=== PATIENT | male | born 1975 | race African-American/Black ===

== ENCOUNTER 2016-07-27 13:52 | Emergency (ER) | payer BC, OTHER ==
--- NOTE | 2016-07-27 15:33 | ED ---
General Adult HPI - General Chief complaint: Abdominal Pain Stated complaint: back pain Time Seen by Provider: 07/27/16 15:07 Source: patient, RN notes reviewed Mode of arrival: ambulatory Limitations: no limitations - History of Present Illness Initial comments: Patient 41-year-old male who presents emergency room today with a chief complaint of back pain with symptoms of nausea. He does admit that symptoms started yesterday in his back radiating around to the front of the epigastric area. States he felt somewhat nauseated and queasy today. Patient denies any vomiting. Patient denies any other sick contacts. He does admit that his back pain is worse with movements. Admits to a physical job is unsure if this is related. Patient states she did not take anything for these symptoms. He states he did miss work earlier today because he was not feeling well. Patient denies any recent fever, chills, shortness of breath, chest pain, abdominal pain , vomiting, numbness or tingling, dysuria or hematuria, constipation or diarrhea , headaches or visual changes, or any other complaints. - Related Data Home Medications Medication Instructions Recorded Confirmed Insulin Glargine [Lantus] 30 unit SQ QAM 05/22/16 05/26/16 Insulin Aspart [NovoLOG] See Protocol SQ AC-TID PRN 05/26/16 05/26/16 Previous Rx's Medication Instructions Recorded Cyclobenzaprine [Flexeril] 10 mg PO TID #20 tab 07/27/16 Ibuprofen [Motrin] 600 mg PO Q6HR PRN #40 day 07/27/16 Ondansetron Odt [Zofran ODT] 4 mg PO Q8HR PRN #20 tab 07/27/16 Allergies Allergy/AdvReac Type Severity Reaction Status Date / Time No Known Allergies Allergy Verified 05/26/16 15:25 Review of Systems ROS Statement: Those systems with pertinent positive or pertinent negative responses have been documented in the HPI. ROS Other: All systems not noted in ROS Statement are negative. Past Medical History Past Medical History: Diabetes Mellitus, Hypertension History of Any Multi-Drug Resistant Organisms: None Reported Past Surgical History: No Surgical Hx Reported Additional Past Surgical History / Comment(s): nephrotic syndrome repair as a child Past Psychological History: No Psychological Hx Reported Smoking Status: Current some day smoker Past Alcohol Use History: None Reported Past Drug Use History: Marijuana General Exam - General Exam Comments Initial Comments: General: The patient is awake and alert, in no distress, and does not appear acutely ill. Eye: Pupils are equal, round and reactive to light, extra-ocular movements are intact. No nystagmus. There is normal conjunctiva bilaterally. No signs of icterus. Ears, nose, mouth and throat: There are moist mucous membranes and no oral lesions. Neck: The neck is supple, there is no tenderness or JVD. Cardiovascular: There is a regular rate and rhythm. No murmur, rub or gallop is appreciated. Respiratory: Lungs are clear to auscultation, respirations are non-labored, breath sounds are equal. No wheezes, stridor, rales, or rhonchi. Gastrointestinal: Soft, non-distended, non-tender abdomen without masses or organomegaly noted. There is no rebound or guarding present. No CVA tenderness. Bowel sounds are unremarkable. Musculoskeletal: Normal appearance of the thoracic, lumbar spine. No step-offs form is appreciated. Patient does have paravertebral tenderness both on the right and left side of the upper lumbar. Pain reproduced with turning twisting and bending. Strength 5/5. Sensation intact. Pulses equal bilaterally 2+. Neurological: A&O x 3. CN II-XII intact, There are no obvious motor or sensory deficits. Coordination appears grossly intact. Speech is normal. Skin: Skin is warm and dry and no rashes or lesions are noted. Psychiatric: Cooperative, appropriate mood & affect, normal judgment. Limitations: no limitations Course Vital Signs 07/27/16 14:06 Temperature 98.6 F Pulse Rate 74 Respiratory 17 Rate Blood Pressure 134/75 O2 Sat by Pulse 99 Oximetry Medical Decision Making - Medical Decision Making It was discussed with patient about IV labs along with medications here in the emergency room. He has declined states he feels comfortable being discharged home with pain medicine, muscle relaxant, and nausea medication. Patient states he does need a work note for today. Patient has been advised to return to emergency room if any symptoms increase or worsen or for any other concerns. Patient states understanding and is in agreement. Disposition Clinical Impression: Back pain, Nausea Disposition: HOME SELF-CARE Condition: Good Instructions: Low Back Strain (ED) Additional Instructions: Please use medication as discussed. Beware that muscle relaxant may make you drowsy. Please follow-up with family doctor in the next 2 days of symptoms have not improved. Please return to emergency room if the symptoms increase or worsen or for any other concerns. Prescriptions: Cyclobenzaprine [Flexeril] 10 mg PO TID #20 tab Ibuprofen [Motrin] 600 mg PO Q6HR PRN #40 day PRN Reason: Pain Ondansetron Odt [Zofran ODT] 4 mg PO Q8HR PRN #20 tab PRN Reason: Nausea Time of Disposition: 15:32
[2016-07-27 15:43] VITALS: BP 141/86; PULSE 71; RESP 18; TEMP 98.3
== END 2016-07-27 15:43 | disposition home or self-care (01) ==
LOC: EC 13:52
DX: M54.9 Dorsalgia, unspecified (principal); R11.0 Nausea; E11.9 Type 2 diabetes mellitus without complications; F17.200 Nicotine dependence, unspecified, uncomplicated; Z79.4 Long term (current) use of insulin
CPT/HCPCS: 99283

== ENCOUNTER → 2016-08-01 | Outpatient (CLI) | payer BC, OTHER ==
--- NOTE | 2016-08-01 08:32 | US ---
EXAMINATION TYPE: US kidneys/renal and bladder DATE OF EXAM: 08/01/2016 8:23 AM COMPARISON: No previous CLINICAL HISTORY: Abd Pain r10.84 Low back pain m54.5. Abdomen and back pain x 3 days EXAM MEASUREMENTS: Right Kidney: 12.2 x 5.0 x 5.1 cm Left Kidney: 11.3 x 6.2 x 5.2 cm TECHNOLOGIST IMPRESSION: Right Kidney: wnl Left Kidney: wnl Bladder: wnl Bilateral Jets seen: yes There is no evidence for hydronephrosis at this point in time. No nephrolithiasis is seen. No krystle s are identified. The urinary bladder is anechoic. Bilateral ureteral jets are seen. IMPRESSION: Unremarkable study.
== END | disposition home or self-care (01) ==
LOC: RADUSWWP 08:02
PROVIDERS: ATTEND Family Medicine
DX: R10.84 Generalized abdominal pain (principal); M54.5 Low back pain
CPT/HCPCS: 76770

== ENCOUNTER → 2016-08-13 | Outpatient (CLI) | payer BC, OTHER ==
--- NOTE | 2016-08-13 08:34 | US ---
EXAMINATION TYPE: US gallbladder DATE OF EXAM: 08/13/2016 8:10 AM COMPARISON: NONE CLINICAL HISTORY: R10.84 ABD PAIN. Patient stated had epigastric pain 2 weeks prior, but no more symp toms are present; diabetic. Patient is scheduled for Upper GI today. EXAM MEASUREMENTS: Liver Length: 12.4cm Gallbladder Wall: 0.2 cm CBD: 0.3 cm Right Kidney: 11.4 x 5.9 x 4.3 cm Findings: Pancreas: wnl Liver: wnl Gallbladder: wnl; appears partially contracted due to thicker wall appearance (patient stated only h ad piece of hard candy this AM as is diabetic). Evidence for sonographic Lee's sign: No CBD: wnl Right Kidney: wnl IMPRESSION: 1. The gallbladder appears contracted. No obvious cholelithiasis.
--- NOTE | 2016-08-13 09:09 | FL ---
EXAMINATION TYPE: FL UGI air wo esophagus wo KUB DATE OF EXAM: 08/13/2016 9:01 AM COMPARISON: NONE HISTORY: R10.84 ABD.PAIN TECHNIQUE: A double contrast UGI study is performed. FINDINGS: Atmospheric Sciences Professor image of the abdomen shows no gross abnormality. The esophagus shows normal motility and emptying into the stomach. No evidence of hiatal hernia or s tricture noted. The stomach shows normal distensibility, peristalsis, and mucosal folds. No evidence of any mass or ulcer disease. No significant gastroesophageal reflux was seen during real time performance of this study. There are increased folds are noted to involve the duodenal bulb and sweep which may reflect duodenit is. No evidence for ulceration. IMPRESSION: Correlate for duodenitis.
== END | disposition home or self-care (01) ==
LOC: RADUSWWP 07:48
PROVIDERS: ATTEND Family Medicine
DX: K82.0 Obstruction of gallbladder (principal); R10.84 Generalized abdominal pain
CPT/HCPCS: 74246; 76705

== ENCOUNTER 2016-08-23 19:30 | Emergency (ER) | payer BC, OTHER ==
[2016-08-23 19:53] VITALS: BP 137/68; PULSE 89; RESP 16; TEMP 97.6
[2016-08-23 20:00] LABS: Glucose,Whole Blood 569 mg/dL (75-99)
[2016-08-23] MEDS ORDERED: SODIUM CHLORIDE 0.9% 2,000 ML IV ONE (20:03)
[2016-08-23] MEDS ORDERED: INSULIN LISPRO (humaLOG) 300 UNIT/3 ML VIAL SQ ONE (20:04)
[2016-08-23] MEDS ORDERED: INSULIN DETEMIR 100 UNIT/ML 10 ML VIAL SQ STA (20:04)
[2016-08-23 21:05] LABS: Glucose,Whole Blood 587 mg/dL (75-99)
--- NOTE | 2016-08-23 21:05 | ED ---
Recheck HPI - General Chief Complaint: Recheck/Abnormal Lab/Rx Stated Complaint: high sugar Time Seen by Provider: 08/23/16 19:48 Source: patient, RN notes reviewed Mode of arrival: ambulatory Limitations: no limitations - History of Present Illness Initial Comments: 41-year-old male present emergency Department chief complaint of medication refill. Patient is out of his insulin and which she takes NovoLog and Lantus. Patient states he has a prescription that he can fill morning. Patient states he ran out today. Patient denies any nausea, vomiting, diarrhea constipation. Patient denies fever, chills. Patient states that he is a known diabetic since age 17. Patient denies chest pain, headache, dizziness and cold like symptoms no signs of infection. - Related Data Home Medications Medication Instructions Recorded Confirmed Insulin Glargine [Lantus] 30 unit SQ QAM 05/22/16 08/23/16 Insulin Aspart [NovoLOG] See Protocol SQ AC-TID 05/26/16 08/23/16 Allergies Allergy/AdvReac Type Severity Reaction Status Date / Time No Known Allergies Allergy Verified 08/23/16 20:16 Review of Systems ROS Statement: Those systems with pertinent positive or pertinent negative responses have been documented in the HPI. ROS Other: All systems not noted in ROS Statement are negative. Past Medical History Past Medical History: Diabetes Mellitus, Hypertension History of Any Multi-Drug Resistant Organisms: None Reported Past Surgical History: No Surgical Hx Reported Additional Past Surgical History / Comment(s): nephrotic syndrome repair as a child Past Psychological History: No Psychological Hx Reported Smoking Status: Current every day smoker Past Alcohol Use History: None Reported Past Drug Use History: Marijuana General Exam Limitations: no limitations General appearance: alert, in no apparent distress Head exam: Present: atraumatic, normocephalic, normal inspection Eye exam: Present: normal appearance, PERRL, EOMI. Absent: scleral icterus, conjunctival injection, periorbital swelling ENT exam: Present: normal exam, normal oropharynx, mucous membranes moist, TM's normal bilaterally, normal external ear exam Neck exam: Present: normal inspection, full ROM. Absent: tenderness, meningismus, lymphadenopathy Respiratory exam: Present: normal lung sounds bilaterally. Absent: respiratory distress, wheezes, rales, rhonchi, stridor Cardiovascular Exam: Present: regular rate, normal rhythm, normal heart sounds. Absent: systolic murmur, diastolic murmur, rubs, gallop, clicks GI/Abdominal exam: Present: soft, normal bowel sounds. Absent: distended, tenderness, guarding, rebound, rigid Neurological exam: Present: alert, oriented X3, CN II-XII intact Course Vital Signs 08/23/16 19:48 Temperature 97.6 F Pulse Rate 89 Respiratory 16 Rate Blood Pressure 137/68 O2 Sat by Pulse 98 Oximetry Medical Decision Making - Medical Decision Making 41-year-old male presented for medication refill, hyperglycemia. Patient's blood sugars over 500. Patient is refusing IV, labs, IV fluids. Patient was given subcu insulin in which his sugar has now changed. Actually went up. Patient was refusing to stay for any further treatment stating that will go down. Patient will be signed out AGAINST MEDICAL ADVICE at this time. I did want a patient's that this can be life-threatening and he may develop DKA. - Lab Data Lab Results 08/23/16 08/23/16 Range/Units 19:56 21:02 POC Glucose (mg/dL) 569 H 587 H (75-99) mg/dL POC Glu Able Bodied Seaman ID Melissa Jade A Beers, Erika, A Disposition Clinical Impression: Hyperglycemia Disposition: Left Against Medical Advice Condition: Fair Referrals: Rubén Puente MD [Primary Care Provider] - 1-2 days Time of Disposition: 21:05
== END 2016-08-23 21:13 | disposition left against medical advice (07) ==
LOC: EC 19:30
DX: E11.65 Type 2 diabetes mellitus with hyperglycemia (principal); F17.200 Nicotine dependence, unspecified, uncomplicated; Z79.4 Long term (current) use of insulin
CPT/HCPCS: 36415; 99283

== ENCOUNTER 2016-10-08 18:41 | Emergency (ER) | payer BC, OTHER ==
[~2016-10-08 18:41] MED LIST: INSULIN LISPRO (humaLOG) 300 UNIT/3 ML VIAL SQ ONE
[2016-10-08 19:09] LABS: Glucose,Whole Blood 508 mg/dL (75-99)
[2016-10-08] MEDS ORDERED: INSULIN LISPRO (humaLOG) 300 UNIT/3 ML VIAL SQ ONE (19:10)
--- NOTE | 2016-10-08 19:15 | ED ---
General Adult HPI - General Chief complaint: Recheck/Abnormal Lab/Rx Stated complaint: diabetes high Time Seen by Provider: 10/08/16 19:02 Source: patient, RN notes reviewed Mode of arrival: ambulatory Limitations: no limitations - History of Present Illness Initial comments: Patient's 41-year-old male who presents emergency room today with a chief complaint of needing insulin. Patient does admit that he missed his appointment with his family doctor and ran out of his insulin. He does admit that he can feel that his insulins been running high for the last 2 days. He states that he has been experiencing less often. He states he has been thirsty drinking lots of fluids. He denies any other complaints associated symptoms. Patient denies any recent fever, chills, shortness of breath, chest pain, back pain, abdominal pain, nausea or vomiting, numbness or tingling, dysuria or hematuria, constipation or diarrhea, headaches or visual changes, or any other complaints. - Related Data Home Medications Medication Instructions Recorded Confirmed Insulin Glargine [Lantus] 30 unit SQ QAM 05/22/16 08/23/16 Insulin Aspart [NovoLOG] See Protocol SQ AC-TID 05/26/16 08/23/16 Allergies Allergy/AdvReac Type Severity Reaction Status Date / Time No Known Allergies Allergy Verified 10/08/16 19:06 Review of Systems ROS Statement: Those systems with pertinent positive or pertinent negative responses have been documented in the HPI. ROS Other: All systems not noted in ROS Statement are negative. Past Medical History Past Medical History: Diabetes Mellitus, Hypertension History of Any Multi-Drug Resistant Organisms: None Reported Past Surgical History: No Surgical Hx Reported Additional Past Surgical History / Comment(s): nephrotic syndrome repair as a child Past Psychological History: No Psychological Hx Reported Smoking Status: Current every day smoker Past Alcohol Use History: None Reported Past Drug Use History: Marijuana General Exam - General Exam Comments Initial Comments: General: The patient is awake and alert, in no distress, and does not appear acutely ill. Eye: Pupils are equal, round and reactive to light, extra-ocular movements are intact. No nystagmus. There is normal conjunctiva bilaterally. No signs of icterus. Ears, nose, mouth and throat: There are moist mucous membranes and no oral lesions. Neck: The neck is supple, there is no tenderness or JVD. Cardiovascular: There is a regular rate and rhythm. No murmur, rub or gallop is appreciated. Respiratory: Lungs are clear to auscultation, respirations are non-labored, breath sounds are equal. No wheezes, stridor, rales, or rhonchi. Gastrointestinal: Soft, non-distended, non-tender abdomen without masses or organomegaly noted. There is no rebound or guarding present. No CVA tenderness. Musculoskeletal: Normal ROM, no tenderness. Strength 5/5. Sensation intact. Pulses equal bilaterally 2+. Neurological: A&O x 3. CN II-XII intact, There are no obvious motor or sensory deficits. Coordination appears grossly intact. Speech is normal. Skin: Skin is warm and dry and no rashes or lesions are noted. Psychiatric: Cooperative, appropriate mood & affect, normal judgment. Limitations: no limitations Course Vital Signs 10/08/16 18:59 Temperature 99.2 F Pulse Rate 75 Respiratory 18 Rate Blood Pressure 157/72 O2 Sat by Pulse 96 Oximetry Medical Decision Making - Medical Decision Making Options were discussed with patient about lab work and IV here in the emergency room. He has declined this. States she just wants a shot of his insulin. Patient denies any nausea, vomiting. He denies any abdominal pain. Patient states he will see his family doctor tomorrow for his prescriptions in the morning. Patient states is not 1 any other interventions done. Patient will be discharged after some cutaneous insulin here in emergency room. - Lab Data Lab Results 10/08/16 Range/Units 19:04 POC Glucose (mg/dL) 508 H (75-99) mg/dL POC Glu Hr Specialist Shavonne Velasquze Disposition Clinical Impression: Hyperglycemia Disposition: HOME SELF-CARE Condition: Good Instructions: Diabetic Hyperglycemia (ED) Additional Instructions: Please follow-up with your family doctor tomorrow for your prescriptions as discussed. Please return to emergency room if any symptoms increase worsen or for any other concerns. Time of Disposition: 19:14
[2016-10-08 19:19] VITALS: BP 157/72; PULSE 75; RESP 18; TEMP 99.2
[2016-10-08] MEDS ORDERED: INSULIN GLARGINE 100 UNIT/ML 10 ML VIAL SQ STA (19:31)
== END 2016-10-08 19:38 | disposition home or self-care (01) ==
LOC: EC 18:41
DX: E11.65 Type 2 diabetes mellitus with hyperglycemia (principal); I10 Essential (primary) hypertension; F17.200 Nicotine dependence, unspecified, uncomplicated; Z79.4 Long term (current) use of insulin
CPT/HCPCS: 36415; 99284

== ENCOUNTER 2016-12-22 04:11 | Emergency (ER) | payer OTHER ==
[2016-12-22 04:54] VITALS: TEMP 97.8
[2016-12-22] MEDS ORDERED: ASPIRIN 81 MG CHEW PO STA (05:04)
[2016-12-22] MEDS ORDERED: MORPHINE SULFATE 4 MG/ML SYRINGE IV STA (05:04)
[2016-12-22] MEDS ORDERED: KETOROLAC 30 MG/ML 1 ML VIAL IVP STA (05:04)
--- NOTE | 2016-12-22 05:08 | ED ---
Chest Pain HPI - General Chief Complaint: Chest Pain Stated Complaint: chest pain-muscular Time Seen by Provider: 12/22/16 04:58 Source: patient Mode of arrival: ambulatory - History of Present Illness Initial Comments: This 41-year-old white male presents with a complaint of some chest pain. He states that it is in the midsternal region. It started 3 days ago after he was helping to lift a fridge. He states that it is a very sharp pain and is worse with any movement or deep inspiration. He states that it is severely painful if he sneezes. He has some slight shortness of breath with deep inspiration. He was having some right shoulder pain issues over the past year with movement of his shoulder but this seems to have improved recently. He denies any previous similar incidents. He tried Motrin with limited relief. No other complaints or modifying factors. There is no leg pain or swelling or history of DVT or PE. - Related Data Home Medications Medication Instructions Recorded Confirmed Insulin Glargine [Lantus] 30 unit SQ QAM 05/22/16 10/08/16 Insulin Aspart [NovoLOG] See Protocol SQ AC-TID 05/26/16 10/08/16 Allergies Allergy/AdvReac Type Severity Reaction Status Date / Time No Known Allergies Allergy Verified 10/08/16 19:22 Review of Systems ROS Statement: Those systems with pertinent positive or pertinent negative responses have been documented in the HPI. ROS Other: All systems not noted in ROS Statement are negative. Past Medical History Past Medical History: Diabetes Mellitus, Hypertension History of Any Multi-Drug Resistant Organisms: None Reported Past Surgical History: No Surgical Hx Reported Additional Past Surgical History / Comment(s): nephrotic syndrome repair as a child Past Psychological History: No Psychological Hx Reported Smoking Status: Current every day smoker Past Alcohol Use History: None Reported Past Drug Use History: Marijuana General Exam - General Exam Comments Initial Comments: GENERAL: The patient is well nourished and well hydrated. VITAL SIGNS: Heart rate, blood pressure, respiratory rate reviewed as recorded in nurse's notes. EYES: Pupils are round and reactive. Extraocular movements are intact. No conjunctival / lid redness or swelling. ENT: No external evidence of injury, swelling, or ecchymosis. Airway is patent. Throat is clear. NECK: Nontender. No swelling or evidence of injury. No subcutaneous emphysema. Trachea is midline. No thyroid mass. HEART: Regular rate and rhythm. Good peripheral pulses. LUNGS/CHEST: Breath sounds clear and equal bilaterally. No rales, rhonchi, or wheezes. There is exquisite point tenderness over the costochondral junction of the anterior chest bilaterally. ABDOMEN: Abdomen soft without tenderness. No palpable masses or organomegaly. No peritoneal signs. No abdominal wall swelling or ecchymosis. EXTREMITIES: No extremity tenderness. Normal muscle tone and function. No thoracolumbar tenderness. NEUROLOGIC: Sensation is grossly intact. Cranial nerve exam reveals face is symmetrical, tongue is midline, speech is clear. SKIN: No abrasions or ecchymosis is noted. No induration or masses noted. PSYCHIATRIC: Alert and oriented. Appropriate behavior and judgment. Course Vital Signs 12/22/16 12/22/16 04:51 06:47 Temperature 97.8 F Pulse Rate 69 72 Respiratory 18 20 Rate Blood Pressure 132/76 169/110 O2 Sat by Pulse 100 99 Oximetry Chest [facility] The patient was seen and examined. All diagnostics were reviewed. An EKG was done which shows a normal sinus rhythm at a rate of 68. There does appear to be some ST elevation primarily in the anterolateral leads. This was compared to previous EKG and it does show similar type of appearance likely related to early repolarization. The [place] interval is 134, the QRS duration is 100, and the QTc interval is 404. He does receive an aspirin as well as some Toradol and 4 of morphine. The laboratory does show evidence of hypoglycemia. He is given some juice and food in the ER. He is asymptomatic from this. Remainder of the labs are all within normal limits. The chest x-ray does not show any acute process. He does receive some morphine and has some moderate relief. It is felt as though his chest pain is very musculoskeletal in nature. He is point tender directly over the costochondral region bilaterally. His pain is very sharp and it is easily reproducible. It is felt as though he is stable for discharge. He refuses any home pain medications but states that he will take some Motrin. He leaves in no identifiable distress. He is counseled regarding hypoglycemia as well. He hadn't ate since approximate 7:00 the past evening which is approximately 12 hours. He is counseled regarding diet therapy and diabetes. Disposition Clinical Impression: Chest wall pain, Costochondritis, Hypoglycemia Disposition: HOME SELF-CARE Condition: Good Instructions: Chest Pain (ED), Costochondritis (ED), Hypoglycemia in a Person with Diabetes (ED) Additional Instructions: Please use Tylenol and/or Motrin as needed for any additional pain. Referrals: Rubén Puente MD [Primary Care Provider] - 1-2 days Time of Disposition: 06:59
[2016-12-22 05:46] LABS: Basophils % (A) 0 %; CH 33.6; CHCM 35.4; Eosinophils # (A) 0.1 k/uL (0-0.7); Eosinophils % (A) 2 %; HCT 39.3 % (39.0-53.0); HDW 2.74; Luc # (Auto) 0.11; Luc % (Auto) 1; Lymphocytes # (A) 1.6 k/uL (1.0-4.8); Lymphocytes % (A) 17 %; MCHC 35.6 g/dL (31.0-37.0); MCV 95.3 fL (80.0-100.0); Mean Platelet Volume 7.9; Monocytes # (A) 0.5 k/uL (0-1.0); Monocytes % (A) 6 %; Neutrophils # (A) 6.6 k/uL (1.3-7.7); Neutrophils % (A) 74 %; RBC 4.12 m/uL (4.30-5.90); RDW 12.3 % (11.5-15.5); WBC (Perox) 8.85
[2016-12-22 06:02] LABS: INR 1.2 (<1.2); Partial Thromboplastin Time 23.3 sec (22.0-30.0); Prothrombin Time 11.7 sec (9.0-12.0)
[2016-12-22 06:13] LABS: ALT 25 U/L (21-72); AST 25 U/L (17-59); Alkaline Phosphatase 64 U/L (38-126); Anion Gap 4 mmol/L; Blood Urea Nitrogen 10 mg/dL (9-20); Calcium 8.9 mg/dL (8.4-10.2); Carbon Dioxide 31 mmol/L (22-30); Chloride 107 mmol/L (98-107); Magnesium 1.7 mg/dL (1.6-2.3); Non-African American GFR(MDRD) >60 (>60 ml/min/1.73 sqM); Potassium 3.9 mmol/L (3.5-5.1); Sodium 142 mmol/L (137-145); Total Bilirubin 0.8 mg/dL (0.2-1.3); Total Protein 5.9 g/dL (6.3-8.2)
[2016-12-22 06:20] LABS: Creatine Kinase 344 U/L (55-170)
[2016-12-22 06:33] LABS: Creatine Kinase MB 1.6 ng/mL (0.0-2.4); Troponin I <0.012 ng/mL (0.000-0.034)
--- NOTE | 2016-12-22 06:33 | XR ---
EXAM: XR Chest, 2 Views CLINICAL HISTORY: Reason: Chest Pain TECHNIQUE: Frontal and lateral views of the chest. COMPARISON: No relevant prior studies available. FINDINGS: Lungs: Unremarkable. No consolidation. Pleural space: Unremarkable. No pneumothorax. Heart: Unremarkable. No cardiomegaly. Mediastinum: Unremarkable. Bones/joints: Unremarkable. IMPRESSION: Normal chest x-rays.
[2016-12-22 06:48] VITALS: PULSE 72; RESP 20
[2016-12-22 07:06] LABS: Glucose 47 mg/dL (74-99)
[2016-12-22 07:22] LABS: Glucose,Whole Blood 140 mg/dL (75-99)
[2016-12-22 07:27] VITALS: BP 172/102
== END 2016-12-22 07:23 | disposition home or self-care (01) ==
LOC: EC 04:11
DX: M94.0 Chondrocostal junction syndrome [Tietze] (principal); E11.649 Type 2 diabetes mellitus with hypoglycemia without coma; M25.511 Pain in right shoulder; I10 Essential (primary) hypertension; F17.200 Nicotine dependence, unspecified, uncomplicated; Z79.4 Long term (current) use of insulin
CPT/HCPCS: 36415; 93005; 80053; 82550; 82553; 83735; 84484; 85025; 85610; 85730; 71020; 99285; 96374; 96375; J2270; J1885

== ENCOUNTER 2016-12-23 05:53 | Emergency (ER) | payer OTHER ==
[2016-12-23] MEDS ORDERED: KETOROLAC 30 MG/ML 1 ML VIAL IVP STA (06:10)
[2016-12-23 06:43] LABS: Basophils % (A) 0 %; CH 33.5; CHCM 34.9; Eosinophils # (A) 0.3 k/uL (0-0.7); Eosinophils % (A) 5 %; HCT 40.1 % (39.0-53.0); HDW 2.75; HGB 14.1 gm/dL (13.0-17.5); Luc # (Auto) 0.07; Luc % (Auto) 1; Lymphocytes # (A) 1.3 k/uL (1.0-4.8); Lymphocytes % (A) 19 %; MCH 33.9 pg (25.0-35.0); MCHC 35.2 g/dL (31.0-37.0); MCV 96.3 fL (80.0-100.0); Mean Platelet Volume 7.5; Monocytes # (A) 0.3 k/uL (0-1.0); Monocytes % (A) 5 %; Neutrophils # (A) 4.5 k/uL (1.3-7.7); Neutrophils % (A) 69 %; RBC 4.16 m/uL (4.30-5.90); RDW 11.8 % (11.5-15.5); WBC 6.5 k/uL (3.8-10.6); WBC (Perox) 7.03
--- NOTE | 2016-12-23 06:49 | ED ---
Chest Pain HPI - General Source: patient Mode of arrival: ambulatory Limitations: no limitations - History of Present Illness MD Complaint: chest pain Onset/Timin -: days(s) Onset: during rest Pain Location: left chest, right chest Pain Radiation: none Severity: severe Quality: sharp Consistency: constant Improves With: remaining still Worsens With: palpation, movement, other (Coughing) Context: recent illness Other Symptoms: cough Treatments Prior to Arrival: none <Jonathon Aj - Last Filed: 12/23/16 06:52> <Trevor Oshea - Last Filed: 12/23/16 09:12> - General Chief Complaint: Chest Pain Stated Complaint: Chest Pain Time Seen by Provider: 12/23/16 06:02 - History of Present Illness Initial Comments: This patient is a 41-year-old man who states that he is not going on for days of having bilateral chest pain along the sternal border. Patient states that it is worse anytime he changes position, touches his chest, or coughs. He has been having frequent cough for the past 3-4 days as well. The patient was seen here and evaluated yesterday for the same. The patient denies having anginal type symptoms, including no dyspnea, diaphoresis, nausea or vomiting, palpitations, lightheadedness or syncope. (Jonathon Aj) - Related Data Home Medications Medication Instructions Recorded Confirmed Insulin Glargine [Lantus] 30 unit SQ QAM 05/22/16 12/23/16 Insulin Aspart [NovoLOG] See Protocol SQ AC-TID 05/26/16 12/23/16 Allergies Allergy/AdvReac Type Severity Reaction Status Date / Time No Known Allergies Allergy Verified 12/23/16 08:14 Review of Systems ROS Other: All systems not noted in ROS Statement are negative. Constitutional: Denies: fever, chills, weakness Respiratory: Reports: as per HPI, cough. Denies: dyspnea, wheezes, hemoptysis Cardiovascular: Reports: as per HPI, chest pain. Denies: palpitations, orthopnea, edema, syncope Gastrointestinal: Denies: abdominal pain, nausea, vomiting Genitourinary: Denies: dysuria Musculoskeletal: Denies: back pain Skin: Denies: rash Neurological: Denies: headache, weakness, numbness <Jonathon Aj - Last Filed: 12/23/16 06:52> ROS Other: All systems not noted in ROS Statement are negative. <Trevor Oshea - Last Filed: 12/23/16 09:12> ROS Statement: Those systems with pertinent positive or pertinent negative responses have been documented in the HPI. EKG Findings - EKG Comments: EKG Findings:: Patient has sinus rhythm with a rate of [address] elevation consistent with early repolarization. - EKG Results: EKG: interpreted by ERMD, normal axis, normal QRS, no acute changes EKG shows: bradycardia <Jonathon Aj - Last Filed: 12/23/16 06:52> Past Medical History Past Medical History: Diabetes Mellitus, Hypertension History of Any Multi-Drug Resistant Organisms: None Reported Past Surgical History: No Surgical Hx Reported Additional Past Surgical History / Comment(s): nephrotic syndrome repair as a child Past Psychological History: No Psychological Hx Reported Smoking Status: Current every day smoker Past Alcohol Use History: None Reported Past Drug Use History: Marijuana <Jean MarieJonathon - Last Filed: 12/23/16 06:52> General Exam Limitations: no limitations General appearance: alert, in no apparent distress Head exam: Present: atraumatic, normocephalic Eye exam: Present: normal appearance. Absent: scleral icterus, conjunctival injection Neck exam: Present: full ROM Respiratory exam: Present: normal lung sounds bilaterally, chest wall tenderness. Absent: respiratory distress, wheezes, rales, rhonchi, stridor Cardiovascular Exam: Present: regular rate, normal rhythm, normal heart sounds. Absent: systolic murmur, diastolic murmur, rubs, gallop GI/Abdominal exam: Present: soft. Absent: tenderness, guarding, rebound, mass Extremities exam: Present: normal inspection, normal capillary refill. Absent: pedal edema, calf tenderness Back exam: Present: normal inspection. Absent: CVA tenderness (R), CVA tenderness (L) Neurological exam: Present: alert Skin exam: Present: warm, dry, intact, normal color. Absent: rash <Jean MarieJonathon - Last Filed: 12/23/16 06:52> Chest Pain MDM <Jean MarieJonathon - Last Filed: 12/23/16 06:52> <Trevor Oshea - Last Filed: 12/23/16 09:12> - MDM 41 male to the ER for evaluation of chest pain history of diabetes, patient has negative enzymes 2 ER visits, patient was given pain control follow-up in the office with Dr. Givens (Trevor Oshea) Disposition <Jonathon Aj - Last Filed: 12/23/16 06:52> <Trevor Oshea - Last Filed: 12/23/16 09:12> Clinical Impression: Chest wall pain, Costochondritis, Chest pain Disposition: ADMITTED IP TO THIS HOSP Condition: Fair Instructions: Chest Pain (ED), Costochondritis (ED) Referrals: Rubén Puente MD [Primary Care Provider] - 1-2 days
[2016-12-23 06:53] LABS: ALT 33 U/L (21-72); AST 22 U/L (17-59); Alkaline Phosphatase 82 U/L (38-126); Amylase 45 U/L (30-110); Anion Gap 4 mmol/L; Blood Urea Nitrogen 15 mg/dL (9-20); Calcium 8.8 mg/dL (8.4-10.2); Carbon Dioxide 31 mmol/L (22-30); Chloride 102 mmol/L (98-107); Glucose 205 mg/dL (74-99); Magnesium 1.7 mg/dL (1.6-2.3); Non-African American GFR(MDRD) >60 (>60 ml/min/1.73 sqM); Potassium 4.4 mmol/L (3.5-5.1); Sodium 137 mmol/L (137-145); Total Bilirubin 0.6 mg/dL (0.2-1.3); Total Protein 5.8 g/dL (6.3-8.2)
--- NOTE | 2016-12-23 06:58 | XR ---
EXAM: XR Chest, 1 View CLINICAL HISTORY: Reason: chest pain TECHNIQUE: Frontal view of the chest. COMPARISON: Radiographs of the chest performed earlier the same day. FINDINGS: Lungs: Unremarkable. No consolidation. Pleural space: Unremarkable. No pneumothorax. Heart: Unremarkable. No cardiomegaly. Mediastinum: Unremarkable. Bones/joints: Unremarkable. IMPRESSION: Normal chest x-ray.
[2016-12-23 07:11] LABS: INR 1.1 (<1.2); Prothrombin Time 11.1 sec (9.0-12.0)
[2016-12-23] MEDS ORDERED: MORPHINE SULFATE 4 MG/ML SYRINGE IV PRN (09:05)
[2016-12-23] MEDS ORDERED: ASPIRIN 81 MG CHEW PO STA (09:05)
[2016-12-23] MEDS ORDERED: NITROGLYCERIN SL TABS 0.4 MG TAB SUBLINGUAL PRN (09:05)
[2016-12-23] MEDS ORDERED: SODIUM CHLORIDE 0.9% 1,000 ML IV SCH (09:15)
[2016-12-23 09:21] VITALS: BP 148/89; PULSE 70; RESP 18; TEMP 97.7
[2016-12-24] MEDS ORDERED: ASPIRIN 325 MG TAB PO SCH (09:00)
== END 2016-12-23 09:30 | disposition other institution (70) ==
LOC: EC 05:53
DX: M94.0 Chondrocostal junction syndrome [Tietze] (principal); R00.1 Bradycardia, unspecified; E11.9 Type 2 diabetes mellitus without complications; F17.200 Nicotine dependence, unspecified, uncomplicated; Z79.4 Long term (current) use of insulin
CPT/HCPCS: 99285; 96374; 36415; 93005; 85379; 80053; 82150; 83690; 83735; 84484; 85025; 85610; 85730; 87040; 71010; J1885

== ENCOUNTER 2017-05-30 22:14 | Emergency (ER) | payer OTHER ==
[2017-05-30 22:18] VITALS: BP 164/88; PULSE 82; RESP 18; TEMP 97.3
[2017-05-30 22:28] LABS: Glucose,Whole Blood 525 mg/dL (75-99)
[2017-05-30] MEDS ORDERED: SODIUM CHLORIDE 0.9% 1,000 ML IV STA ×2 (22:41)
[2017-05-30] MEDS ORDERED: INSULIN REGULAR 100 UNIT/ML VIAL IV ONE (22:42)
--- NOTE | 2017-05-30 23:00 | ED ---
General Adult HPI - General Chief complaint: Recheck/Abnormal Lab/Rx Stated complaint: Sugar level High Time Seen by Provider: 05/30/17 22:27 Source: patient, RN notes reviewed, old records reviewed Mode of arrival: ambulatory Limitations: no limitations - History of Present Illness Initial comments: 41-year-old male presents for his Mg today chief complaint of high blood sugars. He reportedly was 600 when he was at work. He did have insulin at 3: 00 today. No recent and some was given. He reports he does not feel like he is in DKA at this time, denies any abdominal pain, diarrhea or vomiting. - Related Data Home Medications Medication Instructions Recorded Confirmed Insulin Glargine [Lantus] 30 unit SQ DAILY 05/22/16 05/30/17 Insulin Aspart [NovoLOG] See Protocol SQ AC-TID 05/26/16 05/30/17 Allergies Allergy/AdvReac Type Severity Reaction Status Date / Time No Known Allergies Allergy Verified 05/30/17 22:23 Review of Systems ROS Statement: Those systems with pertinent positive or pertinent negative responses have been documented in the HPI. ROS Other: All systems not noted in ROS Statement are negative. Past Medical History Past Medical History: Diabetes Mellitus, Hypertension History of Any Multi-Drug Resistant Organisms: None Reported Past Surgical History: No Surgical Hx Reported Additional Past Surgical History / Comment(s): nephrotic syndrome repair as a child Past Psychological History: No Psychological Hx Reported Smoking Status: Current every day smoker Past Alcohol Use History: None Reported Past Drug Use History: Marijuana General Exam - General Exam Comments Initial Comments: Well appearing 41 year old male, no distress Limitations: no limitations General appearance: alert, in no apparent distress Head exam: Present: atraumatic, normocephalic, normal inspection Eye exam: Present: normal appearance, PERRL, EOMI. Absent: scleral icterus, conjunctival injection, periorbital swelling ENT exam: Present: normal exam, mucous membranes moist Neck exam: Present: normal inspection. Absent: tenderness, meningismus, lymphadenopathy Respiratory exam: Present: normal lung sounds bilaterally. Absent: respiratory distress, wheezes, rales, rhonchi, stridor Cardiovascular Exam: Present: regular rate, normal rhythm, normal heart sounds. Absent: systolic murmur, diastolic murmur, rubs, gallop, clicks GI/Abdominal exam: Present: soft, normal bowel sounds. Absent: distended, tenderness, guarding, rebound, rigid Back exam: Present: normal inspection Neurological exam: Present: alert, oriented X3, CN II-XII intact Psychiatric exam: Present: normal affect, normal mood Course Vital Signs 05/30/17 05/31/17 22:16 00:25 Temperature 97.3 F L Pulse Rate 82 Respiratory 18 18 Rate Blood Pressure 164/88 O2 Sat by Pulse 100 Oximetry Medical Decision Making - Medical Decision Making Patient is a 41 year old male with insulin depenedent diabetes, presents today for elevated blood sugar. Patient took it at work and it was over 600. Patient did not take insulin recently. Discussed checking lab work to determine if patient is in DKA. Patient refused IV. Discussed that he thinks he is not in DKA due to no vomiting or symptoms of DKA. Discussed that if he refuses IV, will dose insulin and monitor blood sugar. Patient BG was brought down to an acceptable rnge and patient request discharge. Return parameters discussd. - Lab Data Lab Results 05/30/17 05/30/17 05/30/17 Range/Units 22:25 23:15 23:47 POC Glucose (mg/dL) 525 H 491 H 336 H (75-99) mg/dL POC Glu Spray Painter Jo Ann Lozoya Emily Kajawa, Emily 05/31/17 Range/Units 00:14 POC Glucose (mg/dL) 184 H (75-99) mg/dL POC Glu Spray Painter ID Jo Ann Marcus Disposition Clinical Impression: Hyperglycemia Disposition: HOME SELF-CARE Condition: Good Instructions: Insulin Scale A ([facility]), Diabetic Hyperglycemia (ED) Additional Instructions: Follow up with her primary care provider. He is to use insulin sliding scale as you're supposed to. Return to emergency department if any alarming signs or symptoms occur. Referrals: Rubén Puente MD [Primary Care Provider] - 1-2 days Time of Disposition: 00:18
[2017-05-30 23:17] LABS: Glucose,Whole Blood 491 mg/dL (75-99)
[2017-05-30 23:48] LABS: Glucose,Whole Blood 336 mg/dL (75-99)
[2017-05-31 00:16] LABS: Glucose,Whole Blood 184 mg/dL (75-99)
== END 2017-05-31 00:25 | disposition home or self-care (01) ==
LOC: EC 22:14
DX: E11.65 Type 2 diabetes mellitus with hyperglycemia (principal); F17.200 Nicotine dependence, unspecified, uncomplicated; Z79.4 Long term (current) use of insulin; Z53.20 Procedure and treatment not carried out because of patient's decision for unspecified reasons
CPT/HCPCS: 36415; 99284

== ENCOUNTER 2017-06-20 12:39 | Emergency (ER) | payer OTHER ==
[2017-06-20] MEDS ORDERED: SODIUM CHLORIDE 0.9% 1,000 ML IV STA (13:46)
--- NOTE | 2017-06-20 14:15 | ED ---
Nausea/Vomiting/Diarrhea HPI - General Chief complaint: Nausea/Vomiting/Diarrhea Stated complaint: Flu symptoms Time Seen by Provider: 06/20/17 13:46 Source: patient, RN notes reviewed Mode of arrival: ambulatory Limitations: no limitations - History of Present Illness Initial comments: This a 41-year-old male presents emergency Department chief complaint of diarrhea. Patient states that diarrhea for 2 days. Sutures eats he has occasional loose watery. He states she's had multiple people at work with similar symptoms. He denies any vomiting slight nausea. Patient states that is also but ran out of his Lantus and NovoLog. He states his blood sugars have been slightly variable. Patient denies any chest pain, shortness breath, fever , chills, headache or dizziness. Patient states he does feel that he may be dehydrated. - Related Data Previous Rx's Medication Instructions Recorded Insulin Aspart [NovoLOG] See Protocol SQ AC-TID #1 vial 06/20/17 Insulin Glargine [Lantus] 30 unit SQ DAILY #1 vial 06/20/17 Allergies Allergy/AdvReac Type Severity Reaction Status Date / Time No Known Allergies Allergy Verified 06/20/17 14:06 Review of Systems ROS Statement: Those systems with pertinent positive or pertinent negative responses have been documented in the HPI. ROS Other: All systems not noted in ROS Statement are negative. Past Medical History Past Medical History: Diabetes Mellitus, Hypertension History of Any Multi-Drug Resistant Organisms: None Reported Past Surgical History: No Surgical Hx Reported Additional Past Surgical History / Comment(s): nephrotic syndrome repair as a child Past Psychological History: No Psychological Hx Reported Smoking Status: Current every day smoker Past Alcohol Use History: Occasional Past Drug Use History: Marijuana General Exam Limitations: no limitations General appearance: alert, in no apparent distress Head exam: Present: atraumatic, normocephalic, normal inspection Eye exam: Present: normal appearance, PERRL, EOMI. Absent: scleral icterus, conjunctival injection, periorbital swelling ENT exam: Present: normal exam, normal oropharynx, mucous membranes moist Neck exam: Present: normal inspection, full ROM. Absent: tenderness, meningismus, lymphadenopathy Respiratory exam: Present: normal lung sounds bilaterally. Absent: respiratory distress, wheezes, rales, rhonchi, stridor Cardiovascular Exam: Present: regular rate, normal rhythm, normal heart sounds. Absent: systolic murmur, diastolic murmur, rubs, gallop, clicks GI/Abdominal exam: Present: soft, normal bowel sounds. Absent: distended, tenderness, guarding, rebound, rigid Back exam: Absent: CVA tenderness (R), CVA tenderness (L) Neurological exam: Present: alert, oriented X3, CN II-XII intact Skin exam: Present: warm, dry, intact, normal color. Absent: rash Course Vital Signs 06/20/17 06/20/17 13:33 15:26 Temperature 97 F L Pulse Rate 74 64 Respiratory 18 19 Rate Blood Pressure 133/82 138/78 O2 Sat by Pulse 97 99 Oximetry Medical Decision Making - Medical Decision Making 41-year-old male present emergency department for diarrhea. Patient attempted for 2 days has had multiple contacts with some her symptoms. This is most with a viral diarrhea. Patient had elevated blood sugar was given 2 L of fluid, insulin. Blood sugar has responded well. Patient states he feels enough for discharge at this time he'll be given prescription for his insulin advised follow-up for recheck. - Lab Data Result diagrams: 06/20/17 13:59 06/20/17 13:59 Lab Results 06/20/17 06/20/17 06/20/17 Range/Units 13:59 13:59 13:59 WBC 5.9 (3.8-10.6) k/uL RBC 4.58 (4.30-5.90) m/uL Hgb 14.4 (13.0-17.5) gm/dL Hct 44.1 (39.0-53.0) % MCV 96.2 (80.0-100.0) fL MCH 31.5 (25.0-35.0) pg MCHC 32.7 (31.0-37.0) g/dL RDW 12.9 (11.5-15.5) % Plt Count 238 (150-450) k/uL Neutrophils % 70 % Lymphocytes % 22 % Monocytes % 4 % Eosinophils % 3 % Basophils % 0 % Neutrophils # 4.1 (1.3-7.7) k/uL Lymphocytes # 1.3 (1.0-4.8) k/uL Monocytes # 0.3 (0-1.0) k/uL Eosinophils # 0.2 (0-0.7) k/uL Basophils # 0.0 (0-0.2) k/uL Sodium 130 L (137-145) mmol/L Potassium 5.0 (3.5-5.1) mmol/L Chloride 95 L (98-107) mmol/L Carbon Dioxide 26 (22-30) mmol/L Anion Gap 9 mmol/L BUN 20 (9-20) mg/dL Creatinine 1.02 (0.66-1.25) mg/dL Est GFR (MDRD) Af Amer >60 (>60 ml/min/1.73 sqM) Est GFR (MDRD) Non-Af >60 (>60 ml/min/1.73 sqM) Glucose 678 H* (74-99) mg/dL POC Glucose (mg/dL) (75-99) mg/dL POC Glu Transformation Consultant ID Calcium 9.4 (8.4-10.2) mg/dL Total Bilirubin 0.6 (0.2-1.3) mg/dL AST 25 (17-59) U/L ALT 44 (21-72) U/L Alkaline Phosphatase 144 H (38-126) U/L Total Protein 6.0 L (6.3-8.2) g/dL Albumin 3.6 (3.5-5.0) g/dL Amylase 51 (30-110) U/L Lipase 54 (23-300) U/L Urine Color Urine Appearance (Clear) Urine pH (5.0-8.0) Ur Specific [place] (1.001-1.035) Urine Protein (Negative) Urine Glucose (UA) (Negative) Urine Ketones (Negative) Urine Blood (Negative) Urine Nitrite (Negative) Urine Bilirubin (Negative) Urine Urobilinogen (<2.0) mg/dL Ur Leukocyte Esterase (Negative) Acetone, Qual Negative (Negative) 06/20/17 06/20/17 06/20/17 Range/Units 14:15 14:27 15:02 WBC (3.8-10.6) k/uL RBC (4.30-5.90) m/uL Hgb (13.0-17.5) gm/dL Hct (39.0-53.0) % MCV (80.0-100.0) fL MCH (25.0-35.0) pg MCHC (31.0-37.0) g/dL RDW (11.5-15.5) % Plt Count (150-450) k/uL Neutrophils % % Lymphocytes % % Monocytes % % Eosinophils % % Basophils % % Neutrophils # (1.3-7.7) k/uL Lymphocytes # (1.0-4.8) k/uL Monocytes # (0-1.0) k/uL Eosinophils # (0-0.7) k/uL Basophils # (0-0.2) k/uL Sodium (137-145) mmol/L Potassium (3.5-5.1) mmol/L Chloride (98-107) mmol/L Carbon Dioxide (22-30) mmol/L Anion Gap mmol/L BUN (9-20) mg/dL Creatinine (0.66-1.25) mg/dL Est GFR (MDRD) Af Amer (>60 ml/min/1.73 sqM) Est GFR (MDRD) Non-Af (>60 ml/min/1.73 sqM) Glucose (74-99) mg/dL POC Glucose (mg/dL) >600 H 418 H (75-99) mg/dL POC Glu Transformation Consultant Erika Carpenter Joanna Calcium (8.4-10.2) mg/dL Total Bilirubin (0.2-1.3) mg/dL AST (17-59) U/L ALT (21-72) U/L Alkaline Phosphatase (38-126) U/L Total Protein (6.3-8.2) g/dL Albumin (3.5-5.0) g/dL Amylase (30-110) U/L Lipase (23-300) U/L Urine Color Colorless Urine Appearance Clear (Clear) Urine pH 6.0 (5.0-8.0) Ur Specific [place] 1.023 (1.001-1.035) Urine Protein Negative (Negative) Urine Glucose (UA) 4+ H (Negative) Urine Ketones Negative (Negative) Urine Blood Negative (Negative) Urine Nitrite Negative (Negative) Urine Bilirubin Negative (Negative) Urine Urobilinogen <2.0 (<2.0) mg/dL Ur Leukocyte Esterase Negative (Negative) Acetone, Qual (Negative) 06/20/17 Range/Units 16:22 WBC (3.8-10.6) k/uL RBC (4.30-5.90) m/uL Hgb (13.0-17.5) gm/dL Hct (39.0-53.0) % MCV (80.0-100.0) fL MCH (25.0-35.0) pg MCHC (31.0-37.0) g/dL RDW (11.5-15.5) % Plt Count (150-450) k/uL Neutrophils % % Lymphocytes % % Monocytes % % Eosinophils % % Basophils % % Neutrophils # (1.3-7.7) k/uL Lymphocytes # (1.0-4.8) k/uL Monocytes # (0-1.0) k/uL Eosinophils # (0-0.7) k/uL Basophils # (0-0.2) k/uL Sodium (137-145) mmol/L Potassium (3.5-5.1) mmol/L Chloride (98-107) mmol/L Carbon Dioxide (22-30) mmol/L Anion Gap mmol/L BUN (9-20) mg/dL Creatinine (0.66-1.25) mg/dL Est GFR (MDRD) Af Amer (>60 ml/min/1.73 sqM) Est GFR (MDRD) Non-Af (>60 ml/min/1.73 sqM) Glucose (74-99) mg/dL POC Glucose (mg/dL) 261 H (75-99) mg/dL POC Glu Transformation Consultant ID Erika Morrell Calcium (8.4-10.2) mg/dL Total Bilirubin (0.2-1.3) mg/dL AST (17-59) U/L ALT (21-72) U/L Alkaline Phosphatase (38-126) U/L Total Protein (6.3-8.2) g/dL Albumin (3.5-5.0) g/dL Amylase (30-110) U/L Lipase (23-300) U/L Urine Color Urine Appearance (Clear) Urine pH (5.0-8.0) Ur Specific [place] (1.001-1.035) Urine Protein (Negative) Urine Glucose (UA) (Negative) Urine Ketones (Negative) Urine Blood (Negative) Urine Nitrite (Negative) Urine Bilirubin (Negative) Urine Urobilinogen (<2.0) mg/dL Ur Leukocyte Esterase (Negative) Acetone, Qual (Negative) Disposition Clinical Impression: Diarrhea, Hyperglycemia Disposition: HOME SELF-CARE Condition: Stable Instructions: Acute Diarrhea (ED) Additional Instructions: Please return to the Emergency Department if symptoms worsen or any other concerns. Prescriptions: Insulin Aspart [NovoLOG] See Protocol SQ AC-TID #1 vial Insulin Glargine [Lantus] 30 unit SQ DAILY #1 vial Referrals: Rubén Puente MD [Primary Care Provider] - 1-2 days Time of Disposition: 16:26
[2017-06-20 14:16] LABS: Basophils % (A) 0 %; Eosinophils # (A) 0.2 k/uL (0-0.7); Eosinophils % (A) 3 %; HCT 44.1 % (39.0-53.0); HGB 14.4 gm/dL (13.0-17.5); Lymphocytes # (A) 1.3 k/uL (1.0-4.8); Lymphocytes % (A) 22 %; MCH 31.5 pg (25.0-35.0); MCHC 32.7 g/dL (31.0-37.0); MCV 96.2 fL (80.0-100.0); Mean Platelet Volume 8.1; Monocytes # (A) 0.3 k/uL (0-1.0); Monocytes % (A) 4 %; Neutrophils # (A) 4.1 k/uL (1.3-7.7); Neutrophils % (A) 70 %; Platelet Count 238 k/uL (150-450); RBC 4.58 m/uL (4.30-5.90); RDW 12.9 % (11.5-15.5); WBC 5.9 k/uL (3.8-10.6)
[2017-06-20 14:17] LABS: Glucose,Whole Blood >600 mg/dL (75-99)
[2017-06-20] MEDS ORDERED: SODIUM CHLORIDE 0.9% 1,000 ML IV ONE ×2 (14:18→15:10)
[2017-06-20] MEDS ORDERED: INSULIN REGULAR 100 UNIT/ML VIAL IV ONE (14:18)
[2017-06-20 14:31] LABS: ALT 44 U/L (21-72); AST 25 U/L (17-59); Albumin 3.6 g/dL (3.5-5.0); Alkaline Phosphatase 144 U/L (38-126); Amylase 51 U/L (30-110); Anion Gap 9 mmol/L; Blood Urea Nitrogen 20 mg/dL (9-20); Calcium 9.4 mg/dL (8.4-10.2); Carbon Dioxide 26 mmol/L (22-30); Chloride 95 mmol/L (98-107); Lipase 54 U/L (23-300); Sodium 130 mmol/L (137-145); Total Bilirubin 0.6 mg/dL (0.2-1.3)
[2017-06-20 14:40] LABS: Appearance,Urine Clear (Clear); Bilirubin,Urine Negative (Negative); Blood,Urine Negative (Negative); Color,Urine Colorless; Glucose,Urine (UA) 4+ (Negative); Ketones,Urine Negative (Negative); Leukocyte Esterase,Urine Negative (Negative); Nitrite,Urine Negative (Negative); Protein,Urine Negative (Negative); Specific Gravity,Urine 1.023 (1.001-1.035); Urobilinogen,Urine <2.0 mg/dL (<2.0)
[2017-06-20] MEDS ORDERED: SULFAMETHOX-TMP 800-160MG 1 EACH TAB PO STA (14:44)
[2017-06-20 14:49] LABS: Glucose 678 mg/dL (74-99)
[2017-06-20 15:04] LABS: Glucose,Whole Blood 418 mg/dL (75-99)
[2017-06-20] MEDS ORDERED: INSULIN ASPART 100 UNIT/ML 1 ML 10 ML VIAL SQ ONE ×2 (15:10→15:35)
[2017-06-20 15:29] VITALS: RESP 19
[2017-06-20 16:25] LABS: Glucose,Whole Blood 261 mg/dL (75-99)
[2017-06-20 16:28] VITALS: BP 137/88; PULSE 66; TEMP 98
== END 2017-06-20 16:40 | disposition home or self-care (01) ==
LOC: EC 12:39
DX: R19.7 Diarrhea, unspecified (principal); E11.65 Type 2 diabetes mellitus with hyperglycemia; F17.200 Nicotine dependence, unspecified, uncomplicated
CPT/HCPCS: 36415; 80053; 81003; 82009; 82150; 83690; 85025; 96360; 96361; 99284

== ENCOUNTER 2018-03-11 07:15 | Emergency (ER) | payer OTHER ==
[2018-03-11 07:29] VITALS: TEMP 98.3
--- NOTE | 2018-03-11 07:50 | ED ---
Extremity Problem HPI - General Chief complaint: Extremity Problem,Nontraumatic Stated complaint: Male Time Seen by Provider: 03/11/18 07:33 Source: patient, RN notes reviewed, old records reviewed Mode of arrival: ambulatory Limitations: no limitations - History of Present Illness Initial comments: 42-year-old male presents with chief complaint of 2 days of lower extremity swelling. Patient reports that today after working penile swelling. Patient reports that he's had no dysuria or hematuria. He states he's had no trauma to the area. He recently was discharged from residential one week ago. Patient has had recent intercourse with his girlfriend. He states that he does not any abnormal penile discharge as well. He states that he has had no fevers or chills. Denies any chest pain or shortness of breath. He is a diabetic. - Related Data Home Medications Medication Instructions Recorded Confirmed Insulin Aspart [NovoLOG] See Protocol SQ AC-TID 03/11/18 03/11/18 Insulin Glargine [Lantus] 30 unit SQ HS@1800 03/11/18 03/11/18 Previous Rx's Medication Instructions Recorded Sulfamethox-Tmp 800-160Mg [Bactrim 1 tab PO Q12HR #10 tab 03/11/18 DS 800-160 mg] Allergies Allergy/AdvReac Type Severity Reaction Status Date / Time No Known Allergies Allergy Verified 03/11/18 07:58 Review of Systems ROS Statement: Those systems with pertinent positive or pertinent negative responses have been documented in the HPI. ROS Other: All systems not noted in ROS Statement are negative. Past Medical History Past Medical History: Diabetes Mellitus, Hypertension History of Any Multi-Drug Resistant Organisms: None Reported Past Surgical History: No Surgical Hx Reported Additional Past Surgical History / Comment(s): nephrotic syndrome repair as a child Past Psychological History: No Psychological Hx Reported Smoking Status: Former smoker Past Alcohol Use History: None Reported Past Drug Use History: None Reported General Exam - General Exam Comments Initial Comments: 42-year-old male. Alert and oriented. No significant distress. Limitations: no limitations General appearance: alert, in no apparent distress Head exam: Present: atraumatic, normocephalic, normal inspection Eye exam: Present: normal appearance, PERRL, EOMI. Absent: scleral icterus, conjunctival injection, periorbital swelling ENT exam: Present: normal exam, mucous membranes moist Neck exam: Present: normal inspection. Absent: tenderness, meningismus, lymphadenopathy Respiratory exam: Present: normal lung sounds bilaterally. Absent: respiratory distress, wheezes, rales, rhonchi, stridor Cardiovascular Exam: Present: regular rate, normal rhythm, normal heart sounds. Absent: systolic murmur, diastolic murmur, rubs, gallop, clicks exam: Present: other (Penile swelling.). Absent: normal inspection, testicular tenderness, urethral discharge, scrotal swelling, vertical testicular lie, circumcision Extremities exam: Present: normal inspection, full ROM, normal capillary refill , other (Evidence of 1+ pedal edema bilaterally.). Absent: tenderness, pedal edema, joint swelling, calf tenderness Back exam: Present: normal inspection Neurological exam: Present: alert, oriented X3, CN II-XII intact Psychiatric exam: Present: normal affect, normal mood Skin exam: Present: warm, dry, intact, normal color. Absent: rash Course Vital Signs 03/11/18 07:24 Temperature 98.3 F Pulse Rate 83 Respiratory 18 Rate Blood Pressure 168/81 O2 Sat by Pulse 99 Oximetry Medical Decision Making - Medical Decision Making Patient is a 42-year-old male presents emergency Department with bilateral edema lower extremities as well as penile edema. He recently was discharged from residential. He states that he has been having intercourse with his girlfriend. Urinalysis today does show some signs of infection with white blood cells and red blood cells. He does have significant penile edema. No evidence of return. No scrotal tenderness or swelling. No evidence of penile discharge. At this time urinalysis does show 4+ protein. I did discuss the possibility of nephrotic syndrome with the Patient. We did check his kidney function and that was within normal limits. Blood sugar is well-controlled at 144. Patient at this time will be treated with Rocephin and azithromycin emergency apartment. We'll discharge the Patient with outpatient prescription for Cipro to cover for other etiology for urine. Urine culture and Chlamydia and gonorrhea testing are pending. I discussed that he needs to have a low sodium diet and have close follow-up with his primary care physician within the week. Patient agrees to treatment plan will comply. Return parameters were discussed. - Lab Data Result diagrams: 03/11/18 07:50 03/11/18 07:50 Lab Results 1003/11/18 03/11/18 Range/Units 07:50 07:50 07:50 WBC 6.5 (3.8-10.6) k/uL RBC 3.84 L (4.30-5.90) m/uL Hgb 12.3 L (13.0-17.5) gm/dL Hct 35.9 L (39.0-53.0) % MCV 93.5 (80.0-100.0) fL MCH 32.1 (25.0-35.0) pg MCHC 34.3 (31.0-37.0) g/dL RDW 12.0 (11.5-15.5) % Plt Count 233 (150-450) k/uL Neutrophils % 77 % Lymphocytes % 16 % Monocytes % 5 % Eosinophils % 2 % Basophils % 0 % Neutrophils # 5.0 (1.3-7.7) k/uL Lymphocytes # 1.0 (1.0-4.8) k/uL Monocytes # 0.3 (0-1.0) k/uL Eosinophils # 0.1 (0-0.7) k/uL Basophils # 0.0 (0-0.2) k/uL Sodium 140 (137-145) mmol/L Potassium 4.1 (3.5-5.1) mmol/L Chloride 108 H (98-107) mmol/L Carbon Dioxide 28 (22-30) mmol/L Anion Gap 4 mmol/L BUN 16 (9-20) mg/dL Creatinine 0.86 (0.66-1.25) mg/dL Est GFR (CKD-EPI)AfAm >90 (>60 ml/min/1.73 sqM) Est GFR (CKD-EPI)NonAf >90 (>60 ml/min/1.73 sqM) Glucose 144 H (74-99) mg/dL Calcium 8.4 (8.4-10.2) mg/dL Urine Color Yellow Urine Appearance Clear (Clear) Urine pH 6.5 (5.0-8.0) Ur Specific [place] 1.028 (1.001-1.035) Urine Protein 4+ H (Negative) Urine Glucose (UA) 1+ H (Negative) Urine Ketones Negative (Negative) Urine Blood Moderate H (Negative) Urine Nitrite Negative (Negative) Urine Bilirubin Negative (Negative) Urine Urobilinogen <2.0 (<2.0) mg/dL Ur Leukocyte Esterase Small H (Negative) Urine RBC 6 H (0-5) /hpf Urine WBC 30 H (0-5) /hpf Ur Squamous Epith Cells 1 (0-4) /hpf Hyaline Casts 4 H (0-2) /lpf Urine Mucus Few H (None) /hpf Disposition Clinical Impression: Proteinuria, Urinary tract infection in male Disposition: HOME SELF-CARE Condition: Good Instructions: Urinary Tract Infection in Men (ED), Chronic Kidney Disease Diet (DC) Additional Instructions: Patient has follow up with primary care physician. Follow-up with the next 1- 2 days. Take antibiotic as prescribed. Rest, and elevate her legs. Patient should avoid salt in your diet. Return to the emergency department if any alarming signs or symptoms occur. Prescriptions: Sulfamethox-Tmp 800-160Mg [Bactrim DS 800-160 mg] 1 tab PO Q12HR #10 tab Is patient prescribed a controlled substance at d/c from ED?: No Referrals: Rubén Puente MD [Primary Care Provider] - 1-2 days Time of Disposition: 08:32
[2018-03-11 08:12] LABS: Basophils % (A) 0 %; Eosinophils # (A) 0.1 k/uL (0-0.7); Eosinophils % (A) 2 %; HCT 35.9 % (39.0-53.0); HGB 12.3 gm/dL (13.0-17.5); Lymphocytes % (A) 16 %; MCH 32.1 pg (25.0-35.0); MCHC 34.3 g/dL (31.0-37.0); MCV 93.5 fL (80.0-100.0); Mean Platelet Volume 7.2; Monocytes # (A) 0.3 k/uL (0-1.0); Monocytes % (A) 5 %; Neutrophils % (A) 77 %; Platelet Count 233 k/uL (150-450); RBC 3.84 m/uL (4.30-5.90); WBC 6.5 k/uL (3.8-10.6)
[2018-03-11 08:20] LABS: Anion Gap 4 mmol/L; Appearance,Urine Clear (Clear); Bilirubin,Urine Negative (Negative); Blood Urea Nitrogen 16 mg/dL (9-20); Blood,Urine Moderate (Negative); Calcium 8.4 mg/dL (8.4-10.2); Carbon Dioxide 28 mmol/L (22-30); Chloride 108 mmol/L (98-107); Color,Urine Yellow; Glucose 144 mg/dL (74-99); Glucose,Urine (UA) 1+ (Negative); Hyaline Casts,Urine 4 /lpf (0-2); Ketones,Urine Negative (Negative); Leukocyte Esterase,Urine Small (Negative); Mucus,Urine Few /hpf; Nitrite,Urine Negative (Negative); PH, Urine 6.5 (5.0-8.0); Potassium 4.1 mmol/L (3.5-5.1); Protein,Urine 4+ (Negative); RBC,Urine 6 /hpf (0-5); Sodium 140 mmol/L (137-145); Specific Gravity,Urine 1.028 (1.001-1.035); Squamous Epithelial Cell,Urine 1 /hpf (0-4); Urobilinogen,Urine <2.0 mg/dL (<2.0); WBC,Urine 30 /hpf (0-5)
[2018-03-11] MEDS ORDERED: AZITHROMYCIN 500 MG TAB PO STA (08:30)
[2018-03-11] MEDS ORDERED: cefTRIAXone 250 MG VIAL IM STA (08:30)
[2018-03-11] MEDS ORDERED: LIDOCAINE 1% INJ 10MG/ML (20 ML MDV) SQ ONE (09:03)
[2018-03-11 09:26] VITALS: BP 161/93; PULSE 77; RESP 16
[2018-03-12 15:06] LABS: C. trachomatis,PCR Negative (Neg,Equiv); Chlamydia trachomatis Source Urine
[2018-03-12 15:08] LABS: N. gonorrhoeae,PCR Negative (Neg,Equiv); Neisseria Source Urine
== END 2018-03-11 09:24 | disposition home or self-care (01) ==
LOC: EC 07:15
DX: N39.0 Urinary tract infection, site not specified (principal); R80.9 Proteinuria, unspecified; M79.89 Other specified soft tissue disorders; N48.89 Other specified disorders of penis; E11.9 Type 2 diabetes mellitus without complications; Z87.891 Personal history of nicotine dependence; Z79.4 Long term (current) use of insulin
CPT/HCPCS: 36415; 83880; 80048; 85025; 81001; 87491; 87591; 87086; 99284; 96372; J2001; J0696

== ENCOUNTER → 2018-04-07 | Outpatient (CLI) | payer OTHER ==
[2018-04-07 12:59] LABS: Basophils % (A) 0 %; Eosinophils % (A) 1 %; HCT 39.7 % (39.0-53.0); HGB 13.4 gm/dL (13.0-17.5); Lymphocytes # (A) 1.4 k/uL (1.0-4.8); Lymphocytes % (A) 27 %; MCH 31.7 pg (25.0-35.0); MCHC 33.9 g/dL (31.0-37.0); MCV 93.6 fL (80.0-100.0); Monocytes # (A) 0.2 k/uL (0-1.0); Monocytes % (A) 4 %; Neutrophils # (A) 3.4 k/uL (1.3-7.7); Neutrophils % (A) 66 %; Platelet Count 238 k/uL (150-450); RBC 4.24 m/uL (4.30-5.90); RDW 12.1 % (11.5-15.5); Reticulocyte % 2.2 % (0.5-2.0); WBC 5.1 k/uL (3.8-10.6)
== END ==
LOC: LABWHC1 12:20
PROVIDERS: ATTEND Family Medicine
DX: M25.50 Pain in unspecified joint (principal)
CPT/HCPCS: 36415; 83540; 83550; 85025; 85045; 85660

== ENCOUNTER 2018-07-27 22:45 | Emergency (ER) | payer OTHER ==
[2018-07-27 22:51] VITALS: TEMP 97.9
[2018-07-27] MEDS ORDERED: CYCLOBENZAPRINE 10 MG TAB PO STA (23:24)
[2018-07-27] MEDS ORDERED: KETOROLAC 30 MG/ML 1 ML VIAL IM STA (23:24)
[2018-07-27] MEDS: HYDROcodone/APAP 5-325MG 1 EACH TAB PO STA ×2 (23:33→23:34)
--- NOTE | 2018-07-28 00:05 | XR ---
History: ITS.REASON XR Reason: Pain Exam: XR L SPINE 5 images Comparison: 05/08/2015 FINDINGS: No evidence of acute fracture or malalignment. The disc spaces appear within limits. Straightening again noted may represent positioning or spasm. IMPRESSION: No evidence of acute fracture or malalignment. Straightening again noted may represent positioning or spasm.
[2018-07-28 00:31] LABS: Appearance,Urine Clear (Clear); Bilirubin,Urine Negative (Negative); Blood,Urine Trace (Negative); Color,Urine Light Yellow; Glucose,Urine (UA) 4+ (Negative); Granular Casts,Urine 11 /lpf (0); Hyaline Casts,Urine 1 /lpf (0-2); Ketones,Urine Negative (Negative); Leukocyte Esterase,Urine Negative (Negative); Nitrite,Urine Negative (Negative); Protein,Urine 2+ (Negative); RBC,Urine 3 /hpf (0-5); Specific Gravity,Urine 1.028 (1.001-1.035); Urobilinogen,Urine <2.0 mg/dL (<2.0); WBC,Urine 1 /hpf (0-5)
--- NOTE | 2018-07-28 00:33 | ED ---
Back Pain HPI - General Source: patient Limitations: no limitations <Alva Bettencourt - Last Filed: 07/28/18 01:36> <Julieth Pina - Last Filed: 07/28/18 02:44> - General Chief Complaint: Back Pain/Injury Stated Complaint: FALL,BACK PAIN Time Seen by Provider: 07/27/18 22:57 - History of Present Illness Initial Comments: 43-year-old male patient presents to the emergency department today for evaluation of right low back pain after a slip and fall accident yesterday. Patient states he is walking and slipped on ice and fell landing on the right low back. Patient states his been having significant pain to the area since. Denies any radiation of the pain down his legs. Denies any loss of bowel or bladder control. Denies any saddle anesthesia. Denies any numbness or tingling to the lower extremities. Denies any history of low back pain. Patient states he is unable to go to work tonight due to the pain. States he did take Advil Profen earlier in the day but it didn't seem to help. He denies hitting his head or losing consciousness during the fall. Denies any other injuries. Patient denies any headache, neck pain, chest pain, shortness of breath, dizziness, weakness, abdominal pain, nausea, vomiting, or difficulties with bowel movements or urination. (Alva Bettencourt) - Related Data Home Medications Medication Instructions Recorded Confirmed INSULIN ASPART (NovoLOG) [NovoLOG] See Protocol SQ AC-TID 03/11/18 07/27/18 Insulin Glargine [Lantus] 30 unit SQ HS@1800 03/11/18 07/27/18 Previous Rx's Medication Instructions Recorded Cyclobenzaprine [Flexeril] 10 mg PO TID #15 tab 07/28/18 Ibuprofen [Motrin] 600 mg PO Q8HR PRN #30 tab 07/28/18 Allergies Allergy/AdvReac Type Severity Reaction Status Date / Time No Known Allergies Allergy Verified 07/27/18 22:58 Review of Systems ROS Other: All systems not noted in ROS Statement are negative. <Alva Bettencourt - Last Filed: 07/28/18 01:36> ROS Other: All systems not noted in ROS Statement are negative. <Julieth Pina - Last Filed: 07/28/18 02:44> ROS Statement: Those systems with pertinent positive or pertinent negative responses have been documented in the HPI. Past Medical History Past Medical History: Diabetes Mellitus, Hypertension History of Any Multi-Drug Resistant Organisms: None Reported Past Surgical History: No Surgical Hx Reported Additional Past Surgical History / Comment(s): nephrotic syndrome repair as a child Past Psychological History: No Psychological Hx Reported Smoking Status: Current every day smoker Past Alcohol Use History: None Reported Past Drug Use History: None Reported <Alva Bettencourt M - Last Filed: 07/28/18 01:36> General Exam Limitations: no limitations General appearance: alert, in no apparent distress, other (Physical well- developed, well-nourished adult male patient in no acute distress. Vital signs upon presentation are temperature 97.9F, pulse 74, respirations 18, blood pressure 159/97, pulse ox 99% on room air.) Eye exam: Present: normal appearance, PERRL, EOMI. Absent: scleral icterus, conjunctival injection, periorbital swelling ENT exam: Present: normal exam, normal oropharynx, mucous membranes moist Respiratory exam: Present: normal lung sounds bilaterally. Absent: respiratory distress, wheezes, rales, rhonchi, stridor Cardiovascular Exam: Present: regular rate, normal rhythm, normal heart sounds. Absent: systolic murmur, diastolic murmur, rubs, gallop, clicks GI/Abdominal exam: Present: soft, normal bowel sounds. Absent: distended, tenderness, guarding, rebound, rigid Extremities exam: Present: normal inspection, full ROM, normal capillary refill , other (Skin to the lower extremities is normal for ethnicity, warm, dry. Cap refills less than 3 seconds. Pedal pulses 2+ and equal bilaterally.). Absent: tenderness, pedal edema, joint swelling, calf tenderness Back exam: Present: normal inspection, tenderness (Right low back tenderness). Absent: vertebral tenderness Neurological exam: Present: alert, oriented X3, CN II-XII intact, other ( Strength in lower extremities is 5/5.) Psychiatric exam: Present: normal affect, normal mood Skin exam: Present: warm, dry, intact, normal color. Absent: rash <Alva Bettencourt M - Last Filed: 07/28/18 01:36> Vital Signs 07/27/18 07/28/18 22:48 01:24 Temperature 97.9 F Pulse Rate 74 68 Respiratory 18 16 Rate Blood Pressure 159/97 142/92 O2 Sat by Pulse 99 100 Oximetry Medical Decision Making - Radiology Data Radiology results: report reviewed, image reviewed <Alva Bettencourt - Last Filed: 07/28/18 01:36> <Julieth Pina - Last Filed: 07/28/18 02:44> - Medical Decision Making 43-year-old male patient presented to the emergency department today for evaluation of acute right lower back pain after experiencing a slip and fall accident last evening. Physical examination did reveal some right lower back tenderness. Urinalysis showed no evidence for blood. Patient is neurologically intact with no focal deficits. No concerning symptoms for cauda equina. We will treat for contusion and muscle spasm. He is instructed to follow-up with his primary care physician for recheck in 1-2 days. Return parameters discussed in detail. He verbalizes understanding and agrees with this plan. (Alva Bettencourt) I was available for consultation in the emergency department. The history and physical exam were done by the midlevel provider. I was consulted for this patient's care. I reviewed the case with the midlevel provider and based on their presentation of the patient, I agree with the assessment, medical decision making and plan of care as documented. (Julieth Pina) - Lab Data Lab Results 07/28/18 Range/Units 00:22 Urine Color Light Yellow Urine Appearance Clear (Clear) Urine pH 6.0 (5.0-8.0) Ur Specific [place] 1.028 (1.001-1.035) Urine Protein 2+ H (Negative) Urine Glucose (UA) 4+ H (Negative) Urine Ketones Negative (Negative) Urine Blood Trace H (Negative) Urine Nitrite Negative (Negative) Urine Bilirubin Negative (Negative) Urine Urobilinogen <2.0 (<2.0) mg/dL Ur Leukocyte Esterase Negative (Negative) Urine RBC 3 (0-5) /hpf Urine WBC 1 (0-5) /hpf Hyaline Casts 1 (0-2) /lpf Granular Casts 11 (0) /lpf - Radiology Data 5 views of the lumbosacral spine were obtained. Report was reviewed in its entirety. Impression by Dr. Colon shows no evidence of acute fracture or malalignment. Shaking again noted may represent positioning or spasm. (Alva Bettencourt) Disposition Is patient prescribed a controlled substance at d/c from ED?: No Time of Disposition: 00:48 <Alva Bettencourt - Last Filed: 07/28/18 01:36> <Julieth Pina - Last Filed: 07/28/18 02:44> Clinical Impression: Acute low back pain Disposition: HOME SELF-CARE Condition: Good Instructions (If sedation given, give patient instructions): Acute Low Back Pain (ED) Additional Instructions: Take medications as directed. Apply ice to the low back for the first 24 hours and alternate with heat. Perform gentle range of motion exercises. Follow-up with the primary care physician for recheck in 1-2 days. Return to the emergency department immediately for any new, worsening, or concerning symptoms. Prescriptions: Cyclobenzaprine [Flexeril] 10 mg PO TID #15 tab Ibuprofen [Motrin] 600 mg PO Q8HR PRN #30 tab PRN Reason: Pain Referrals: Rubén Puente MD [Primary Care Provider] - 1-2 days
[2018-07-28] MEDS ORDERED: ACET/COD 300 MG/30 MG STARTER PACK 6 TAB BTL PO STA (00:48)
[2018-07-28 01:25] VITALS: BP 142/92; PULSE 68; RESP 16
== END 2018-07-28 01:24 | disposition home or self-care (01) ==
LOC: EC 22:45
DX: M54.5 Low back pain (principal); E11.9 Type 2 diabetes mellitus without complications; F17.200 Nicotine dependence, unspecified, uncomplicated; Z79.4 Long term (current) use of insulin; Z53.20 Procedure and treatment not carried out because of patient's decision for unspecified reasons; W00.0XXA Fall on same level due to ice and snow, initial encounter; Y93.01 Activity, walking, marching and hiking; Y92.89 Other specified places as the place of occurrence of the external cause
CPT/HCPCS: 81001; 72110; 99283; 96372; J1885

== ENCOUNTER 2018-08-12 22:46 | Emergency (ER) | payer OTHER ==
[2018-08-12 22:51] VITALS: BP 135/78; PULSE 64; RESP 17; TEMP 97.7
[2018-08-12] MEDS: LIDOCAINE 1% INJ 10MG/ML (20 ML MDV) SQ ONE ×2 (23:03→23:12)
[2018-08-12] MEDS ORDERED: SULFAMETH-TMP DS STARTER PACK 2 TAB BTL PO STA (23:25)
[2018-08-12] MEDS ORDERED: CEPHALEXIN 500MG STARTER PACK 4 CAP BTL PO STA (23:25)
--- NOTE | 2018-08-12 23:27 | ED ---
General Adult HPI - General Chief complaint: Skin/Abscess/Foreign Body Stated complaint: Rt leg poss abscess Time Seen by Provider: 08/12/18 22:52 Source: patient, RN notes reviewed Mode of arrival: ambulatory Limitations: no limitations - History of Present Illness Initial comments: 43-year-old male presents to the emergency department for a chief of abscess on the right leg. Patient noticed this earlier today. He denies fevers or chills. He states it is very tender to touch. He states he was on his way to work and he did not think he could work with how tender was. Patient has not had similar symptoms in the past. Patient has no other complaints at this time including shortness of breath, chest pain, abdominal pain, nausea or vomiting, headache, or visual changes. - Related Data Home Medications Medication Instructions Recorded Confirmed INSULIN ASPART (NovoLOG) [NovoLOG] See Protocol SQ AC-TID 03/11/18 08/12/18 Insulin Glargine,Hum.rec.anlog 30 unit SQ DAILY 08/12/18 08/12/18 [Basaglar Kwikpen U-100] Previous Rx's Medication Instructions Recorded Cephalexin [Keflex] 500 mg PO Q12HR #20 cap 08/12/18 Sulfamethox-Tmp 800-160Mg [Bactrim 1 tab PO Q12HR #20 tab 08/12/18 DS 800-160 mg] Allergies Allergy/AdvReac Type Severity Reaction Status Date / Time No Known Allergies Allergy Verified 08/12/18 23:01 Review of Systems ROS Statement: Those systems with pertinent positive or pertinent negative responses have been documented in the HPI. ROS Other: All systems not noted in ROS Statement are negative. Past Medical History Past Medical History: Diabetes Mellitus, Hypertension History of Any Multi-Drug Resistant Organisms: None Reported Past Surgical History: No Surgical Hx Reported Additional Past Surgical History / Comment(s): nephrotic syndrome repair as a child, Past Psychological History: No Psychological Hx Reported Smoking Status: Current every day smoker Past Alcohol Use History: None Reported Past Drug Use History: None Reported General Exam Limitations: no limitations General appearance: alert, in no apparent distress Head exam: Present: atraumatic, normocephalic, normal inspection Eye exam: Present: normal appearance, PERRL, EOMI. Absent: scleral icterus, conjunctival injection, periorbital swelling ENT exam: Present: normal exam, mucous membranes moist Neck exam: Present: normal inspection, full ROM. Absent: tenderness, meningismus, lymphadenopathy Respiratory exam: Present: normal lung sounds bilaterally. Absent: respiratory distress, wheezes, rales, rhonchi, stridor Cardiovascular Exam: Present: regular rate, normal rhythm, normal heart sounds. Absent: systolic murmur, diastolic murmur, rubs, gallop, clicks Extremities exam: Present: other (Patient has a 1 cm x 1 cm erythematous abscess noted to the right groin area. This is tender to palpation. Induration present, no fluctuance. ) Neurological exam: Present: alert, oriented X3, CN II-XII intact Psychiatric exam: Present: normal affect, normal mood Course Vital Signs 08/12/18 22:48 Temperature 97.7 F Pulse Rate 64 Respiratory 17 Rate Blood Pressure 135/78 O2 Sat by Pulse 99 Oximetry Medical Decision Making - Medical Decision Making 43-year-old male presents to the emergency determine for chief complaint of abscess in the right groin area. This is been present for one day. Abscess is about 1 cm x 1 cm and indurated in nature. I did put the ultrasound on and do not see significant purulent material at this time. However he did recommend that we try to incise and drain this. Patient adamantly refuses stating "you are not cutting it open." He does agree to return if things worsen but would like to try outpatient antibiotics first. Patient will be given Bactrim and Keflex. She will follow up with primary care in 1-2 days or return here if he has any worsening symptoms. He will watch for the area and knows to return for incision and drainage if this is not getting better. Disposition Clinical Impression: Abscess Disposition: HOME SELF-CARE Condition: Good Instructions (If sedation given, give patient instructions): Abscess (ED) Additional Instructions: Please take antibiotic as directed. Apply warm compresses for 20 minutes every few hours. Follow-up with primary care in 1-2 days. Return here if abscess is worsening. Prescriptions: Cephalexin [Keflex] 500 mg PO Q12HR #20 cap Sulfamethox-Tmp 800-160Mg [Bactrim DS 800-160 mg] 1 tab PO Q12HR #20 tab Is patient prescribed a controlled substance at d/c from ED?: No Referrals: Rubén Puente MD [Primary Care Provider] - 1-2 days Time of Disposition: 23:26
== END 2018-08-12 23:39 | disposition home or self-care (01) ==
LOC: EC 22:46
DX: L02.214 Cutaneous abscess of groin (principal); E11.9 Type 2 diabetes mellitus without complications; F17.200 Nicotine dependence, unspecified, uncomplicated; Z53.29 Procedure and treatment not carried out because of patient's decision for other reasons; Z79.4 Long term (current) use of insulin
CPT/HCPCS: 99283

== ENCOUNTER 2018-09-16 11:27 | Emergency (ER) | payer OTHER ==
[2018-09-16 11:30] VITALS: RESP 18; TEMP 97.7
[2018-09-16] MEDS ORDERED: SODIUM CHLORIDE 0.9% 1,000 ML IV STA (11:59)
[2018-09-16 12:30] LABS: Basophils % (A) 0 %; Eosinophils # (A) 0.2 k/uL (0-0.7); Eosinophils % (A) 3 %; HCT 43.2 % (39.0-53.0); HGB 14.9 gm/dL (13.0-17.5); Lymphocytes # (A) 1.5 k/uL (1.0-4.8); Lymphocytes % (A) 22 %; MCH 31.3 pg (25.0-35.0); MCHC 34.6 g/dL (31.0-37.0); MCV 90.6 fL (80.0-100.0); Mean Platelet Volume 7.4; Monocytes # (A) 0.3 k/uL (0-1.0); Monocytes % (A) 5 %; Neutrophils # (A) 4.9 k/uL (1.3-7.7); Neutrophils % (A) 69 %; Platelet Count 290 k/uL (150-450); RBC 4.77 m/uL (4.30-5.90); RDW 11.8 % (11.5-15.5)
[2018-09-16 12:36] LABS: ALT 34 U/L (21-72); AST 20 U/L (17-59); Albumin 3.7 g/dL (3.5-5.0); Alkaline Phosphatase 103 U/L (38-126); Anion Gap 5 mmol/L; Blood Urea Nitrogen 14 mg/dL (9-20); Calcium 9.4 mg/dL (8.4-10.2); Carbon Dioxide 29 mmol/L (22-30); Chloride 103 mmol/L (98-107); Glucose 226 mg/dL (74-99); Lipase 24 U/L (23-300); Magnesium 1.7 mg/dL (1.6-2.3); Potassium 4.3 mmol/L (3.5-5.1); Sodium 137 mmol/L (137-145); Total Bilirubin 0.4 mg/dL (0.2-1.3); Total Protein 6.5 g/dL (6.3-8.2)
[2018-09-16 12:47] LABS: INR 0.9 (<1.2); Partial Thromboplastin Time 22.5 sec (22.0-30.0); Prothrombin Time 10.1 sec (9.0-12.0)
--- NOTE | 2018-09-16 13:41 | ED ---
GI Bleed HPI - General Chief complaint: GI Bleed Stated complaint: blood in stool/nosebleed Time Seen by Provider: 09/16/18 11:44 Source: patient, RN notes reviewed, old records reviewed Mode of arrival: ambulatory Limitations: no limitations - History of Present Illness Initial comments: This is a 43-year-old male the ER for evaluation presented for evaluation weakness dehydration admits to some blood in his stool. No nausea vomiting no fevers no abdominal pain. He states he occasionally does have right-sided abdominal pain. Patient is recent travel history no known sick contacts. does have diabetes, blood sugars and maintain and control here. No drugs or alcohol abuse. Does not feel lightheaded dizzy weak does not feel using pass o ut. No prior history of GI bleed, no prior history of colonoscopy MD complaint: blood streaked stool -: days(s) Radiation: none Quality: painless Consistency: intermittent, now resolved Improves with: none Worsens with: bowel movement Associated Symptoms: denies other symptoms - Related Data Home Medications Medication Instructions Recorded Confirmed Insulin Glargine,Hum.rec.anlog 30 unit SQ DAILY 08/12/18 09/16/18 [Basaglar Kwikpen U-100] Furosemide [Lasix] 40 mg PO DAILY 09/16/18 09/16/18 Insulin Lispro [Admelog] 10 unit SQ TID 09/16/18 09/16/18 Lisinopril [Prinivil] 10 mg PO DAILY 09/16/18 09/16/18 Allergies Allergy/AdvReac Type Severity Reaction Status Date / Time No Known Allergies Allergy Verified 09/16/18 11:40 Review of Systems ROS Statement: Those systems with pertinent positive or pertinent negative responses have been documented in the HPI. ROS Other: All systems not noted in ROS Statement are negative. Past Medical History Past Medical History: Diabetes Mellitus, Hypertension History of Any Multi-Drug Resistant Organisms: None Reported Past Surgical History: No Surgical Hx Reported Additional Past Surgical History / Comment(s): nephrotic syndrome repair as a child, Past Psychological History: No Psychological Hx Reported Smoking Status: Current every day smoker Past Alcohol Use History: None Reported Past Drug Use History: None Reported General Exam Limitations: no limitations General appearance: alert, in no apparent distress Head exam: Present: atraumatic, normocephalic, normal inspection Eye exam: Present: normal appearance, PERRL, EOMI. Absent: scleral icterus, conjunctival injection, periorbital swelling ENT exam: Present: normal exam, mucous membranes moist Neck exam: Present: normal inspection. Absent: tenderness, meningismus, lymphadenopathy Respiratory exam: Present: normal lung sounds bilaterally. Absent: respiratory distress, wheezes, rales, rhonchi, stridor Cardiovascular Exam: Present: regular rate, normal rhythm, normal heart sounds. Absent: systolic murmur, diastolic murmur, rubs, gallop, clicks GI/Abdominal exam: Present: soft, normal bowel sounds. Absent: distended, tenderness, guarding, rebound, rigid Extremities exam: Present: normal inspection, full ROM, normal capillary refill. Absent: tenderness, pedal edema, joint swelling, calf tenderness Back exam: Present: normal inspection Neurological exam: Present: alert, oriented X3, CN II-XII intact Psychiatric exam: Present: normal affect, normal mood Skin exam: Present: warm, dry, intact, normal color. Absent: rash Course Vital Signs 09/16/18 11:28 Temperature 97.7 F Pulse Rate 78 Respiratory 18 Rate Blood Pressure 144/87 O2 Sat by Pulse 100 Oximetry - Reevaluation(s) Reevaluation #1: 09/16/18 13:57 Medical record reviewed Reevaluation #2: 09/16/18 13:57 Patient's vital signs and maintained stable, no blood in stool here in the ER Medical Decision Making - Medical Decision Making 43 male the ER for evaluation of GI bleed weakness dehydration, patient hydrated feeling better, reassured regarding GI bleed and can be discharged home - Lab Data Result diagrams: 09/16/18 12:00 09/16/18 12:00 Lab Results 09/16/18 09/16/18 09/16/18 Range/Units 12:00 12:00 12:00 WBC 7.0 (3.8-10.6) k/uL RBC 4.77 (4.30-5.90) m/uL Hgb 14.9 (13.0-17.5) gm/dL Hct 43.2 (39.0-53.0) % MCV 90.6 (80.0-100.0) fL MCH 31.3 (25.0-35.0) pg MCHC 34.6 (31.0-37.0) g/dL RDW 11.8 (11.5-15.5) % Plt Count 290 (150-450) k/uL Neutrophils % 69 % Lymphocytes % 22 % Monocytes % 5 % Eosinophils % 3 % Basophils % 0 % Neutrophils # 4.9 (1.3-7.7) k/uL Lymphocytes # 1.5 (1.0-4.8) k/uL Monocytes # 0.3 (0-1.0) k/uL Eosinophils # 0.2 (0-0.7) k/uL Basophils # 0.0 (0-0.2) k/uL PT 10.1 (9.0-12.0) sec INR 0.9 (<1.2) APTT 22.5 (22.0-30.0) sec Sodium 137 (137-145) mmol/L Potassium 4.3 (3.5-5.1) mmol/L Chloride 103 (98-107) mmol/L Carbon Dioxide 29 (22-30) mmol/L Anion Gap 5 mmol/L BUN 14 (9-20) mg/dL Creatinine 0.86 (0.66-1.25) mg/dL Est GFR (CKD-EPI)AfAm >90 (>60 ml/min/1.73 sqM) Est GFR (CKD-EPI)NonAf >90 (>60 ml/min/1.73 sqM) Glucose 226 H (74-99) mg/dL Calcium 9.4 (8.4-10.2) mg/dL Magnesium 1.7 (1.6-2.3) mg/dL Total Bilirubin 0.4 (0.2-1.3) mg/dL AST 20 (17-59) U/L ALT 34 (21-72) U/L Alkaline Phosphatase 103 (38-126) U/L Troponin I (0.000-0.034) ng/mL Total Protein 6.5 (6.3-8.2) g/dL Albumin 3.7 (3.5-5.0) g/dL Lipase 24 (23-300) U/L Blood Type Blood Type Confirm Blood Type Recheck Antibody Screen Spec Expiration Date 09/16/18 09/16/18 09/16/18 Range/Units 12:00 12:01 13:00 WBC (3.8-10.6) k/uL RBC (4.30-5.90) m/uL Hgb (13.0-17.5) gm/dL Hct (39.0-53.0) % MCV (80.0-100.0) fL MCH (25.0-35.0) pg MCHC (31.0-37.0) g/dL RDW (11.5-15.5) % Plt Count (150-450) k/uL Neutrophils % % Lymphocytes % % Monocytes % % Eosinophils % % Basophils % % Neutrophils # (1.3-7.7) k/uL Lymphocytes # (1.0-4.8) k/uL Monocytes # (0-1.0) k/uL Eosinophils # (0-0.7) k/uL Basophils # (0-0.2) k/uL PT (9.0-12.0) sec INR (<1.2) APTT (22.0-30.0) sec Sodium (137-145) mmol/L Potassium (3.5-5.1) mmol/L Chloride (98-107) mmol/L Carbon Dioxide (22-30) mmol/L Anion Gap mmol/L BUN (9-20) mg/dL Creatinine (0.66-1.25) mg/dL Est GFR (CKD-EPI)AfAm (>60 ml/min/1.73 sqM) Est GFR (CKD-EPI)NonAf (>60 ml/min/1.73 sqM) Glucose (74-99) mg/dL Calcium (8.4-10.2) mg/dL Magnesium (1.6-2.3) mg/dL Total Bilirubin (0.2-1.3) mg/dL AST (17-59) U/L ALT (21-72) U/L Alkaline Phosphatase (38-126) U/L Troponin I <0.012 (0.000-0.034) ng/mL Total Protein (6.3-8.2) g/dL Albumin (3.5-5.0) g/dL Lipase (23-300) U/L Blood Type B Positive Blood Type Confirm B Positive Blood Type Recheck CABO Indicated Antibody Screen NEGATIVE Spec Expiration Date 09/19/2018 - 2300 Disposition Clinical Impression: Gastrointestinal hemorrhage, Dehydration Disposition: HOME SELF-CARE Condition: Good Instructions (If sedation given, give patient instructions): Gastrointestinal Bleeding (ED) Is patient prescribed a controlled substance at d/c from ED?: No Referrals: Rubén Puente MD [Primary Care Provider] - 1-2 days
[2018-09-16 15:12] VITALS: BP 143/95; PULSE 75
== END 2018-09-16 15:10 | disposition home or self-care (01) ==
LOC: EC 11:27
DX: E86.0 Dehydration (principal); K92.1 Melena; R53.1 Weakness; R10.9 Unspecified abdominal pain; E11.9 Type 2 diabetes mellitus without complications; I10 Essential (primary) hypertension; F17.200 Nicotine dependence, unspecified, uncomplicated; Z79.4 Long term (current) use of insulin; Z79.899 Other long term (current) drug therapy
CPT/HCPCS: 36415; 80053; 83690; 83735; 84484; 85025; 85610; 85730; 86850; 86900; 86901; 96360; 99285

== ENCOUNTER 2018-10-03 23:56 | Emergency (ER) | payer OTHER ==
[2018-10-04] MEDS ORDERED: hydrALAZINE HCL 20 MG/ML 1 ML VIAL IVP STA (01:02)
[2018-10-04] MEDS ORDERED: SODIUM CHLORIDE 0.9% 1,000 ML IV ONE (01:02)
--- NOTE | 2018-10-04 01:03 | ED ---
Headache HPI - General Chief Complaint: Recheck/Abnormal Lab/Rx Stated Complaint: Hypertension Time Seen by Provider: 10/04/18 00:23 Mode of arrival: ambulatory Limitations: no limitations - History of Present Illness Initial Comments: 43-year-old male with past HISTORY of hypertension and type 1 diabetes presents today for chief complaint of elevated blood pressure. Patient states that he is stressed out at his long-term house, he states he just wants to go home. He states he has been experiencing a dull aching headache for the past few days. Patient states that her headache is migratory denies any sudden onset. Patient denies this being the worse headache of his life. He states he feels this is attributed to stress and thought his blood pressure may be elevated since he has been off his medication for the past month. This prompted patient to presents emergency department for evaluation. Patient has a dizziness, diplopia, visual changes or loss he denies any numbness tingling or loss sensation or muscle weakness of the upper or lower extremities. Patient denies any changes of the facial expressions he denies any chest pain shortness of breath dyspnea on ex ertion or lower extremity swelling. He denies any changes in urination. Patient states he feels fine he would just like a prescription for his blood pressure. Patient states he has been taking his insulin, however is out of glucometer/strips. Remaining review of systems negative. Upon arrival patient blood pressure moderately elevated patient appears wellas acute distress. No obvious focal deficits. - Related Data Home Medications Medication Instructions Recorded Confirmed Insulin Glargine,Hum.rec.anlog 30 unit SQ DAILY 08/12/18 09/16/18 [Basaglar Kwikpen U-100] Furosemide [Lasix] 40 mg PO DAILY 09/16/18 09/16/18 Insulin Lispro [Admelog] 10 unit SQ TID 09/16/18 09/16/18 Lisinopril [Prinivil] 10 mg PO DAILY 09/16/18 09/16/18 Previous Rx's Medication Instructions Recorded Lisinopril [Zestril] 10 mg PO DAILY 30 Days #30 tab 10/04/18 Allergies Allergy/AdvReac Type Severity Reaction Status Date / Time No Known Allergies Allergy Verified 10/04/18 00:20 Review of Systems ROS Statement: Those systems with pertinent positive or pertinent negative responses have been documented in the HPI. ROS Other: All systems not noted in ROS Statement are negative. Past Medical History Past Medical History: Diabetes Mellitus, Hypertension History of Any Multi-Drug Resistant Organisms: None Reported Past Surgical History: No Surgical Hx Reported Additional Past Surgical History / Comment(s): nephrotic syndrome repair as a child, Past Psychological History: No Psychological Hx Reported Smoking Status: Current every day smoker Past Alcohol Use History: None Reported Past Drug Use History: None Reported General Exam - General Exam Comments Initial Comments: General: The patient is awake and alert, in no distress, and does not appear acutely ill. Eye: +3 mm pupils are equal, round and reactive to light, extra-ocular movements are intact. No nystagmus. There is normal conjunctiva bilaterally. No signs of icterus. Ears, nose, mouth and throat: There are moist mucous membranes and no oral lesions. Neck: The neck is supple, there is no tenderness or JVD. Cardiovascular: There is a regular rate and rhythm. No murmur, rub or gallop is appreciated. Respiratory: Lungs are clear to auscultation, respirations are non-labored, breath sounds are equal. No wheezes, stridor, rales, or rhonchi. Gastrointestinal: Soft, non-distended, non-tender abdomen without masses or organomegaly noted. There is no rebound or guarding present. No CVA tenderness. Bowel sounds are unremarkable. Musculoskeletal: Normal ROM, no tenderness. Strength 5/5. Sensation intact. Pulses equal bilaterally 2+. Neurological: A&O x 3. CN II-XII intact, memory intact to immediately, intermediate and prison recall. Able to follow simple verbal. Able to name a common object (pen). High quality, labial (pa) and lingual (la) speech. Low quality posterior pharynx/larynx (ga) voice sounds. Able to express general knowledge (days in a week). No hemineglect or inattention noted. Finger agnosia (-) and spatially oriented. Light touch and temperature sensation present over the face, chest, abdomen, back, UE bilaterally, and LE bilaterally. Able to localize point during point localization b/l and extinction. No visible bulk atrophy, hypertrophy, fasciculations, or myoclonus of the UE or LE b/l. Full PROM in UE and LE b/l. Bilateral muscle strength 5/5 for the following muscles: deltoid, biceps, triceps, brachioradialis, wrist extensors/flexor, hip flexor, hip abductors/adductors, hamstrings, quadriceps, feet dorsiflexors/plantar flexors. Finger to nose, finger to the examiners finger, and heel to sesay coordinated and accurate b/l. Coordinated and even demonstration of hand flip, finger to thumb, and toe tap b/l. Gait is coordinated and even in stride with tandem. (-) pronator drift. No nuchal rigidity. Skin: Skin is warm and dry and no rashes or lesions are noted. No LE edema. Psychiatric: Cooperative, appropriate mood & affect, normal judgment. Limitations: no limitations Course Vital Signs 10/04/18 00:16 Temperature 98.3 F Pulse Rate 85 Respiratory 18 Rate Blood Pressure 168/84 O2 Sat by Pulse 99 Oximetry Medical Decision Making - Medical Decision Making Well-appearing 43-year-old male presenting for evaluation of elevated blood pressure medication refill. Blood pressure moderately elevated upon arrival. Patient was provided blood pressure medications. Patient states she is not concerned of the headache he states is mild. Patient states he is more stressed about living in the long-term house. Patient denies any chest pain urinary changes or other symptoms concerning for underlying organ damage. At this time do not suspicion for hypertensive emergency. Patient is no focal deficits on ne urological examination. Patient appears well. Upon reevaluation patient states headache has subsided. Blood glucose unremarkable, acetone negative, no ketones in the urine concerning for DKA. She was given IV fluids. Patient provided prescription for home medication of lisinopril 10 mg daily. I instructed patient to follow-up with primary care provider outpatient for further evaluation and treatment of high blood pressure patient is critical care plan as well as discharge today. Pt requesting discharge. Discussed case with Dr. Aj who i agreeable with patient discharge and care plan today. - Lab Data Result diagrams: 10/04/18 01:05 10/04/18 01:05 Lab Results 10/04/18 10/04/18 10/04/18 Range/Units 01:05 01:05 01:05 WBC 6.4 (3.8-10.6) k/uL RBC 4.26 L (4.30-5.90) m/uL Hgb 13.3 (13.0-17.5) gm/dL Hct 39.6 (39.0-53.0) % MCV 92.8 (80.0-100.0) fL MCH 31.1 (25.0-35.0) pg MCHC 33.5 (31.0-37.0) g/dL RDW 13.1 (11.5-15.5) % Plt Count 254 (150-450) k/uL Neutrophils % 62 % Lymphocytes % 25 % Monocytes % 6 % Eosinophils % 5 % Basophils % 1 % Neutrophils # 4.0 (1.3-7.7) k/uL Lymphocytes # 1.6 (1.0-4.8) k/uL Monocytes # 0.4 (0-1.0) k/uL Eosinophils # 0.3 (0-0.7) k/uL Basophils # 0.0 (0-0.2) k/uL Sodium 138 (137-145) mmol/L Potassium 3.9 (3.5-5.1) mmol/L Chloride 102 (98-107) mmol/L Carbon Dioxide 30 (22-30) mmol/L Anion Gap 6 mmol/L BUN 16 (9-20) mg/dL Creatinine 0.78 (0.66-1.25) mg/dL Est GFR (CKD-EPI)AfAm >90 (>60 ml/min/1.73 sqM) Est GFR (CKD-EPI)NonAf >90 (>60 ml/min/1.73 sqM) Glucose 201 H (74-99) mg/dL Calcium 9.6 (8.4-10.2) mg/dL Total Bilirubin 0.5 (0.2-1.3) mg/dL AST 38 (17-59) U/L ALT 38 (21-72) U/L Alkaline Phosphatase 88 (38-126) U/L Total Protein 6.3 (6.3-8.2) g/dL Albumin 3.7 (3.5-5.0) g/dL Urine Color Yellow Urine Appearance Clear (Clear) Urine pH 6.0 (5.0-8.0) Ur Specific [place] 1.025 (1.001-1.035) Urine Protein 3+ H (Negative) Urine Glucose (UA) 3+ H (Negative) Urine Ketones Negative (Negative) Urine Blood Small H (Negative) Urine Nitrite Negative (Negative) Urine Bilirubin Negative (Negative) Urine Urobilinogen 2.0 (<2.0) mg/dL Ur Leukocyte Esterase Negative (Negative) Urine RBC 2 (0-5) /hpf Urine WBC 2 (0-5) /hpf Hyaline Casts 1 (0-2) /lpf Urine Mucus Rare H (None) /hpf Acetone, Qual Negative (Negative) Disposition Clinical Impression: Elevated blood pressure reading, Headache, Medication refill Disposition: HOME SELF-CARE Condition: Good Instructions (If sedation given, give patient instructions): Acute Headache (ED) Additional Instructions: Please use medication as discussed. Please follow-up with family doctor in the next 2 days. Please return to emergency room if the symptoms increase or worsen or for any other concerns. Prescriptions: Lisinopril [Zestril] 10 mg PO DAILY 30 Days #30 tab Is patient prescribed a controlled substance at d/c from ED?: No Referrals: Rubén Puente MD [Primary Care Provider] - 1-2 days Time of Disposition: 01:50
[2018-10-04 01:21] LABS: Basophils % (A) 1 %; Eosinophils # (A) 0.3 k/uL (0-0.7); Eosinophils % (A) 5 %; HCT 39.6 % (39.0-53.0); HGB 13.3 gm/dL (13.0-17.5); Lymphocytes # (A) 1.6 k/uL (1.0-4.8); Lymphocytes % (A) 25 %; MCH 31.1 pg (25.0-35.0); MCHC 33.5 g/dL (31.0-37.0); MCV 92.8 fL (80.0-100.0); Mean Platelet Volume 7.5; Monocytes # (A) 0.4 k/uL (0-1.0); Monocytes % (A) 6 %; Neutrophils % (A) 62 %; Platelet Count 254 k/uL (150-450); RBC 4.26 m/uL (4.30-5.90); RDW 13.1 % (11.5-15.5); WBC 6.4 k/uL (3.8-10.6)
[2018-10-04 01:26] LABS: Appearance,Urine Clear (Clear); Bilirubin,Urine Negative (Negative); Blood,Urine Small (Negative); Color,Urine Yellow; Glucose,Urine (UA) 3+ (Negative); Hyaline Casts,Urine 1 /lpf (0-2); Ketones,Urine Negative (Negative); Leukocyte Esterase,Urine Negative (Negative); Mucus,Urine Rare /hpf; Nitrite,Urine Negative (Negative); Protein,Urine 3+ (Negative); RBC,Urine 2 /hpf (0-5); Specific Gravity,Urine 1.025 (1.001-1.035); WBC,Urine 2 /hpf (0-5)
[2018-10-04 01:32] LABS: ALT 38 U/L (21-72); AST 38 U/L (17-59); Albumin 3.7 g/dL (3.5-5.0); Alkaline Phosphatase 88 U/L (38-126); Anion Gap 6 mmol/L; Blood Urea Nitrogen 16 mg/dL (9-20); Calcium 9.6 mg/dL (8.4-10.2); Carbon Dioxide 30 mmol/L (22-30); Chloride 102 mmol/L (98-107); Glucose 201 mg/dL (74-99); Potassium 3.9 mmol/L (3.5-5.1); Sodium 138 mmol/L (137-145); Total Bilirubin 0.5 mg/dL (0.2-1.3); Total Protein 6.3 g/dL (6.3-8.2)
[2018-10-04] MEDS ORDERED: cloNIDine HCL 0.1 MG TAB PO STA (02:36)
[2018-10-04 03:21] VITALS: BP 138/79; PULSE 78; RESP 16
[2018-10-04 03:34] VITALS: TEMP 98.2
== END 2018-10-04 03:20 | disposition home or self-care (01) ==
LOC: EC 23:56
DX: I10 Essential (primary) hypertension (principal); R51 Headache; Z76.0 Encounter for issue of repeat prescription; F43.9 Reaction to severe stress, unspecified; E10.9 Type 1 diabetes mellitus without complications; F17.200 Nicotine dependence, unspecified, uncomplicated; Z79.4 Long term (current) use of insulin; Z79.899 Other long term (current) drug therapy
CPT/HCPCS: 36415; 80053; 82009; 85025; 81001; 99283; J0360

== ENCOUNTER 2019-05-28 21:05 | Emergency (ER) | payer OTHER ==
[2019-05-28 21:09] VITALS: TEMP 97.8
--- NOTE | 2019-05-28 21:29 | ED ---
General Adult HPI - General Chief complaint: Extremity Problem,Nontraumatic Stated complaint: Leg swelling and Hypertensive Time Seen by Provider: 05/28/19 21:10 Source: patient, RN notes reviewed, old records reviewed Mode of arrival: ambulatory Limitations: no limitations - History of Present Illness Initial comments: 43-year-old male history of hypertension diabetes presents for evaluation of bilateral lower extremity swelling. Patient has had chronic issues with lower extremity swelling for months to years. He states he was off of his blood pr essure pill for approximately one week and he has had issues with swelling in the lower extremities when his blood pressure has been high in the past. He reinitiated his lisinopril 3 days prior and states that the swelling has improved with elevation and taking his lisinopril. He has history of diabetes he does not regularly check his blood sugar he is on insulin but is unsure of the type of insulin with a dose of insulin. He recently follow-up with his primary care physician for refill of medications. He denies chest pain or dyspnea. States his legs are swollen equally and improved with elevation. chronic issues of both lower extremity edema and hypertension. - Related Data Home Medications Medication Instructions Recorded Confirmed Insulin Glargine,Hum.rec.anlog 30 unit SQ DAILY 08/12/18 09/16/18 [Basaglar Kwikpen U-100] Furosemide [Lasix] 40 mg PO DAILY 09/16/18 09/16/18 Insulin Lispro [Admelog] 10 unit SQ TID 09/16/18 09/16/18 Lisinopril [Prinivil] 10 mg PO DAILY 09/16/18 09/16/18 Previous Rx's Medication Instructions Recorded Lisinopril [Zestril] 10 mg PO DAILY 30 Days #30 tab 10/04/18 Allergies Allergy/AdvReac Type Severity Reaction Status Date / Time No Known Allergies Allergy Verified 05/28/19 21:09 Review of Systems ROS Statement: Those systems with pertinent positive or pertinent negative responses have been documented in the HPI. ROS Other: All systems not noted in ROS Statement are negative. Past Medical History Past Medical History: Diabetes Mellitus, Hyperlipidemia, Hypertension, Renal Disease History of Any Multi-Drug Resistant Organisms: None Reported Past Surgical History: No Surgical Hx Reported Additional Past Surgical History / Comment(s): nephrotic syndrome repair as a child, Past Psychological History: No Psychological Hx Reported Smoking Status: Current every day smoker Past Alcohol Use History: None Reported Past Drug Use History: None Reported General Exam Limitations: no limitations General appearance: alert, in no apparent distress Head exam: Present: atraumatic, normocephalic Eye exam: Present: normal appearance, PERRL ENT exam: Present: normal exam Neck exam: Present: normal inspection. Absent: tenderness, meningismus Respiratory exam: Present: normal lung sounds bilaterally. Absent: respiratory distress, wheezes, rales Cardiovascular Exam: Present: regular rate, normal rhythm GI/Abdominal exam: Present: soft. Absent: distended, tenderness, guarding Extremities exam: Present: pedal edema (1+ B/L) Neurological exam: Present: alert, oriented X3, CN II-XII intact. Absent: motor sensory deficit Psychiatric exam: Present: normal affect, normal mood Skin exam: Present: warm, dry, intact. Absent: cyanosis, diaphoretic Course Vital Signs 05/28/19 05/28/19 21:06 21:58 Temperature 97.8 F Pulse Rate 80 70 Respiratory 20 17 Rate Blood Pressure 157/96 166/104 O2 Sat by Pulse 99 98 Oximetry Medical Decision Making - Medical Decision Making 46-year-old hypertension, diabetes and dependent edema relieved with elevation. Patient has a job where he stands on his feet. He went home after a shot this afternoon and put his feet up, this did improve his symptoms. He was off of his antihypertensive medications for approximately one week he has reinitiated t hese. He seen his primary care physician. Medical records this patient has renal disease he denies any renal disease. He has a creatinine of 1.0 which is normal. He has a BNP of 33. A normal CBC, normal electrolytes. blood sugar is 76. he will continue take his prescribed lisinopril for hypertension. He will elevate his extremities. He will follow-up with his primary care physician. - Lab Data Result diagrams: 05/28/19 21:40 05/28/19 21:40 Lab Results 05/28/19 05/28/19 05/28/19 Range/Units 21:40 21:40 21:40 WBC 6.9 (3.8-10.6) k/uL RBC 3.87 L (4.30-5.90) m/uL Hgb 13.0 (13.0-17.5) gm/dL Hct 36.4 L (39.0-53.0) % MCV 93.9 (80.0-100.0) fL MCH 33.6 (25.0-35.0) pg MCHC 35.7 (31.0-37.0) g/dL RDW 11.9 (11.5-15.5) % Plt Count 267 (150-450) k/uL Neutrophils % 61 % Lymphocytes % 28 % Monocytes % 5 % Eosinophils % 4 % Basophils % 1 % Neutrophils # 4.2 (1.3-7.7) k/uL Lymphocytes # 1.9 (1.0-4.8) k/uL Monocytes # 0.4 (0-1.0) k/uL Eosinophils # 0.3 (0-0.7) k/uL Basophils # 0.1 (0-0.2) k/uL Sodium 137 (137-145) mmol/L Potassium 3.6 (3.5-5.1) mmol/L Chloride 103 (98-107) mmol/L Carbon Dioxide 32 H (22-30) mmol/L Anion Gap 2 mmol/L BUN 14 (9-20) mg/dL Creatinine 1.00 (0.66-1.25) mg/dL Est GFR (CKD-EPI)AfAm >90 (>60 ml/min/1.73 sqM) Est GFR (CKD-EPI)NonAf >90 (>60 ml/min/1.73 sqM) Glucose 76 (74-99) mg/dL Calcium 9.1 (8.4-10.2) mg/dL NT-Pro-B Natriuret Pep 33 pg/mL Disposition Clinical Impression: Dependent edema, Hypertension Disposition: HOME SELF-CARE Condition: Good Instructions (If sedation given, give patient instructions): Hypertension (ED), Leg Edema (ED) Is patient prescribed a controlled substance at d/c from ED?: No Referrals: Rubén Puente MD [Primary Care Provider] - 1-2 days Time of Disposition: 22:27
[2019-05-28 21:59] LABS: Basophils # (A) 0.1 k/uL (0-0.2); Basophils % (A) 1 %; Eosinophils # (A) 0.3 k/uL (0-0.7); Eosinophils % (A) 4 %; HCT 36.4 % (39.0-53.0); Lymphocytes # (A) 1.9 k/uL (1.0-4.8); Lymphocytes % (A) 28 %; MCH 33.6 pg (25.0-35.0); MCHC 35.7 g/dL (31.0-37.0); MCV 93.9 fL (80.0-100.0); Mean Platelet Volume 7.7; Monocytes # (A) 0.4 k/uL (0-1.0); Monocytes % (A) 5 %; Neutrophils # (A) 4.2 k/uL (1.3-7.7); Neutrophils % (A) 61 %; Platelet Count 267 k/uL (150-450); RBC 3.87 m/uL (4.30-5.90); RDW 11.9 % (11.5-15.5); WBC 6.9 k/uL (3.8-10.6)
[2019-05-28 22:08] LABS: African American GFR (CKD) >90 (>60 ml/min/1.73 sqM); Anion Gap 2 mmol/L; Blood Urea Nitrogen 14 mg/dL (9-20); Calcium 9.1 mg/dL (8.4-10.2); Carbon Dioxide 32 mmol/L (22-30); Chloride 103 mmol/L (98-107); Glucose 76 mg/dL (74-99); Non-African American GFR(CKD) >90 (>60 ml/min/1.73 sqM); Potassium 3.6 mmol/L (3.5-5.1); Sodium 137 mmol/L (137-145)
[2019-05-28 22:42] VITALS: BP 157/95; PULSE 66; RESP 16
== END 2019-05-28 22:42 | disposition home or self-care (01) ==
LOC: EC 21:05
DX: I10 Essential (primary) hypertension (principal); R60.0 Localized edema; E11.9 Type 2 diabetes mellitus without complications; F17.200 Nicotine dependence, unspecified, uncomplicated; Z79.4 Long term (current) use of insulin; Z79.899 Other long term (current) drug therapy
CPT/HCPCS: 36415; 80048; 83880; 85025; 93005; 99284

== ENCOUNTER 2019-07-13 09:16 | Emergency (ER) | payer OTHER ==
[2019-07-13 09:32] VITALS: BP 114/72; PULSE 95; RESP 17; TEMP 98.2
--- NOTE | 2019-07-13 09:50 | ED ---
General Adult HPI - General Chief complaint: Upper Respiratory Infection Stated complaint: flu symptoms Time Seen by Provider: 07/13/19 09:30 Source: patient, RN notes reviewed, old records reviewed Mode of arrival: ambulatory Limitations: no limitations - History of Present Illness Initial comments: This is a 44-year-old male who presents emergency Department complaining of a lot of drainage. Patient states he woke up this morning with a sore throat and is a day is gone is gotten slightly better. Patient states he had a dry cough but no sputum production. Patient denies any difficulty breathing shortness of breath. Patient denies any facial tenderness. Patient denies any ear pain. Patient denies any rashes. Patient states his sugars have been well-controlled over the last few days. Patient states the symptoms all started about 2 days ago. - Related Data Home Medications Medication Instructions Recorded Confirmed Insulin Glargine,Hum.rec.anlog 30 unit SQ DAILY 08/12/18 09/16/18 [Basaglar Kwikpen U-100] Furosemide [Lasix] 40 mg PO DAILY 09/16/18 09/16/18 Insulin Lispro [Admelog] 10 unit SQ TID 09/16/18 09/16/18 Lisinopril [Prinivil] 10 mg PO DAILY 09/16/18 09/16/18 Previous Rx's Medication Instructions Recorded Lisinopril [Zestril] 10 mg PO DAILY 30 Days #30 tab 10/04/18 Allergies Allergy/AdvReac Type Severity Reaction Status Date / Time No Known Allergies Allergy Verified 05/28/19 21:09 Review of Systems ROS Statement: Those systems with pertinent positive or pertinent negative responses have been documented in the HPI. ROS Other: All systems not noted in ROS Statement are negative. Past Medical History Past Medical History: Diabetes Mellitus, Hyperlipidemia, Hypertension, Renal Disease History of Any Multi-Drug Resistant Organisms: None Reported Past Surgical History: No Surgical Hx Reported Additional Past Surgical History / Comment(s): nephrotic syndrome repair as a child, Past Psychological History: No Psychological Hx Reported Smoking Status: Current every day smoker Past Alcohol Use History: None Reported Past Drug Use History: None Reported General Exam - General Exam Comments Initial Comments: GENERAL: Patient is well-developed and well-nourished. Patient is nontoxic and well- hydrated and is in mild distress. ENT: Neck is soft and supple. No significant lymphadenopathy is noted. Mild erythema to the pharynx. Moist mucous membranes. Neck has full range of motion without eliciting any pain. EYES: The sclera were anicteric and conjunctiva were pink and moist. Extraocular movements were intact and pupils were equal round and reactive to light. Eyelids were unremarkable. PULMONARY: Unlabored respirations. Good breath sounds bilaterally. No audible rales rhonchi or wheezing was noted. CARDIOVASCULAR: There is a regular rate and rhythm without any murmurs gallops or rubs. ABDOMEN: Soft and nontender with normal bowel sounds. SKIN: Skin is clear with no lesions or rashes and otherwise unremarkable. NEUROLOGIC: Patient is alert and oriented x3. Cranial nerves II through XII are grossly intact. Motor and sensory are also intact. Normal speech, volume and content. Symmetrical smile. MUSCULOSKELETAL: Normal extremities with adequate strength and full range of motion. LYMPHATICS: No significant lymphadenopathy is noted PSYCHIATRIC: Normal psychiatric evaluation. Limitations: no limitations Course Vital Signs 07/13/19 09:31 Temperature 98.2 F Pulse Rate 95 Respiratory 17 Rate Blood Pressure 114/72 O2 Sat by Pulse 98 Oximetry Medical Decision Making - Medical Decision Making Patient refused to have a strep throat test done even though his throat was mildly erythematous. Disposition Clinical Impression: Acute upper respiratory infection Disposition: HOME SELF-CARE Condition: Good Instructions (If sedation given, give patient instructions): Upper Respiratory Infection (ED) Is patient prescribed a controlled substance at d/c from ED?: No Referrals: Rubén Puente MD [Primary Care Provider] - 1-2 days Time of Disposition: 09:51
== END 2019-07-13 09:59 | disposition home or self-care (01) ==
LOC: EC 09:16
DX: J06.9 Acute upper respiratory infection, unspecified (principal); E11.9 Type 2 diabetes mellitus without complications; I10 Essential (primary) hypertension; F17.200 Nicotine dependence, unspecified, uncomplicated; Z79.4 Long term (current) use of insulin; Z79.899 Other long term (current) drug therapy; Z53.20 Procedure and treatment not carried out because of patient's decision for unspecified reasons
CPT/HCPCS: 99283

== ENCOUNTER 2019-08-26 08:09 | Observation (INO) | payer OTHER ==
[2019-08-26] MEDS ORDERED: NITROGLYCERIN OINT 1 INCH/GM PACKET TOPICAL STA (08:35)
[2019-08-26] MEDS ORDERED: ASPIRIN 81 MG PO STA (08:35)
--- NOTE | 2019-08-26 08:40 | ED ---
General Adult HPI - General Chief complaint: Chest Pain Stated complaint: Chest pain Time Seen by Provider: 08/26/19 08:17 Source: patient, RN notes reviewed Mode of arrival: ambulatory Limitations: no limitations - History of Present Illness Initial comments: Patient is a pleasant 44-year-old male presenting to the emergency Department with chest discomfort. Onset of symptoms was yesterday evening following moving a large item. Patient has discomfort left chest. Discomfort is only present with movement. No discomfort at rest. No associated dyspnea, nausea, or diaphoresis. No history of similar symptoms previously. No radiation of discomfort. Patient has been off his medication for hypertension and diabetes over the past month. No leg pain or leg swelling. - Related Data Home Medications Medication Instructions Recorded Confirmed Insulin Glargine,Hum.rec.anlog 30 unit SQ DAILY 08/12/18 08/26/19 [Basaglar Kwikpen U-100] Insulin Lispro [Admelog] See Protocol SQ AC-TID 09/16/18 08/26/19 Atorvastatin Calcium [Lipitor] 80 mg PO DAILY 08/26/19 08/26/19 Lisinopril 40 mg PO DAILY 08/26/19 08/26/19 Allergies Allergy/AdvReac Type Severity Reaction Status Date / Time No Known Allergies Allergy Verified 08/26/19 09:06 Review of Systems ROS Statement: Those systems with pertinent positive or pertinent negative responses have been documented in the HPI. ROS Other: All systems not noted in ROS Statement are negative. Constitutional: Denies: fever Eyes: Denies: eye pain ENT: Denies: ear pain Respiratory: Denies: cough, dyspnea Cardiovascular: Reports: as per HPI, chest pain Endocrine: Denies: fatigue Gastrointestinal: Denies: abdominal pain Genitourinary: Denies: dysuria Musculoskeletal: Denies: back pain Skin: Denies: rash Neurological: Denies: weakness Past Medical History Past Medical History: Diabetes Mellitus, Hyperlipidemia, Hypertension, Renal Disease History of Any Multi-Drug Resistant Organisms: None Reported Past Surgical History: No Surgical Hx Reported Additional Past Surgical History / Comment(s): nephrotic syndrome repair as a child, Past Psychological History: No Psychological Hx Reported Smoking Status: Current every day smoker Past Alcohol Use History: None Reported Past Drug Use History: None Reported General Exam Limitations: no limitations General appearance: alert, in no apparent distress Head exam: Present: normocephalic Eye exam: Present: normal appearance, PERRL ENT exam: Present: normal oropharynx Neck exam: Present: normal inspection Respiratory exam: Present: normal lung sounds bilaterally. Absent: chest wall tenderness Cardiovascular Exam: Present: regular rate, normal rhythm Expanded Peripheral pulses: 2+: Radial (R), Radial (L), Dorsalis Pedis (R), Dorsalis Pedis (L) GI/Abdominal exam: Present: soft. Absent: tenderness Extremities exam: Present: normal inspection. Absent: pedal edema, calf tenderness Neurological exam: Present: alert Psychiatric exam: Present: normal affect, normal mood Skin exam: Present: normal color Course Vital Signs 08/26/19 08:12 Temperature 97.9 F Pulse Rate 85 Respiratory 18 Rate Blood Pressure 158/97 O2 Sat by Pulse 100 Oximetry EKG Findings - EKG Comments: EKG Findings:: Normal sinus rhythm 80. NC 132. QRS 106. QT 360. QTC 4:15. Normal axis. LVH criteria. Mild borderline ST change diffusely. Medical Decision Making - Medical Decision Making Patient reevaluated and unchanged. Patient updated on results and plan. Case was discussed in detail with Dr. Puente, who will admit his patient. Echo will be ordered and cardiology will be placed on consult. - Lab Data Result diagrams: 08/26/19 08:47 08/26/19 08:47 Lab Results 08/26/19 08/26/19 08/26/19 Range/Units 08:47 08:47 08:47 WBC 6.5 (3.8-10.6) k/uL RBC 4.24 L (4.30-5.90) m/uL Hgb 13.5 (13.0-17.5) gm/dL Hct 39.9 (39.0-53.0) % MCV 94.2 (80.0-100.0) fL MCH 31.8 (25.0-35.0) pg MCHC 33.7 (31.0-37.0) g/dL RDW 11.9 (11.5-15.5) % Plt Count 251 (150-450) k/uL Neutrophils % 75 % Lymphocytes % 17 % Monocytes % 4 % Eosinophils % 2 % Basophils % 0 % Neutrophils # 4.9 (1.3-7.7) k/uL Lymphocytes # 1.1 (1.0-4.8) k/uL Monocytes # 0.3 (0-1.0) k/uL Eosinophils # 0.1 (0-0.7) k/uL Basophils # 0.0 (0-0.2) k/uL PT 10.1 (9.0-12.0) sec INR 1.0 (<1.2) APTT 21.2 L (22.0-30.0) sec D-Dimer 0.35 (<0.60) mg/L FEU Sodium 135 L (137-145) mmol/L Potassium 4.8 (3.5-5.1) mmol/L Chloride 105 (98-107) mmol/L Carbon Dioxide 26 (22-30) mmol/L Anion Gap 4 mmol/L BUN 18 (9-20) mg/dL Creatinine 0.88 (0.66-1.25) mg/dL Est GFR (CKD-EPI)AfAm >90 (>60 ml/min/1.73 sqM) Est GFR (CKD-EPI)NonAf >90 (>60 ml/min/1.73 sqM) Glucose 185 H (74-99) mg/dL Calcium 8.9 (8.4-10.2) mg/dL Magnesium 1.8 (1.6-2.3) mg/dL Total Bilirubin 1.0 (0.2-1.3) mg/dL AST 52 (17-59) U/L ALT 39 (4-49) U/L Alkaline Phosphatase 90 (38-126) U/L Creatine Kinase 551 H (55-170) U/L CK-MB (CK-2) (0.0-2.4) ng/mL Troponin I (0.000-0.034) ng/mL Total Protein 6.7 (6.3-8.2) g/dL Albumin 3.8 (3.5-5.0) g/dL 08/26/19 Range/Units 08:47 WBC (3.8-10.6) k/uL RBC (4.30-5.90) m/uL Hgb (13.0-17.5) gm/dL Hct (39.0-53.0) % MCV (80.0-100.0) fL MCH (25.0-35.0) pg MCHC (31.0-37.0) g/dL RDW (11.5-15.5) % Plt Count (150-450) k/uL Neutrophils % % Lymphocytes % % Monocytes % % Eosinophils % % Basophils % % Neutrophils # (1.3-7.7) k/uL Lymphocytes # (1.0-4.8) k/uL Monocytes # (0-1.0) k/uL Eosinophils # (0-0.7) k/uL Basophils # (0-0.2) k/uL PT (9.0-12.0) sec INR (<1.2) APTT (22.0-30.0) sec D-Dimer (<0.60) mg/L FEU Sodium (137-145) mmol/L Potassium (3.5-5.1) mmol/L Chloride (98-107) mmol/L Carbon Dioxide (22-30) mmol/L Anion Gap mmol/L BUN (9-20) mg/dL Creatinine (0.66-1.25) mg/dL Est GFR (CKD-EPI)AfAm (>60 ml/min/1.73 sqM) Est GFR (CKD-EPI)NonAf (>60 ml/min/1.73 sqM) Glucose (74-99) mg/dL Calcium (8.4-10.2) mg/dL Magnesium (1.6-2.3) mg/dL Total Bilirubin (0.2-1.3) mg/dL AST (17-59) U/L ALT (4-49) U/L Alkaline Phosphatase (38-126) U/L Creatine Kinase (55-170) U/L CK-MB (CK-2) 2.3 (0.0-2.4) ng/mL Troponin I <0.012 (0.000-0.034) ng/mL Total Protein (6.3-8.2) g/dL Albumin (3.5-5.0) g/dL - Radiology Data Radiology results: image reviewed (Chest x-ray shows no acute process) Disposition Clinical Impression: Chest pain Disposition: ADMITTED IP TO THIS [facility] Is patient prescribed a controlled substance at d/c from ED?: No Referrals: Rubén Puente MD [Primary Care Provider] - 1-2 days Decision Time: 11:01
[2019-08-26 08:59] LABS: Basophils % (A) 0 %; Eosinophils # (A) 0.1 k/uL (0-0.7); Eosinophils % (A) 2 %; HCT 39.9 % (39.0-53.0); HGB 13.5 gm/dL (13.0-17.5); Lymphocytes # (A) 1.1 k/uL (1.0-4.8); Lymphocytes % (A) 17 %; MCH 31.8 pg (25.0-35.0); MCHC 33.7 g/dL (31.0-37.0); MCV 94.2 fL (80.0-100.0); Mean Platelet Volume 8.3; Monocytes # (A) 0.3 k/uL (0-1.0); Monocytes % (A) 4 %; Neutrophils # (A) 4.9 k/uL (1.3-7.7); Neutrophils % (A) 75 %; Platelet Count 251 k/uL (150-450); RBC 4.24 m/uL (4.30-5.90); RDW 11.9 % (11.5-15.5); WBC 6.5 k/uL (3.8-10.6)
--- NOTE | 2019-08-26 09:00 | XR ---
EXAMINATION TYPE: XR chest 2V DATE OF EXAM: 08/26/2019 COMPARISON: Chest x-ray December 23, 2016. HISTORY: Left-sided chest pain today. TECHNIQUE: Frontal and lateral views of the chest are obtained. FINDINGS: There is no focal air space opacity, pleural effusion, or pneumothorax seen. The cardiac silhouette size is within normal limits. The osseous structures are intact. Overlying EKG leads red emonstrated. IMPRESSION: No acute process. No significant change from prior.
[2019-08-26 09:14] LABS: ALT 39 U/L (4-49); AST 52 U/L (17-59); African American GFR (CKD) >90 (>60 ml/min/1.73 sqM); Albumin 3.8 g/dL (3.5-5.0); Alkaline Phosphatase 90 U/L (38-126); Anion Gap 4 mmol/L; Blood Urea Nitrogen 18 mg/dL (9-20); Calcium 8.9 mg/dL (8.4-10.2); Carbon Dioxide 26 mmol/L (22-30); Chloride 105 mmol/L (98-107); Creatine Kinase 551 U/L (55-170); Glucose 185 mg/dL (74-99); Magnesium 1.8 mg/dL (1.6-2.3); Non-African American GFR(CKD) >90 (>60 ml/min/1.73 sqM); Sodium 135 mmol/L (137-145); Total Protein 6.7 g/dL (6.3-8.2)
[2019-08-26 09:15] LABS: Potassium 4.8 mmol/L (3.5-5.1)
[2019-08-26 09:22] LABS: D-Dimer 0.35 mg/L FEU (<0.60); Prothrombin Time 10.1 sec (9.0-12.0)
[2019-08-26 09:25] LABS: Partial Thromboplastin Time 21.2 sec (22.0-30.0)
[2019-08-26 09:40] LABS: Creatine Kinase MB 2.3 ng/mL (0.0-2.4); Troponin I <0.012 ng/mL (0.000-0.034)
[2019-08-26] MEDS ORDERED: NITROGLYCERIN SL TABS 0.4 MG TAB SUBLINGUAL PRN (11:01)
[2019-08-26] MEDS ORDERED: NITROGLYCERIN OINT 1 INCH/GM PACKET TOPICAL SCH (12:00)
--- NOTE | 2019-08-26 12:29 | P.CRDCN ---
History of Present Illness History of present illness: HISTORY OF PRESENTING ILLNESS This is a pleasant 44-year-old -[place] male past medical history significant for diabetes mellitus, hypertension, dyslipidemia and chronic nicotine dependence. 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 We have been asked to see in consultation for chest pain. The patient states last evening he was moving a heavy object and shortly thereafter he developed a discomfort under his left pectoral muscle. The discomfort is reproducible on palpation and worsened when he moves his torso leaning forward. There is no radiation to the arm, back, neck or jaw. He has no associated shortness of breath, dizziness, palpitations, nausea, vomiting or diaphoresis. DIAGNOSTICS EKG reveals early repolarization, consistent with previous EKGs. Chest xray negative for an acute cardiopulmonary process. Laboratory reviewed, WBC 6.5, hemoglobin 13.5, platelets 251, d-dimer 0.35, sodium 135, potassium 4.8, creatinine 0.88, magnesium 1.8, CK 551 and troponin negative 1. Current cardiac medications include atorvastatin 80 mg daily and lisinopril 40 mg daily. REVIEW OF SYSTEMS At the time of my exam: CONSTITUTIONAL: Denies fever or chills. CARDIOVASCULAR: Denies chest pain, shortness of breath, orthopnea, PND or palpitations. RESPIRATORY: Denies cough. GASTROINTESTINAL: Denies abdominal pain, diarrhea, constipation, nausea or vomiting. MUSCULOSKELETAL: Complains of reproducible discomfort. Pectoral muscle. NEUROLOGIC: Denies numbness, tingling or weakness. ENDOCRINE: Denies fatigue, weight change, polydipsia or polyurina. GENITOURINARY: Denies burning, hematuria or urgency with micturation. HEMATOLOGIC: Denies history of anemia or bleeding. PHYSICAL EXAMINATION Blood pressure 123/75 heart rate 65 afebrile and maintaining oxygen saturation on room air. CONSTITUTIONAL: No apparent distress. HEENT: Head is normocephalic. Pupils are equal, round. Sclerae anicteric. Mucous membranes of the mouth are moist. No JVD. No carotid bruit. CHEST EXAMINATION: Lungs are clear to auscultation. Positive point tenderness under the left pectoral muscle is noted on palpation, not exacerbated with deep breathing. HEART EXAMINATION: Regular rate and rhythm. S1, S2 heard. No murmurs, gallops or rub. ABDOMEN: Soft, nontender. Positive bowel sounds. EXTREMITIES: 2+ peripheral pulses, no lower extremity edema and no calf tenderness. NEUROLOGIC EXAMINATION: Patient is awake, alert and oriented x3. ASSESSMENT Chest pain, atypical and reproducible on palpation. Suggestive of musculos keletal injury. Worsens when he leans forward and presses on the area. Early repolarization noted on EKG Diabetes mellitus Hypertension Dyslipidemia Chronic nicotine dependence PLAN Continue to obtain serial enzymes to rule out an acute event. 2-D echocardiogram and Doppler study has been ordered and will be reviewed. Resume lisinopril and atorvastatin as previously ordered. Consider anti-inflammatory analgesia for pain control. Smoking cessation recommended. Thank you kindly for this consultation. Nurse Practitioner note has been reviewed, I agree with a documented findings and plan of care. Patient was seen and examined. Past Medical History Past Medical History: Diabetes Mellitus, Hyperlipidemia, Hypertension History of Any Multi-Drug Resistant Organisms: None Reported Past Surgical History: No Surgical Hx Reported Additional Past Surgical History / Comment(s): nephrotic syndrome repair as a child- resolved. Past Anesthesia/Blood Transfusion Reactions: No Reported Reaction Past Psychological History: No Psychological Hx Reported Smoking Status: Current every day smoker Past Alcohol Use History: None Reported Additional Past Alcohol Use History / Comment(s): pt states he is done smoking as of today. Past Drug Use History: None Reported Medications and Allergies Home Medications Medication Instructions Recorded Confirmed Type Insulin Glargine,Hum.rec.anlog 30 unit SQ DAILY 08/12/18 08/26/19 History [Basaglar Stan U-100] Insulin Lispro [Admelog] See Protocol SQ AC-TID 09/16/18 08/26/19 History Atorvastatin Calcium [Lipitor] 80 mg PO DAILY 08/26/19 08/26/19 History Lisinopril 40 mg PO DAILY 08/26/19 08/26/19 History Allergies Allergy/AdvReac Type Severity Reaction Status Date / Time No Known Allergies Allergy Verified 08/26/19 09:06 Physical Exam Vitals: Vital Signs Temp Pulse Pulse Resp BP BP Pulse Ox 08/26/19 12:00 65 18 08/26/19 11:45 97.9 F 65 18 123/75 100 08/26/19 11:25 71 16 130/84 97 08/26/19 08:12 97.9 F 85 18 158/97 100 Intake and Output 08/25/19 08/26/1908/25/20 22:59 06:59 14:59 Other: Voiding Method Toilet Weight 68.039 kg Results 08/26/19 08:47 08/26/19 08:47 Cardiac Enzymes 08/26/19 08/26/19 Range/Units 08:47 08:47 AST 52 (17-59) U/L CK-MB (CK-2) 2.3 (0.0-2.4) ng/mL Troponin I <0.012 (0.000-0.034) ng/mL Coagulation 08/26/19 Range/Units 08:47 PT 10.1 (9.0-12.0) sec APTT 21.2 L (22.0-30.0) sec CBC 08/26/19 Range/Units 08:47 WBC 6.5 (3.8-10.6) k/uL RBC 4.24 L (4.30-5.90) m/uL Hgb 13.5 (13.0-17.5) gm/dL Hct 39.9 (39.0-53.0) % Plt Count 251 (150-450) k/uL Comprehensive Metabolic Panel 08/26/19 Range/Units 08:47 Sodium 135 L (137-145) mmol/L Potassium 4.8 (3.5-5.1) mmol/L Chloride 105 (98-107) mmol/L Carbon Dioxide 26 (22-30) mmol/L BUN 18 (9-20) mg/dL Creatinine 0.88 (0.66-1.25) mg/dL Glucose 185 H (74-99) mg/dL Calcium 8.9 (8.4-10.2) mg/dL AST 52 (17-59) U/L ALT 39 (4-49) U/L Alkaline Phosphatase 90 (38-126) U/L Total Protein 6.7 (6.3-8.2) g/dL Albumin 3.8 (3.5-5.0) g/dL Current Medications Generic Name Dose Route Start Last Admin Trade Name Freq PRN Reason Stop Dose Admin Aspirin 325 mg 08/27/19 09:00 Aspirin PO DAILY STEPH Nitroglycerin 0.4 mg 08/26/19 11:01 Nitrostat SUBLINGUAL Q5M PRN Chest Pain Nitroglycerin 1 inch 08/26/19 12:00 08/26/19 12:06 Nitro-Bid Oint TOPICAL Not Given Q6HR STEPH Sodium Chloride 10 ml 08/26/19 21:00 Saline Flush IV BID STEPH Intake and Output 08/25/19 08/26/19 08/26/19 22:59 06:59 14:59 Other: Voiding Method Toilet Weight 68.039 kg Patient Weight 08/27/19 06:59 Weight 68.039 kg 08/26/19 08:47 08/26/19 08:47
[2019-08-26] MEDS: LISINOPRIL 20 MG TAB PO SCH (13:45)
[2019-08-26 16:39] LABS: Glucose,Whole Blood 345 mg/dL (75-99)
[2019-08-26] MEDS: INSULIN ASPART (NovoLOG) 100 UNIT/ML VIAL SQ SCH ×2 (17:20→21:07)
[2019-08-26 20:35] LABS: Glucose,Whole Blood 163 mg/dL (75-99)
[2019-08-27 06:44] LABS: Glucose,Whole Blood 428 mg/dL (75-99)
[2019-08-27] MEDS ORDERED: INSULIN DETEMIR (LEVEMIR) 100 UNIT/ML SYR SQ SCH (07:00)
[2019-08-27] MEDS ORDERED: INSULIN ASPART (NovoLOG) 100 UNIT/ML VIAL SQ ONE (07:15)
[2019-08-27] MEDS: INSULIN ASPART (NovoLOG) 100 UNIT/ML VIAL SQ SCH (07:33)
[2019-08-27 07:36] VITALS: BP 139/76; PULSE 75; RESP 19; TEMP 98.5
[2019-08-27 08:50] LABS: Cholesterol 214 mg/dL (<200); HDL Cholesterol 94 mg/dL (40-60); LDL Cholesterol,Calculated 108 mg/dL (0-99); Triglycerides 60 mg/dL (<150)
[2019-08-27] MEDS ORDERED: ASPIRIN 325 MG TAB PO SCH (09:00)
[2019-08-27] MEDS ORDERED: ASPIRIN 81 MG PO SCH (09:00)
[2019-08-27] MEDS ORDERED: ATORVASTATIN 80 MG TAB PO SCH (09:00)
--- NOTE | 2019-08-27 09:55 | P.PN ---
Subjective HISTORY OF PRESENTING ILLNESS This is a pleasant 44-year-old -[place] male past medical history significant for diabetes mellitus, hypertension, dyslipidemia and chronic nicotine dependence. 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 He is seen and examined sitting up on the edge of the bed. He continues to have muscular pain under the left pectoral muscle that is reproducible with movement of his upper body and left arm. The pain is reproducible on palpation. Blood pressure 139/76 heart rate 75 afebrile maintaining oxygen saturation on room air. Laboratory data reviewed, cardiac enzymes negative 3, ESR 8, CRP less than 5 LDL 108 and HDL 94. Blood sugar this morning 428. Echocardiogram revealed preserved LV systolic function with ejection fraction 55-60% with no pericardial effusion. PHYSICAL EXAMINATION Blood pressure 123/75 heart rate 65 afebrile and maintaining oxygen saturation on room air. CONSTITUTIONAL: No apparent distress. HEENT: Head is normocephalic. Pupils are equal, round. Sclerae anicteric. Mucous membranes of the mouth are moist. No JVD. No carotid bruit. CHEST EXAMINATION: Lungs are clear to auscultation. Positive point tenderness under the left pectoral muscle is noted on palpation, not exacerbated with deep breathing. HEART EXAMINATION: Regular rate and rhythm. S1, S2 heard. No murmurs, gallops or rub. ABDOMEN: Soft, nontender. Positive bowel sounds. EXTREMITIES: 2+ peripheral pulses, no lower extremity edema and no calf tend erness. NEUROLOGIC EXAMINATION: Patient is awake, alert and oriented x3. ASSESSMENT Chest pain, atypical and reproducible on palpation. Suggestive of musculoskeletal injury. Worsens when he leans forward and presses on the area. Early repolarization noted on EKG Diabetes mellitus Hypertension Dyslipidemia Chronic nicotine dependence PLAN Echocardigram reviewed, no evidence of pericardial effusion noted. Pain is related to muscular strain from moving furniture. Ongoing medical management and care of uncontrolled diabetes mellitus. Strict medication adherence discussed. Nurse Practitioner note has been reviewed, I agree with a documented findings and plan of care. Patient was seen and examined. Objective - Vital Signs Vital signs: Vital Signs Temp 98.5 F 08/27/19 07:35 Pulse 75 08/27/19 07:35 Resp 19 08/27/19 07:35 BP 139/76 08/27/19 07:35 Pulse Ox 99 03/19/20 07:35 Intake & Output 08/26/19 08/27/19 08/27/19 18:59 06:59 18:59 Intake Total 420 480 Balance 420 480 Weight 68.039 kg Intake: Oral 420 480 Other: Voiding Method Toilet Toilet # Voids 1 - Labs CBC & Chem 7: 08/26/19 08:47 08/26/19 08:47 Labs: Abnormal Lab Results - Last 24 Hours (Table) 08/26/19 08/26/19 08/27/19 Range/Units 16:38 20:34 06:43 POC Glucose (mg/dL) 345 H 163 H 428 H (75-99) mg/dL Cholesterol (<200) mg/dL LDL Cholesterol, Calc (0-99) mg/dL HDL Cholesterol (40-60) mg/dL 08/27/19 Range/Units 08:03 POC Glucose (mg/dL) (75-99) mg/dL Cholesterol 214 H (<200) mg/dL LDL Cholesterol, Calc 108 H (0-99) mg/dL HDL Cholesterol 94 H (40-60) mg/dL
[2019-08-27] MEDS: LISINOPRIL 20 MG TAB PO SCH (10:28)
--- NOTE | 2019-08-27 10:35 | ECHOF ---
Referral Reason:Chest pain MEASUREMENTS -------- HEIGHT: 162.6 cm WEIGHT: 68.0 kg BP: RVIDd: 2.8 cm (< 3.3) IVSd: 1.4 cm (0.6 - 1.1) LVIDd: 4.0 cm (3.9 - 5.3) LVPWd: 1.4 cm (0.6 - 1.1) IVSs: 1.6 cm LVIDs: 3.0 cm LVPWs: 1.7 cm LA Diam: 2.9 cm (2.7 - 3.8) Ao Diam: 2.7 cm (2.0 - 3.7) AV Cusp: 2.0 cm (1.5 - 2.6) MV EXCURSION: 16.920 mm (> 18.000) MV EF SLOPE: 99 mm/s (70 - 150) EPSS: 0.4 cm MV E Rolly: 0.93 m/s MV DecT: 141 ms MV A Rolly: 0.68 m/s MV E/A Ratio: 1.36 RAP: 5.00 mmHg RVSP: 18.96 mmHg FINDINGS -------- Sinus rhythm. This was a technically good study. The left ventricular size is normal. There is moderate concentric left ventricular hypertrophy. O verall left ventricular systolic function is normal with, an EF between 55 - 60 %. The right ventricle is normal in size. The left atrial size is normal. The right atrial size is normal. The aortic valve is trileaflet, and appears structurally normal. No aortic stenosis or regurgitation. Mild mitral regurgitation is present. Mild tricuspid regurgitation present. Right ventricular systolic pressure is normal at < 35 mmHg. There is no evidence of pulmonary hypertension. There is no pulmonic regurgitation present. The aortic root size is normal. There is no pericardial effusion. CONCLUSIONS -------- 1. Sinus rhythm. 2. This was a technically good study. 3. The left ventricular size is normal. 4. There is moderate concentric left ventricular hypertrophy. 5. Overall left ventricular systolic function is normal with, an EF between 55 - 60 %. 6. The right ventricle is normal in size. 7. The left atrial size is normal. 8. The right atrial size is normal. 9. The aortic valve is trileaflet, and appears structurally normal. No aortic stenosis or regurgitati on. 10. Mild mitral regurgitation is present. 11. Mild tricuspid regurgitation present. 12. Right ventricular systolic pressure is normal at < 35 mmHg. 13. There is no evidence of pulmonary hypertension. 14. There is no pulmonic regurgitation present. 15. The aortic root size is normal. 16. There is no pericardial effusion. FELTMAKER: Ivonne Adrian RDCS
[2019-08-27 11:55] LABS: Glucose,Whole Blood 141 mg/dL (75-99)
--- NOTE | 2019-08-27 11:55 | HP ---
HISTORY AND PHYSICAL CHIEF COMPLAINT: Chest pain. HISTORY OF PRESENT ILLNESS: This is another admission for this 44-year-old male who is noncompliant type 1 insulin dependent diabetic. He was moving some heavy furniture and experienced some left anterior chest wall pain, came to emergency room. There was concern that he may have pericarditis and he was admitted. He has had no fever, chills, cough, history of upper respiratory infection, etc. He has had no diaphoresis or shortness of breath. Troponin was normal. REVIEW OF SYSTEMS: He has no other symptoms. He has had no abdominal pain, nausea, vomiting, diarrhea, melena, liver disease, renal failure, dysuria, frequency, urgency, etc. Past medical history, family history and personal and social histories are unremarkable otherwise. When he was last seen in June, he was on lisinopril 40 mg once a day, atorvastatin 80, vitamin D3, Admelog 10 units 3 times a day, Basaglar 40 units once a day and Lasix 40 mg once a day. He does smoke. PHYSICAL EXAMINATION: Blood pressure is 132/88, pulse of 128, respirations 16. He is afebrile. In general, he appeared to be tall, slender and in no acute distress. Skin color is normal. Skin is warm, dry. Lymph nodes are not enlarged. Head, ears, eyes, nose, mouth, and throat were normal. Neck veins not distended. Thyroid is not enlarged. Chest is clear. There are no rubs. There are no rales or rhonchi. Cardiac exam demonstrated sinus rhythm and no murmurs or extra sounds. There was tachycardia and he was tender in the left anterior chest wall. Abdomen is soft, nontender. Extremities: Normal. Neurologically, he is intact. IMPRESSION: 1. Atypical chest pain. 2. Chest wall pain. 3. Uncontrolled type 1 insulin-dependent diabetes mellitus. PLAN: 1. Bed rest. 2. IV fluids. 3. Serial EKGs and enzymes. 4. Consult with Cardiology. MMODL / IJN: [id number] /
--- NOTE | 2019-08-27 18:41 | DS ---
DISCHARGE SUMMARY DATE OF DISCHARGE: 08/27/2019 CHIEF COMPLAINT: Chest pain. HISTORY OF PRESENT ILLNESS AND PHYSICAL EXAMINATION: Details of this man's history and physical can be found in the initial workup. LABORATORY STUDIES: While he was in the hospital he had laboratory studies, the details of which can be found in the laboratory section of his chart. COURSE IN THE HOSPITAL: After admission, he was placed on bedrest and started on intravenous fluids, intravenous fluids, and serial EKGs and enzymes. Echocardiogram was unremarkable. He was seen by cardiology, and it was felt that he could be discharged. He will be followed up the day after discharge, because he will require refills on some of his medications, including his insulin. FINAL DIAGNOSES: 1. Atypical chest wall pain. 2. Uncontrolled type 1 insulin-dependent diabetes mellitus. OPERATIONS: None. CONSULTATION: Cardiology. He is improved. ELLIE / NELSON: [id number] /
== END 2019-08-27 12:35 | disposition home or self-care (01) ==
LOC: EC 08:09 → 1SOBS 11:02
PROVIDERS: ADMIT Family Medicine; ATTEND Family Medicine
DX: R07.89 Other chest pain (principal); F17.200 Nicotine dependence, unspecified, uncomplicated; I10 Essential (primary) hypertension; E78.5 Hyperlipidemia, unspecified; E10.9 Type 1 diabetes mellitus without complications; Z91.14 Patient's other noncompliance with medication regimen; Z79.899 Other long term (current) drug therapy; Z87.441 Personal history of nephrotic syndrome
CPT/HCPCS: 93005 ×2; 99285; 36415; 93306; 85379; 80061; 80053; 85652; 82550; 82553; 83735; 84484; 85025; 85610; 85730; 86140; 71046; G0378 ×2

== ENCOUNTER 2020-08-11 11:08 | Emergency (ER) | payer OTHER ==
[2020-08-11 11:17] VITALS: BP 149/87; PULSE 69; RESP 16; TEMP 98.3
--- NOTE | 2020-08-11 11:38 | ED ---
Wound/Laceration HPI - General Chief Complaint: Wound/Laceration Stated Complaint: foot lac Time Seen by Provider: 08/11/20 11:29 Source: patient, RN notes reviewed Mode of arrival: ambulatory Limitations: no limitations - History of Present Illness Initial Comments: This a 45-year-old male present emergency department to complaint of possible infection to his foot. Patient states that he's been having bleeding from his toenail rubbing his other toe. Patient's Right Foot. He Is Known Diabetic. Patient States She's Been Trying to Cut His Nail. Patient Denies Any Fevers Chills No Pain Extending into His Foot. - Related Data Home Medications Medication Instructions Recorded Confirmed Insulin Glargine,Hum.rec.anlog 30 unit SQ DAILY 08/12/18 08/26/19 [Basaglar Kwikpen U-100] Insulin Lispro [Admelog] See Protocol SQ AC-TID 09/16/18 08/26/19 Atorvastatin Calcium [Lipitor] 80 mg PO DAILY 08/26/19 08/26/19 lisinopriL 40 mg PO DAILY 08/26/19 08/26/19 Previous Rx's Medication Instructions Recorded Cephalexin [Keflex] 500 mg PO Q6HR #28 cap 08/11/20 Allergies Allergy/AdvReac Type Severity Reaction Status Date / Time No Known Allergies Allergy Verified 08/26/19 09:06 Review of Systems ROS Statement: Those systems with pertinent positive or pertinent negative responses have been documented in the HPI. ROS Other: All systems not noted in ROS Statement are negative. Past Medical History Past Medical History: Diabetes Mellitus, Hyperlipidemia, Hypertension History of Any Multi-Drug Resistant Organisms: None Reported Past Surgical History: No Surgical Hx Reported Additional Past Surgical History / Comment(s): nephrotic syndrome repair as a child- resolved. Past Anesthesia/Blood Transfusion Reactions: No Reported Reaction Past Psychological History: No Psychological Hx Reported Smoking Status: Current every day smoker Past Alcohol Use History: None Reported Past Drug Use History: Marijuana General Exam Limitations: no limitations General appearance: alert, in no apparent distress Head exam: Present: atraumatic, normocephalic, normal inspection Respiratory exam: Present: normal lung sounds bilaterally. Absent: respiratory distress, wheezes, rales, rhonchi, stridor Cardiovascular Exam: Present: regular rate, normal rhythm, normal heart sounds. Absent: systolic murmur, diastolic murmur, rubs, gallop, clicks Extremities exam: Present: other (Patient's right foot shows a wound in the second digit there is minimal erythema no tenderness, nails are extending over the skin, pedal pulses equal bilaterally) Course Vital Signs 08/11/20 11:13 Temperature 98.3 F Pulse Rate 69 Respiratory 16 Rate Blood Pressure 149/87 O2 Sat by Pulse 99 Oximetry Medical Decision Making - Medical Decision Making Patient has a wound of his second digit right foot. There is no overt signs of infection develop concern as he is a diabetic with antibiotics, patient will follow-up with podiatry for nail cutting in recheck. Return parameters were discussed Disposition Clinical Impression: Wound of right foot Disposition: HOME SELF-CARE Condition: Stable Instructions (If sedation given, give patient instructions): Foot Care for People with Diabetes (ED) Additional Instructions: Please return to the Emergency Department if symptoms worsen or any other concerns. Prescriptions: Cephalexin [Keflex] 500 mg PO Q6HR #28 cap Is patient prescribed a controlled substance at d/c from ED?: No Referrals: [facility] [Primary Care Provider] - 1-2 days Devon Quijano DPM [STAFF PHYSICIAN] - 1-2 days Time of Disposition: 11:38
== END 2020-08-11 11:51 | disposition home or self-care (01) ==
LOC: EC 11:08
DX: S91.114A Laceration without foreign body of right lesser toe(s) without damage to nail, initial encounter (principal); E11.9 Type 2 diabetes mellitus without complications; E78.5 Hyperlipidemia, unspecified; I10 Essential (primary) hypertension; F17.200 Nicotine dependence, unspecified, uncomplicated; Z79.4 Long term (current) use of insulin; Z79.899 Other long term (current) drug therapy; X58.XXXA Exposure to other specified factors, initial encounter
CPT/HCPCS: 99282

== ENCOUNTER 2021-09-19 21:41 | Emergency (ER) | payer OTHER ==
[2021-09-19 22:04] VITALS: TEMP 98.7
--- NOTE | 2021-09-20 01:13 | XR ---
EXAMINATION TYPE: XR toes LT DATE OF EXAM: 09/20/2021 COMPARISON: NONE HISTORY: Swelling TECHNIQUE: 4 views FINDINGS: There is some soft tissue swelling of the big toe. No fracture seen. No evidence of focal b one destruction. IMPRESSION: Mild swelling. No evidence of osteomyelitis.
[2021-09-20] MEDS ORDERED: DOXYCYCLINE 100 MG CAP PO STA (01:48)
--- NOTE | 2021-09-20 01:51 | ED ---
Extremity Problem HPI - General Chief complaint: Extremity Problem,Nontraumatic Stated complaint: Left big toe injury Time Seen by Provider: 09/20/21 01:31 Source: patient, RN notes reviewed Mode of arrival: ambulatory Limitations: no limitations - History of Present Illness Initial comments: This is a pleasant 46-year-old diabetic male who presents back complaining of left great toe pain which has developed over the past few days. Patient states he has a bit of redness and swelling. He denies any injury. No proximal symptomology. No fever or chills. No nausea or vomiting. No other complaints. No headache, no fever or chills, no changes in vision or hearing, no sore throat or difficulty with speech, no neck pain, no chest pain or shortness of breath, no abdominal pain, no nausea or vomiting, no changes in urination or bowel movements, no numbness or tingling, no extremity pain, no skin rashes or lesions. Patient is a nonsmoker. No alcohol or drug abuse. No history of MRSA. Patient has been a diabetic since he was 17 years old. Patient has never been assessed by [facility]. - Related Data Home Medications Medication Instructions Recorded Confirmed Insulin Glargine,Hum.rec.anlog 30 unit SQ DAILY 08/12/18 08/26/19 [Basaglar Kwikpen U-100] Insulin Lispro [Admelog] See Protocol SQ AC-TID 09/16/18 08/26/19 Atorvastatin Calcium [Lipitor] 80 mg PO DAILY 08/26/19 08/26/19 lisinopriL 40 mg PO DAILY 08/26/19 08/26/19 Previous Rx's Medication Instructions Recorded Cephalexin [Keflex] 500 mg PO Q6HR #28 cap 08/11/20 Doxycycline [Vibramycin] 100 mg PO BID 1 Days #20 each 09/20/21 Allergies Allergy/AdvReac Type Severity Reaction Status Date / Time No Known Allergies Allergy Verified 09/19/21 22:01 Review of Systems ROS Statement: Those systems with pertinent positive or pertinent negative responses have been documented in the HPI. ROS Other: All systems not noted in ROS Statement are negative. Past Medical History Past Medical History: Diabetes Mellitus, Hyperlipidemia, Hypertension History of Any Multi-Drug Resistant Organisms: None Reported Past Surgical History: No Surgical Hx Reported Additional Past Surgical History / Comment(s): nephrotic syndrome repair as a child- resolved. Past Anesthesia/Blood Transfusion Reactions: No Reported Reaction Past Psychological History: No Psychological Hx Reported Smoking Status: Current every day smoker Past Alcohol Use History: None Reported Past Drug Use History: Marijuana General Exam Limitations: no limitations General appearance: alert, in no apparent distress Head exam: Present: atraumatic, normocephalic, normal inspection Eye exam: Present: normal appearance, PERRL, EOMI. Absent: scleral icterus, conjunctival injection, periorbital swelling ENT exam: Present: normal exam, mucous membranes moist Neck exam: Present: normal inspection. Absent: tenderness, meningismus, lymphadenopathy Respiratory exam: Present: normal lung sounds bilaterally. Absent: respiratory distress, wheezes, rales, rhonchi, stridor Cardiovascular Exam: Present: regular rate, normal rhythm, normal heart sounds. Absent: systolic murmur, diastolic murmur, rubs, gallop, clicks GI/Abdominal exam: Present: soft, normal bowel sounds. Absent: distended, tenderness, guarding, rebound, rigid Extremities exam: Present: normal inspection, full ROM, normal capillary refill. Absent: tenderness, pedal edema, joint swelling, calf tenderness Back exam: Present: normal inspection Neurological exam: Present: alert, oriented X3, CN II-XII intact Psychiatric exam: Present: normal affect, normal mood Skin exam: Present: warm, dry, intact, normal color, erythema (Erythema adjacent to the eponychial fold of the left great toe, lateral aspect. Consistent with a mild paronychia. Ears no tenderness to the area. No lymphangitis. No proximal Jewell. Sensation intact to light touch.), other (Patient has yellowing of all toenails consistent with onychomycosis.). Absent: rash Course Vital Signs 09/19/21 09/20/21 22:01 02:13 Temperature 98.7 F Pulse Rate 76 80 Respiratory 18 19 Rate Blood Pressure 167/95 165/80 O2 Sat by Pulse 98 98 Oximetry Medical Decision Making - Medical Decision Making Patient's presentation consistent with a paronychia. X-ray shows no acute findings. Patient deferred I&D. We will treat the patient with antibiotics, warm soaks, follow-up with the primary care physician. Patient should also follow-up with a [facility] which I had a long conversation with him about. Doxycycline Follow-up with your regular physician as directed. Return to the ER immediately if any symptoms worsen, new symptoms arise, or any other problems develop. - Radiology Data Radiology results: report reviewed, image reviewed Disposition Clinical Impression: Paronychia of great toe of left foot Disposition: HOME SELF-CARE Condition: Good Instructions (If sedation given, give patient instructions): Paronychia (ED) Additional Instructions: Soak the area with warm soap and water or tender 15 minutes at a time at least 4 times a day. Take antibiotics as directed. Follow up with the [facility] as instructed. Follow-up with your regular physician as directed. Return to the ER immediately if any symptoms worsen, new symptoms arise, or any other problems develop. Prescriptions: Doxycycline [Vibramycin] 100 mg PO BID 1 Days #20 each Is patient prescribed a controlled substance at d/c from ED?: No Referrals: Rubén Puente MD [Primary Care Provider] - 1-2 days Rachelle Forrest DPM [STAFF PHYSICIAN] - 1-2 days Time of Disposition: 01:50
[2021-09-20 02:15] VITALS: BP 165/80; PULSE 80; RESP 19
== END 2021-09-20 02:15 | disposition home or self-care (01) ==
LOC: EC 21:41
DX: L03.032 Cellulitis of left toe (principal); E11.9 Type 2 diabetes mellitus without complications; I10 Essential (primary) hypertension; E78.5 Hyperlipidemia, unspecified; F17.200 Nicotine dependence, unspecified, uncomplicated; F12.90 Cannabis use, unspecified, uncomplicated; Z79.4 Long term (current) use of insulin; Z79.899 Other long term (current) drug therapy
CPT/HCPCS: 99283

== ENCOUNTER 2021-10-24 18:15 | Emergency (ER) | payer OTHER ==
[2021-10-24 18:39] VITALS: RESP 18; TEMP 98.2
[2021-10-24] MEDS ORDERED: lisinopriL 20 MG TAB PO STA (23:59)
--- NOTE | 2021-10-25 | ED ---
General Adult HPI - General Chief complaint: Recheck/Abnormal Lab/Rx Stated complaint: hypertension Time Seen by Provider: 10/24/21 23:45 Source: patient, RN notes reviewed, old records reviewed Mode of arrival: ambulatory Limitations: no limitations - History of Present Illness Initial comments: 46-year-old male, alert and oriented 4, presents for prescription refill for his lisinopril and atorvastatin. Patient states he does have an appointment with his primary care doctor but not until December 12. He has no complaints. He states his last A1c was 6.6. He is insulin-dependent diabetic. He did have a history of nephrotic syndrome at age 11 but has not had any complications since. He is a former smoker. -: week(s) (2) Severity scale (1-10): 0 Associated Symptoms: denies other symptoms - Related Data Home Medications Medication Instructions Recorded Confirmed Insulin Glargine,Hum.rec.anlog 30 unit SQ DAILY 08/12/18 08/26/19 [Basaglar Kwikpen U-100] Insulin Lispro [Admelog] See Protocol SQ AC-TID 09/16/18 08/26/19 Previous Rx's Medication Instructions Recorded Cephalexin [Keflex] 500 mg PO Q6HR #28 cap 08/11/20 Doxycycline [Vibramycin] 100 mg PO BID 1 Days #20 each 09/20/21 Atorvastatin [Lipitor] 80 mg PO DAILY 30 Days #30 tab 10/25/21 lisinopriL 40 mg PO DAILY 30 Days #30 tab 10/25/21 Allergies Allergy/AdvReac Type Severity Reaction Status Date / Time No Known Allergies Allergy Verified 09/19/21 22:01 Review of Systems ROS Statement: Those systems with pertinent positive or pertinent negative responses have been documented in the HPI. ROS Other: All systems not noted in ROS Statement are negative. Past Medical History Past Medical History: Diabetes Mellitus, Hyperlipidemia, Hypertension History of Any Multi-Drug Resistant Organisms: None Reported Past Surgical History: No Surgical Hx Reported Additional Past Surgical History / Comment(s): nephrotic syndrome repair as a child- resolved. Past Anesthesia/Blood Transfusion Reactions: No Reported Reaction Past Psychological History: No Psychological Hx Reported Smoking Status: Current every day smoker Past Alcohol Use History: None Reported Past Drug Use History: Marijuana General Exam Limitations: no limitations General appearance: alert, in no apparent distress Head exam: Present: atraumatic, normocephalic, normal inspection Neck exam: Present: normal inspection. Absent: tenderness, meningismus, lymphadenopathy, thyromegaly Respiratory exam: Present: normal lung sounds bilaterally. Absent: respiratory distress, accessory muscle use Cardiovascular Exam: Present: regular rate. Absent: JVD GI/Abdominal exam: Present: soft. Absent: distended, tenderness Extremities exam: Present: normal inspection, normal capillary refill. Absent: pedal edema Back exam: Present: normal inspection, full ROM. Absent: tenderness, CVA tenderness (R), CVA tenderness (L), rash noted Neurological exam: Present: alert, oriented X3 Psychiatric exam: Present: normal affect, normal mood Skin exam: Present: warm, dry, normal color. Absent: cyanosis, diaphoretic, pallor Course Vital Signs 10/24/21 10/24/21 10/25/21 18:37 23:50 00:12 Temperature 98.2 F Pulse Rate 70 68 71 Respiratory 18 18 18 Rate Blood Pressure 180/96 186/104 176/104 O2 Sat by Pulse 98 100 100 Oximetry Medical Decision Making - Medical Decision Making 46-year-old male presents for refill of his medications. States he has been out of his lisinopril and atorvastatin for 2 weeks. He does have an upcoming appointment with Dr. Puente on December 12. Lung sounds are clear, patient has no chest pain or shortness of breath. Patient was given a dose of lisinopril in the emergency room. Patient is agreeable to being discharged with a 30 day supply of medications. Case discussed with Dr. Aj. Disposition Clinical Impression: Encounter for medication refill Disposition: HOME SELF-CARE Condition: Good Instructions (If sedation given, give patient instructions): Hypertension (ED) Additional Instructions: Take medications as prescribed and follow-up with the primary care doctor as scheduled on December 12. Return to the emergency room with any new or concerning symptoms. Prescriptions: Atorvastatin [Lipitor] 80 mg PO DAILY 30 Days #30 tab lisinopriL 40 mg PO DAILY 30 Days #30 tab Is patient prescribed a controlled substance at d/c from ED?: No Referrals: Rubén Puente MD [Primary Care Provider] - 1-2 days Time of Disposition: 23:58
[2021-10-25 00:13] VITALS: BP 176/104; PULSE 71
== END 2021-10-25 00:16 | disposition home or self-care (01) ==
LOC: EC 18:15
DX: Z76.0 Encounter for issue of repeat prescription (principal); I10 Essential (primary) hypertension; E11.9 Type 2 diabetes mellitus without complications; E78.5 Hyperlipidemia, unspecified; F17.200 Nicotine dependence, unspecified, uncomplicated; Z79.4 Long term (current) use of insulin; F12.90 Cannabis use, unspecified, uncomplicated
CPT/HCPCS: 99281

== ENCOUNTER 2021-11-10 05:49 | Emergency (ER) | payer OTHER ==
[2021-11-10 05:54] VITALS: BP 180/81; PULSE 71; RESP 22; TEMP 98.2
[2021-11-10 06:12] LABS: Glucose,Whole Blood 402 mg/dL (75-99)
--- NOTE | 2021-11-10 06:29 | ED ---
General Adult HPI - General Chief complaint: Recheck/Abnormal Lab/Rx Stated complaint: Blood sugar issues Time Seen by Provider: 11/10/21 05:57 Source: patient, RN notes reviewed Mode of arrival: ambulatory Limitations: no limitations - History of Present Illness Initial comments: Is a 46-year-old male presents emergency Department chief complaint of hyp erglycemia. Patient states that he ran of his insulin. Patient has no specific complaints she just noticed that his blood sugar is high. Patient work. He normally takes 30 units of Lantus in the morning and uses a sliding scale. Patient denies any blurred vision, nausea vomiting diarrhea constipation or fevers chills no other complaints. - Related Data Home Medications Medication Instructions Recorded Confirmed Insulin Glargine,Hum.rec.anlog 30 unit SQ DAILY 08/12/18 08/26/19 [Basaglar Kwikpen U-100] Insulin Lispro [Admelog] See Protocol SQ AC-TID 09/16/18 08/26/19 Previous Rx's Medication Instructions Recorded Cephalexin [Keflex] 500 mg PO Q6HR #28 cap 08/11/20 Doxycycline [Vibramycin] 100 mg PO BID 1 Days #20 each 09/20/21 Atorvastatin [Lipitor] 80 mg PO DAILY 30 Days #30 tab 10/25/21 lisinopriL 40 mg PO DAILY 30 Days #30 tab 10/25/21 Insulin Glargine,Hum.rec.anlog 30 unit SQ DAILY #3 pen 11/10/21 [Lantus Solostar Pen] Insulin Regular, Human [NovoLIN R] See Protocol SQ DIRECTED #1 each 11/10/21 Allergies Allergy/AdvReac Type Severity Reaction Status Date / Time No Known Allergies Allergy Verified 11/10/21 05:54 Review of Systems ROS Statement: Those systems with pertinent positive or pertinent negative responses have been documented in the HPI. ROS Other: All systems not noted in ROS Statement are negative. Past Medical History Past Medical History: Diabetes Mellitus, Hyperlipidemia, Hypertension History of Any Multi-Drug Resistant Organisms: None Reported Past Surgical History: No Surgical Hx Reported Additional Past Surgical History / Comment(s): nephrotic syndrome repair as a child- resolved. Past Anesthesia/Blood Transfusion Reactions: No Reported Reaction Past Psychological History: No Psychological Hx Reported Smoking Status: Current every day smoker Past Alcohol Use History: None Reported Past Drug Use History: Marijuana General Exam Limitations: no limitations General appearance: alert, in no apparent distress Head exam: Present: atraumatic, normocephalic, normal inspection Eye exam: Present: normal appearance, PERRL, EOMI. Absent: scleral icterus, conjunctival injection, periorbital swelling ENT exam: Present: normal exam, normal oropharynx, mucous membranes moist Neck exam: Present: normal inspection, full ROM. Absent: tenderness, meningismus, lymphadenopathy Respiratory exam: Present: normal lung sounds bilaterally. Absent: respiratory distress, wheezes, rales, rhonchi, stridor Cardiovascular Exam: Present: regular rate, normal rhythm, normal heart sounds. Absent: systolic murmur, diastolic murmur, rubs, gallop, clicks Course Vital Signs 11/10/21 05:50 Temperature 98.2 F Pulse Rate 71 Respiratory 22 Rate Blood Pressure 180/81 O2 Sat by Pulse 99 Oximetry Medical Decision Making - Medical Decision Making 46-year-old male presents for hyperglycemia patient was given 10 units of insulin. Patient was given prescriptions for his insulin. Patient has no other complaints. - Lab Data Lab Results 11/10/21 Range/Units 06:10 POC Glucose (mg/dL) 402 H (75-99) mg/dL POC Glu Security Escort ID Divina Box Disposition Clinical Impression: Hyperglycemia Disposition: HOME SELF-CARE Condition: Stable Instructions (If sedation given, give patient instructions): Diabetic Hyperglycemia (ED) Additional Instructions: Please return to the Emergency Department if symptoms worsen or any other concerns. Prescriptions: Insulin Glargine,Hum.rec.anlog [Lantus Solostar Pen] 30 unit SQ DAILY #3 pen Insulin Regular, Human [NovoLIN R] See Protocol SQ DIRECTED #1 each Is patient prescribed a controlled substance at d/c from ED?: No Referrals: Rubén Puente MD [Primary Care Provider] - 1-2 days Time of Disposition: 06:28
[2021-11-10] MEDS ORDERED: INSULIN ASPART (NovoLOG) 100 UNIT/ML VIAL SQ ONE (06:30)
== END 2021-11-10 07:01 | disposition home or self-care (01) ==
LOC: EC 05:49
DX: E11.65 Type 2 diabetes mellitus with hyperglycemia (principal); E78.5 Hyperlipidemia, unspecified; I10 Essential (primary) hypertension; Z79.4 Long term (current) use of insulin; Z79.899 Other long term (current) drug therapy; F17.200 Nicotine dependence, unspecified, uncomplicated; F12.90 Cannabis use, unspecified, uncomplicated
CPT/HCPCS: 36415; 96372; 99284

== ENCOUNTER 2021-11-28 13:47 | Emergency (ER) | payer OTHER ==
[2021-11-28 14:25] VITALS: RESP 18; TEMP 98.3
[2021-11-28] MEDS ORDERED: lisinopriL 20 MG TAB PO STA (16:57)
--- NOTE | 2021-11-28 17:07 | ED ---
Extremity Problem HPI - General Chief complaint: Extremity Problem,Nontraumatic Stated complaint: High BP Time Seen by Provider: 11/28/21 16:39 Source: patient Mode of arrival: ambulatory Limitations: no limitations - History of Present Illness Initial comments: Patient is a 46-year-old male who presents to the emergency department for medication refill. Patient presented last month on 10/24 for this request. At the time patient was prescribed 1 month of lisinopril and atorvastatin until his appointment with Dr. Puente on December 12. Patient states he ran out of these medications 3 days ago. Patient has not been checking his blood pressure at home. He states he noticed mild swelling of his ankles this morning but otherwise feels well. Thinks this may be due to being on his feet a lot. Denies history of heart failure. Does not know when his last echocardiogram was performed or any results. Denies fever, chills, shortness of breath, cough, chest pain, and other concerns. - Related Data Home Medications Medication Instructions Recorded Confirmed Insulin Glargine,Hum.rec.anlog 30 unit SQ DAILY 08/12/18 08/26/19 [Basaglar Kwikpen U-100] Insulin Lispro [Admelog] See Protocol SQ AC-TID 09/16/18 08/26/19 Previous Rx's Medication Instructions Recorded Cephalexin [Keflex] 500 mg PO Q6HR #28 cap 08/11/20 Doxycycline [Vibramycin] 100 mg PO BID 1 Days #20 each 09/20/21 Atorvastatin [Lipitor] 80 mg PO DAILY 30 Days #30 tab 10/25/21 lisinopriL 40 mg PO DAILY 30 Days #30 tab 10/25/21 Insulin Glargine,Hum.rec.anlog 30 unit SQ DAILY #3 pen 11/10/21 [Lantus Solostar Pen] Insulin Regular, Human [NovoLIN R] See Protocol SQ DIRECTED #1 each 11/10/21 Atorvastatin [Lipitor] 80 mg PO DAILY #21 tab 11/28/21 lisinopriL 40 mg PO DAILY 21 Days #21 tab 11/28/21 Allergies Allergy/AdvReac Type Severity Reaction Status Date / Time No Known Allergies Allergy Verified 11/28/21 14:25 Review of Systems ROS Statement: Those systems with pertinent positive or pertinent negative responses have been documented in the HPI. ROS Other: All systems not noted in ROS Statement are negative. Past Medical History Past Medical History: Diabetes Mellitus, Hyperlipidemia, Hypertension History of Any Multi-Drug Resistant Organisms: None Reported Past Surgical History: No Surgical Hx Reported Additional Past Surgical History / Comment(s): nephrotic syndrome repair as a child- resolved. Past Anesthesia/Blood Transfusion Reactions: No Reported Reaction Past Psychological History: No Psychological Hx Reported Smoking Status: Current every day smoker Past Alcohol Use History: None Reported Past Drug Use History: Marijuana General Exam Limitations: no limitations General appearance: alert, in no apparent distress Head exam: Present: atraumatic, normocephalic, normal inspection Neck exam: Present: normal inspection Respiratory exam: Present: normal lung sounds bilaterally. Absent: respiratory distress, wheezes, rales, rhonchi, stridor Cardiovascular Exam: Present: normal rhythm, bradycardia, normal heart sounds. Absent: regular rate, systolic murmur, diastolic murmur, rubs, gallop, clicks GI/Abdominal exam: Present: soft, normal bowel sounds. Absent: distended, tenderness, guarding, rebound, rigid Extremities exam: Present: pedal edema (2+) Neurological exam: Present: alert, oriented X3, CN II-XII intact Psychiatric exam: Present: normal affect, normal mood Skin exam: Present: warm, dry, intact, normal color. Absent: rash Course Vital Signs 11/28/21 11/28/21 11/28/21 14:22 17:34 17:35 Temperature 98.3 F Pulse Rate 64 60 60 Respiratory 18 18 18 Rate Blood Pressure 149/84 169/95 167/94 O2 Sat by Pulse 96 99 Oximetry Medical Decision Making - Medical Decision Making This is a 46-year-old male who presents to the emergency department for medication refill. Thorough history and examination were performed. Patient is well-appearing. Blood pressure is 149/84. Patient ran out of his lisinopril atorvastatin 3 days ago. States he woke up with bilateral ankle swelling. There is 2+ pitting edema. He is bradycardic with normal rhythm. Denies chest pain and shortness of breath. Patient declines any blood work or further testing including chest xray. He will allow EKG. EKG shows sinus bradycardia with left ventricular hypertrophy. I did review documentation which shows last echocardiogram in August 2019. This was considered a normal study with ejection fraction at 55-60%. Patient will be sent home with lisinopril and atorvastatin. He'll follow-up at his primary care appointment on December 14 as planned. Return parameters discussed. He verbalizes understanding and is agreeable to this plan. Dr. Temple is my attending. Disposition Clinical Impression: 2+ pitting edema, Hypertension Disposition: HOME SELF-CARE Condition: Good Instructions (If sedation given, give patient instructions): Leg Edema (ED), Hypertension (ED) Additional Instructions: Please take medication as directed. The next dose will be tomorrow. Follow-up at your scheduled appointment on December 12. It is important to talk to Dr. Puente about the swelling of your legs. Keep them elevated by resting at home. Return to the emergency department experience new, concerning, or worsening symptoms. Prescriptions: lisinopriL 40 mg PO DAILY 21 Days #21 tab Is patient prescribed a controlled substance at d/c from ED?: No Referrals: Rubén Puente MD [Primary Care Provider] - 1-2 days Time of Disposition: 17:07
[2021-11-28 17:35] VITALS: PULSE 60
[2021-11-28 17:36] VITALS: BP 167/94
== END 2021-11-28 17:42 | disposition home or self-care (01) ==
LOC: EC 13:47
DX: R60.9 Edema, unspecified (principal); E11.9 Type 2 diabetes mellitus without complications; E78.5 Hyperlipidemia, unspecified; I10 Essential (primary) hypertension; F17.200 Nicotine dependence, unspecified, uncomplicated
CPT/HCPCS: 93005; 99283

== ENCOUNTER → 2022-04-17 | Outpatient (CLI) | payer OTHER ==
--- NOTE | 2022-04-17 15:00 | XR ---
EXAMINATION TYPE: XR wrist complete RT DATE OF EXAM: 04/17/2022 COMPARISON: NONE HISTORY: Pain TECHNIQUE: Four views submitted. FINDINGS: The osseous structures are intact. The joint spaces are preserved and there is no acute fracture or dislocation. IMPRESSION: 1. No definite acute fracture or dislocation if symptoms persist, follow-up study in 7 to 10 days wo uld be suggested
== END | disposition home or self-care (01) ==
LOC: RADXRMAIN 14:22
PROVIDERS: ATTEND Emergency Medicine
DX: M25.531 Pain in right wrist (principal)

== ENCOUNTER 2022-06-11 13:50 | Emergency (ER) | payer OTHER ==
--- NOTE | 2022-06-11 14:03 | ED ---
Chest Pain HPI - General Source: patient, RN notes reviewed Mode of arrival: ambulatory Limitations: no limitations <Kelechi Hallman - Last Filed: 06/11/22 14:02> <Jessica Gann - Last Filed: 06/13/22 16:22> - General Stated Complaint: Chest pain Time Seen by Provider: 06/11/22 17:15 - History of Present Illness Initial Comments: 46-year-old male presents emergency Department chief complaint of chest pain, high blood pressure. Patient does have a history of hypertension, hyperlipidemia and diabetes. Patient states that the pain started earlier today. Patient states he has taken his medications today. Patient states his blood sugar was 150 earlier. Patient has no prior cardiac stents. He denies any recent URI symptoms denies any abdominal pain. Patient states centralized left-sided chest pain (Kelechi Hallman) 46-year-old male presents to the emergency department with left pectoral pain. States that he recently just started working out. It today began having some tenderness over the left chest wall with radiation into his left arm. Pain is reproducible upon movement and palpation of the area. He also has a history of hypertension and diabetes and therefore was concerned about cardiac etiology therefore he presented to the emergency room for evaluation. States that the pain is only minimal at this time and only present when he is moving. He did not take any medications at home for his symptoms. He did not take his short- acting insulin. No previous history of cardiac disease. No fevers or chills or cough. No other alleviating, precipitating or modifying factors (Jessica Gann) - Related Data Home Medications Medication Instructions Recorded Confirmed Gabapentin 300 mg PO QID 06/11/22 06/11/22 Insulin Regular, Human [Novolin R] See Protocol SQ TID-W/MEALS PRN 06/11/22 06/11/22 Previous Rx's Medication Instructions Recorded Atorvastatin [Lipitor] 80 mg PO DAILY 30 Days #30 tab 10/25/21 lisinopriL 40 mg PO DAILY 30 Days #30 tab 10/25/21 Insulin Glargine,Hum.rec.anlog 30 unit SQ DAILY #3 pen 11/10/21 [Lantus Solostar Pen] Allergies Allergy/AdvReac Type Severity Reaction Status Date / Time No Known Allergies Allergy Verified 06/11/22 17:47 Review of Systems ROS Other: All systems not noted in ROS Statement are negative. <Kelechi Hallman - Last Filed: 06/11/22 14:02> ROS Other: All systems not noted in ROS Statement are negative. <Jessica Gann - Last Filed: 06/13/22 16:22> ROS Statement: Those systems with pertinent positive or pertinent negative responses have been documented in the HPI. EKG Findings - EKG Comments: EKG Findings:: EKG demonstrates sinus rhythm at a rate of 63. NE interval 145. QRS 92. QTC of 393. No acute ST segment elevations. Some J-point elevation in V3-V4. No reciprocal changes <Jessica Gann - Last Filed: 06/13/22 16:22> Past Medical History Past Medical History: Diabetes Mellitus, Hyperlipidemia, Hypertension History of Any Multi-Drug Resistant Organisms: None Reported Past Surgical History: No Surgical Hx Reported Additional Past Surgical History / Comment(s): nephrotic syndrome repair as a child- resolved. Past Anesthesia/Blood Transfusion Reactions: No Reported Reaction Past Psychological History: No Psychological Hx Reported Smoking Status: Current every day smoker Past Alcohol Use History: None Reported Past Drug Use History: Marijuana <Kelechi Hallman - Last Filed: 06/11/22 14:02> General Exam General appearance: alert, in no apparent distress Head exam: Present: atraumatic, normocephalic, normal inspection Eye exam: Present: normal appearance, PERRL, EOMI. Absent: scleral icterus, conjunctival injection, periorbital swelling ENT exam: Present: normal exam, mucous membranes moist Neck exam: Present: normal inspection. Absent: tenderness, meningismus, lymphadenopathy Respiratory exam: Present: normal lung sounds bilaterally, chest wall tenderness (left pectoral muscle strain). Absent: respiratory distress, wheezes, rales, rhonchi, stridor Cardiovascular Exam: Present: regular rate, normal rhythm, normal heart sounds. Absent: systolic murmur, diastolic murmur, rubs, gallop, clicks GI/Abdominal exam: Present: soft, normal bowel sounds. Absent: distended, tenderness, guarding, rebound, rigid Extremities exam: Present: normal inspection, full ROM, normal capillary refill. Absent: tenderness, pedal edema, joint swelling, calf tenderness Back exam: Present: normal inspection Neurological exam: Present: alert, oriented X3, CN II-XII intact Psychiatric exam: Present: normal affect, normal mood Skin exam: Present: warm, dry, intact, normal color. Absent: rash <Jessica Gann - Last Filed: 06/13/22 16:22> Course Vital Signs 06/11/22 06/11/22 14:05 18:49 Temperature 98.5 F Pulse Rate 70 71 Respiratory 20 15 Rate Blood Pressure 159/82 148/91 O2 Sat by Pulse 99 100 Oximetry Chest Pain MDM <Jessica Gann - Last Filed: 06/13/22 16:22> - MDM Was pt. sent in by a medical professional or institution? @ -No Did you speak to anyone other than the patient for history? @ -No Did you review nursing and triage notes? @ -Yes and I agree Were old charts reviewed? @ -No Differential Diagnosis? @ -pleurisy, acs, pe, pneumothorax, pleural effusion EKG interpreted by me (3pts min.)? @ yes X-rays interpreted by me (1pt min.)? @ yes CT interpreted by me (1pt min.)? @ no U/S interpreted by me (1pt. min.)? @ no What testing was considered but not performed? (CT, X-rays, U/S, labs)? Why? @ none What meds were considered but not given? Why? @ -pain meds but patient refused Did you discuss the management of the patient with other professionals? @ -No Did you reconcile home meds? @ -No Was smoking cessation discussed for >3mins.? @ -No Was critical care preformed (if so, how long)? @ -No Were there social determinants of health that impacted care today? How? (Homelessness, low income, unemployed, alcoholism, drug addiction, transportation, low edu. Level, literacy, decrease access to med. care, shelter, rehab)? @ None Was there de-escalation of care discussed even if they declined? (Discuss DNR or withdrawal of care, Hospice)? @ None What co-morbidities impacted this encounter? (DM, HTN, Smoking, COPD, CAD, Cancer, CVA, Hep., AIDS, mental health diagnosis, sleep apnea, morbid obesity)? @ None Was patient admitted / discharged? Upon arrival patient did wait in the emergency department waiting room for a significant period of time. He did have a 12-lead EKG performed as well as laboratory studies. Patient is then brought back to her room where I evaluated the patient. He states to minimal discomfort at this time and is requesting discharge. I did review the patient's laboratory studies. Glucose elevated at 385. Troponin is negative. Results are discussed with the patient's. He care for discharge home at this time. He is instructed to follow up with his primary care doctor. Return for any new or worsening symptoms. Patient agreeable to treatment plan and is discharged home in stable condition Undiagnosed new problem with uncertain prognosis? @ -yes Drug Therapy requiring intensive monitoring for toxicity (Heparin, Nitro, Insulin, Cardizem)? @ No Were any procedures done? @ No Diagnosis/symptom? @ -acute chest wall pain Acute, or Chronic, or Acute on Chronic? @ -acute Uncomplicated (without systemic symptoms) or Complicated (systemic symptoms)? @ -uncomplicated Side effects of treatment? @ None Exacerbation, Progression, or Severe Exacerbation] @ No Poses a threat to life or bodily function? @ Yes (Jessica Gann) Disposition <Kelechi Hallman - Last Filed: 06/11/22 14:02> Is patient prescribed a controlled substance at d/c from ED?: No Time of Disposition: 18:45 <Jessica Gann - Last Filed: 06/13/22 16:22> Clinical Impression: Chest pain Disposition: HOME SELF-CARE Condition: Stable Instructions (If sedation given, give patient instructions): Chest Pain (ED) Additional Instructions: Take Motrin for pain. Follow-up with your primary care doctor and return for any new or worsening symptoms Referrals: Rubén Puente MD [Primary Care Provider] - 1-2 days
[2022-06-11 14:06] VITALS: TEMP 98.5
[2022-06-11 14:41] LABS: Basophils % (A) 0 %; Eosinophils # (A) 0.2 k/uL (0-0.7); Eosinophils % (A) 4 %; HCT 33.5 % (39.0-53.0); HGB 11.9 gm/dL (13.0-17.5); Lymphocytes # (A) 1.1 k/uL (1.0-4.8); Lymphocytes % (A) 18 %; MCHC 35.5 g/dL (31.0-37.0); MCV 95.9 fL (80.0-100.0); Mean Platelet Volume 8.4; Monocytes # (A) 0.3 k/uL (0-1.0); Monocytes % (A) 5 %; Neutrophils # (A) 4.3 k/uL (1.3-7.7); Neutrophils % (A) 72 %; Platelet Count 229 k/uL (150-450); RDW 11.7 % (11.5-15.5); WBC 5.9 k/uL (3.8-10.6)
[2022-06-11 14:50] LABS: Albumin 3.2 g/dL (3.5-5.0); Magnesium 1.6 mg/dL (1.6-2.3); Potassium 4.4 mmol/L (3.5-5.1); Total Bilirubin 0.6 mg/dL (0.2-1.3); Total Protein 5.5 g/dL (6.3-8.2)
[2022-06-11 15:04] LABS: INR 1.1 (<1.2); Partial Thromboplastin Time 24.8 sec (22.0-30.0); Prothrombin Time 11.1 sec (9.0-12.0)
--- NOTE | 2022-06-11 17:41 | XR ---
EXAMINATION TYPE: XR chest 2V DATE OF EXAM: 06/11/2022 COMPARISON: 08/26/2019 HISTORY: Chest pain TECHNIQUE: FINDINGS: Heart is normal. Lungs are clear. Diaphragm is normal. Bony thorax appears normal. IMPRESSION: Normal chest. No change.
[2022-06-11 18:50] VITALS: BP 148/91; PULSE 71; RESP 15
== END 2022-06-11 18:52 | disposition home or self-care (01) ==
LOC: EC 13:50
DX: R07.89 Other chest pain (principal); E11.9 Type 2 diabetes mellitus without complications; I10 Essential (primary) hypertension; F17.200 Nicotine dependence, unspecified, uncomplicated; F12.90 Cannabis use, unspecified, uncomplicated; Z79.4 Long term (current) use of insulin
CPT/HCPCS: 36415; 71046; 80053; 83735; 84484; 85025; 85610; 85730; 93005; 99285

== ENCOUNTER 2022-09-12 14:14 | Emergency (ER) | payer OTHER ==
[2022-09-12 15:04] VITALS: BP 137/77; PULSE 73; RESP 18; TEMP 97.5
--- NOTE | 2022-09-12 15:19 | ED ---
General Adult HPI - General Chief complaint: Extremity Injury, Lower Stated complaint: RIGHT FOOT PAIN Time Seen by Provider: 09/12/22 15:06 Source: patient, RN notes reviewed Mode of arrival: ambulatory - History of Present Illness Initial comments: 47-year-old male presents emergency Department with chief complaint of right foot pain. He states that the pain on the lateral aspect of his right foot and is a sharp, shooting pain. It is worse with standing for prolonged periods of time. He has not taken anything for pain. Denies fever, ulceration. Denies injury. - Related Data Home Medications Medication Instructions Recorded Confirmed Gabapentin 300 mg PO QID 06/11/22 06/11/22 Insulin Regular, Human [Novolin R] See Protocol SQ TID-W/MEALS PRN 06/11/22 06/11/22 Previous Rx's Medication Instructions Recorded Atorvastatin [Lipitor] 80 mg PO DAILY 30 Days #30 tab 10/25/21 lisinopriL 40 mg PO DAILY 30 Days #30 tab 10/25/21 Insulin Glargine,Hum.rec.anlog 30 unit SQ DAILY #3 pen 11/10/21 [Lantus Solostar Pen] Allergies Allergy/AdvReac Type Severity Reaction Status Date / Time No Known Allergies Allergy Verified 09/12/22 15:04 Review of Systems ROS Statement: Those systems with pertinent positive or pertinent negative responses have been documented in the HPI. ROS Other: All systems not noted in ROS Statement are negative. Past Medical History Past Medical History: Diabetes Mellitus, Hyperlipidemia, Hypertension Additional Past Medical History / Comment(s): neuropathy History of Any Multi-Drug Resistant Organisms: None Reported Past Surgical History: No Surgical Hx Reported Additional Past Surgical History / Comment(s): nephrotic syndrome repair as a child- resolved. Past Anesthesia/Blood Transfusion Reactions: No Reported Reaction Past Psychological History: No Psychological Hx Reported Smoking Status: Current every day smoker Past Alcohol Use History: None Reported Past Drug Use History: Marijuana General Exam General appearance: alert, in no apparent distress Head exam: Present: atraumatic, normocephalic, normal inspection Eye exam: Present: normal appearance, PERRL. Absent: scleral icterus, conjunctival injection, periorbital swelling Respiratory exam: Present: normal lung sounds bilaterally. Absent: respiratory distress, wheezes, rales, rhonchi, stridor Cardiovascular Exam: Present: regular rate, normal rhythm, normal heart sounds. Absent: systolic murmur, diastolic murmur, rubs, gallop, clicks Right Lower Leg exam: Present: normal inspection, full ROM Ankle exam: Present: normal inspection, full ROM Foot/Toe exam: Present: normal inspection, full ROM, tenderness Neurovascular tendon exam: Present: no vascular compromise Left Ankle exam: Present: normal inspection, full ROM Foot/Toe exam: Present: normal inspection, full ROM Neurovascular tendon exam: Present: no vascular compromise Neurological exam: Present: alert, oriented X3 Skin exam: Present: warm, dry, intact, normal color. Absent: rash Course Vital Signs 09/12/22 15:00 Temperature 97.5 F L Pulse Rate 73 Respiratory 18 Rate Blood Pressure 137/77 O2 Sat by Pulse 98 Oximetry Medical Decision Making - Medical Decision Making Was pt. sent in by a medical professional or institution (OFELIA Trivedi, SURGICAL GARMENT FITTER, urgent care, hospital, or fdc...) When possible be specific @ -[No] Did you speak to anyone other than the patient for history (EMS, parent, family, police, friend...)? What history was obtained from this source @ -[No] Did you review nursing and triage notes (agree or disagree)? Why? @ -[I reviewed and agree with nursing and triage notes] Were old charts reviewed (outside hosp., previous admission, EMS record, old EKG, old radiological studies, urgent care reports/EKG's, fdc records)? Report findings @ -[No old charts were reviewed] Differential Diagnosis (chest pain, altered mental status, abdominal pain women, abdominal pain men, vaginal bleeding, weakness, fever, dyspnea, syncope, headache, dizziness, GI bleed, back pain, seizure, CVA, palpatations, mental health, musculoskeletal)? @ -[Fracture, sprain, plantar fasciitis, this list is not all inclusive EKG interpreted by me (3pts min.). @ -None X-rays interpreted by me (1pt min.). @ -X-ray right foot shows no acute fracture. CT interpreted by me (1pt min.). @ -[None done] U/S interpreted by me (1pt. min.). @ -[None done] What testing was considered but not performed or refused? (CT, X-rays, U/S, labs)? Why? @ -[None] What meds were considered but not given or refused? Why? @ -[None] Did you discuss the management of the patient with other professionals (professionals i.e. , PA, SURGICAL GARMENT FITTER, lab, RT, psych nurse, social media project manager, financial aid, teacher, special skills officer, rn case management)? Give summary @ -[No] Was smoking cessation discussed for >3mins.? @ -[No] Was critical care preformed (if so, how long)? @ -[No] Were there social determinants of health that impacted care today? How? (Homelessness, low income, unemployed, alcoholism, drug addiction, transportation, low edu. Level, literacy, decrease access to med. care, alf, rehab)? @ -[No] Was there de-escalation of care discussed even if they declined (Discuss DNR or withdrawal of care, Hospice)? DNR status @ -[No] What co-morbidities impacted this encounter? (DM, HTN, Smoking, COPD, CAD, Cancer, CVA, ARF, Chemo, Hep., AIDS, mental health diagnosis, sleep apnea, morbid obesity)? @ -[None] Was patient admitted / discharged? Hospital course, mention meds given and route, prescriptions, significant lab abnormalities, going to OR and other pertinent info. @ -Discharged. Patient presented with right lateral foot pain 2 weeks. X-ray right foot showed no acute fracture. Recommend shoe insoles, rest, ice, tylenol for pain as needed. d/c in stable condition. Undiagnosed new problem with uncertain prognosis? @ -[No] Drug Therapy requiring intensive monitoring for toxicity (Heparin, Nitro, Insulin, Cardizem)? @ -[No] Were any procedures done? @ -[No] Diagnosis/symptom? @ -Right foot sprain Acute, or Chronic, or Acute on Chronic? @ -Acute Uncomplicated (without systemic symptoms) or Complicated (systemic symptoms)? @ -Uncomplicated Side effects of treatment? @ -[No] Exacerbation, Progression, or Severe Exacerbation? @ -[No] Poses a threat to life or bodily function? How? (Chest pain, [place], [place], pneumonia, PE, COPD, DKA, ARF, appy, cholecystitis, CVA, Diverticulitis, Homicidal, Suicidal, threat to staff... and all critical care pts) @ -[No] Disposition Clinical Impression: Right foot sprain Disposition: HOME SELF-CARE Condition: Stable Instructions (If sedation given, give patient instructions): Ankle Sprain (ED) Additional Instructions: Recommend insoles for shoes. Tylenol as needed for pain. Please return to the Emergency Department if symptoms worsen or any other concerns. Is patient prescribed a controlled substance at d/c from ED?: No Referrals: Rubén Puente MD [Primary Care Provider] - 1-2 days Time of Disposition: 16:02
--- NOTE | 2022-09-12 15:42 | XR ---
EXAMINATION TYPE: XR foot complete RT DATE OF EXAM: 09/12/2022 CLINICAL HISTORY: Lateral pain. History of diabetes. TECHNIQUE: Frontal, lateral, and oblique images of the right foot are obtained. COMPARISON: Right foot x-ray 2013 FINDINGS: There is no acute fracture/dislocation evident in the right foot. Hallux valgus positionin g first metatarsophalangeal joint is redemonstrated and stable. Mild to moderate joint space loss is redemonstrated. Pes planus again seen. No suspicious new bony destruction. Overlying soft tissue is u nremarkable. IMPRESSION: As above. No significant change from prior.
== END 2022-09-12 16:26 | disposition home or self-care (01) ==
LOC: EC 14:14
DX: S93.601A Unspecified sprain of right foot, initial encounter (principal); E11.40 Type 2 diabetes mellitus with diabetic neuropathy, unspecified; I10 Essential (primary) hypertension; E78.5 Hyperlipidemia, unspecified; F17.200 Nicotine dependence, unspecified, uncomplicated; F12.90 Cannabis use, unspecified, uncomplicated; Z79.4 Long term (current) use of insulin; Z79.899 Other long term (current) drug therapy; X58.XXXA Exposure to other specified factors, initial encounter
CPT/HCPCS: 99283

== ENCOUNTER 2022-10-03 16:04 | Emergency (ER) | payer OTHER ==
[2022-10-03 16:10] VITALS: RESP 16; TEMP 98.1
[2022-10-03] MEDS ORDERED: ASPIRIN 81 MG PO STA (16:28)
--- NOTE | 2022-10-03 16:44 | XR ---
EXAMINATION TYPE: XR chest 2V DATE OF EXAM: 10/03/2022 4:39 PM COMPARISON: Chest radiographs from 06/11/2022 TECHNIQUE: XR chest 2V Frontal and lateral views of the chest. CLINICAL INDICATION:Male, 47 years old with history of Chest Pain; FINDINGS: Lungs/Pleura: There is no evidence of pleural effusion, focal consolidation, or pneumothorax. Pulmonary vascularity: Unremarkable. Heart/mediastinum: Cardiomediastinal silhouette is unremarkable. Musculoskeletal: No acute osseous pathology. IMPRESSION: No acute cardiopulmonary disease/process.
[2022-10-03 17:02] LABS: Basophils % (A) 0 %; Eosinophils # (A) 0.2 k/uL (0-0.7); Eosinophils % (A) 3 %; HGB 13.7 gm/dL (13.0-17.5); Lymphocytes # (A) 2.1 k/uL (1.0-4.8); Lymphocytes % (A) 32 %; MCH 33.1 pg (25.0-35.0); MCHC 35.1 g/dL (31.0-37.0); MCV 94.1 fL (80.0-100.0); Mean Platelet Volume 7.9; Monocytes # (A) 0.3 k/uL (0-1.0); Monocytes % (A) 5 %; Neutrophils % (A) 59 %; Platelet Count 220 k/uL (150-450); RBC 4.14 m/uL (4.30-5.90); WBC 6.7 k/uL (3.8-10.6)
[2022-10-03 17:13] LABS: Partial Thromboplastin Time 23.1 sec (22.0-30.0); Prothrombin Time 10.8 sec (9.0-12.0)
[2022-10-03 17:25] LABS: Albumin 4.1 g/dL (3.5-5.0); Magnesium 1.9 mg/dL (1.6-2.3); Potassium 4.2 mmol/L (3.5-5.1); Total Bilirubin 0.8 mg/dL (0.2-1.3); Total Protein 6.9 g/dL (6.3-8.2)
--- NOTE | 2022-10-03 17:26 | ED ---
General Adult HPI - General Chief complaint: Arrhythmia/Palpitations Stated complaint: chest pain Time Seen by Provider: 10/03/22 16:21 Source: patient, RN notes reviewed, old records reviewed Mode of arrival: ambulatory - History of Present Illness Initial comments: Patient is a 47-year-old male who presents emergency Department complaining of chest pain. He was placed in trauma bay 1 upon arrival. When you talk with him, and is less chest pain, more heart palpitations. Has been having blood pressure issues for the last few weeks, has been worse for the last few days. Was started on new blood pressure medications that he cannot recall. The change in medications on Saturday and Saturday. Presents today because he still having blood pressure issues as well as heart palpitations. Describes the discomfort is feeling his heart beat. Denies any shortness of breath. Denies any nausea, vomiting, diaphoresis. No known palliative or provocative factors. Denies any headaches, weakness, numbness. His no other acute complaints at this time. Triage was concerned regarding the EKG which is why patient was placed in trauma bay 1. No history of cardiac stents, does have a history of diabetes. No history of MIs or CAD. - Related Data Home Medications Medication Instructions Recorded Confirmed Gabapentin 300 mg PO QID 06/11/22 10/03/22 Insulin Regular, Human [Novolin R] See Protocol SQ TID-W/MEALS PRN 06/11/22 10/03/22 Insulin Glargine,Hum.rec.anlog 26 unit SQ DAILY 10/03/22 10/03/22 [Lantus Solostar Pen] Metoprolol Succinate (ER) [Toprol 100 mg PO DAILY 10/03/22 10/03/22 Xl] hydrALAZINE HCL [Apresoline] 10 mg PO TID 10/03/22 10/03/22 Previous Rx's Medication Instructions Recorded Atorvastatin [Lipitor] 80 mg PO DAILY 30 Days #30 tab 10/25/21 lisinopriL 40 mg PO DAILY 30 Days #30 tab 10/25/21 Allergies Allergy/AdvReac Type Severity Reaction Status Date / Time No Known Allergies Allergy Verified 10/03/22 17:10 Review of Systems ROS Statement: Those systems with pertinent positive or pertinent negative responses have been documented in the HPI. Review of Systems: CONST: Denies fever EYES: Denies blurry vision ENT: Denies nasal congestion C/V: Endorses palpitations RESP: Denies shortness of breath GI: Denies abdominal pain : Denies dysuria SKIN: Denies rash. MSK: Denies joint pain. NEURO: Denies headache ROS Other: All systems not noted in ROS Statement are negative. Past Medical History Past Medical History: Diabetes Mellitus, Hyperlipidemia, Hypertension Additional Past Medical History / Comment(s): neuropathy History of Any Multi-Drug Resistant Organisms: None Reported Past Surgical History: No Surgical Hx Reported Additional Past Surgical History / Comment(s): nephrotic syndrome repair as a child- resolved. Past Anesthesia/Blood Transfusion Reactions: No Reported Reaction Past Psychological History: No Psychological Hx Reported Smoking Status: Current every day smoker Past Alcohol Use History: None Reported Past Drug Use History: Marijuana General Exam - General Exam Comments Initial Comments: General: Appears in no acute distress. HEAD: Normal with no signs of head trauma. EYES: PERRLA, EOMI, conjunctiva normal, no discharge. ENT: Hearing grossly intact, normal oropharynx. RESPIRATORY: Clear breath sounds bilaterally. No wheezes, rales, or rhonchi. C/V: Regular rate and rhythm. S1 and S2 auscultated, no edema, peripheral pulses 2+ and intact throughout ABD: Abd is soft, nontender, nondistended EXT: Normal range of motion, no obvious deformity SKIN: No rashes or lesions observed on exposed skin. NEURO: Alert and oriented 4. No focal deficits. Course Vital Signs 10/03/22 10/03/22 10/03/22 16:07 16:30 16:40 Temperature 98.1 F Pulse Rate 59 L 61 62 Respiratory 16 16 16 Rate Blood Pressure 171/76 208/112 195/113 O2 Sat by Pulse 100 100 100 Oximetry 10/03/22 10/03/22 10/03/22 16:43 17:41 20:00 Temperature Pulse Rate 61 60 64 Respiratory 16 16 16 Rate Blood Pressure 168/101 164/97 157/89 O2 Sat by Pulse 100 100 100 Oximetry Medical Decision Making - Medical Decision Making Was pt. sent in by a medical professional or institution (, [facility], E[employer] C[employer]TER, urgent care, hospital, or longterm...) When possible be specific @ -No Did you speak to anyone other than the patient for history (EMS, parent, family, police, friend...)? What history was obtained from this source @ -No Did you review nursing and triage notes (agree or disagree)? Why? @ -I reviewed and agree with nursing and triage notes Were old charts reviewed (outside hosp., previous admission, EMS record, old EKG, old radiological studies, urgent care reports/EKG's, longterm records)? Report findings @ -Old EKGs and charts reviewed from 2016 Differential Diagnosis (chest pain, altered mental status, abdominal pain women, abdominal pain men, vaginal bleeding, weakness, fever, dyspnea, syncope, headache, dizziness, GI bleed, back pain, seizure, CVA, palpatations, mental health, musculoskeletal)? @ -Differential Chest Pain: Stable Angina, Unstable Angina, STEMI, NSTEMI Aortic Dissection, Pneumothorax, Musculoskeletal, Esophageal Spasm GERD, Cholecystitis, Pancreatitis, Zoster, this is not meant to be an all-inclusive list. EKG interpreted by me (3pts min.). @ -As above X-rays interpreted by me (1pt min.). @ -Chest x-ray reveals no obvious acute cardio pulmonary process. CT interpreted by me (1pt min.). @ -None done U/S interpreted by me (1pt. min.). @ -None done What testing was considered but not performed or refused? (CT, X-rays, U/S, labs)? Why? @ -None What meds were considered but not given or refused? Why? @ -None Did you discuss the management of the patient with other professionals (professionals i.e. , PA, EYEGLASS CUTTER, lab, RT, psych nurse, social director, field pipe lines supervisor, teacher, parachute officer, shoe caser)? Give summary @ -Discussed the EKGs with Dr. Balbuena upon arrival, cardiology humanities division chair who agrees with the assessment that it is J-point elevation. Was smoking cessation discussed for >3mins.? @ -No Was critical care preformed (if so, how long)? @ -No Were there social determinants of health that impacted care today? How? (Homelessness, low income, unemployed, alcoholism, drug addiction, transportation, low edu. Level, literacy, decrease access to med. care, detention, rehab)? @ -No Was there de-escalation of care discussed even if they declined (Discuss DNR or withdrawal of care, Hospice)? DNR status @ -No What co-morbidities impacted this encounter? (DM, HTN, Smoking, COPD, CAD, Cancer, CVA, ARF, Chemo, Hep., AIDS, mental health diagnosis, sleep apnea, morbid obesity)? @ -Hypertension Was patient admitted / discharged? Hospital course, mention meds given and route, prescriptions, significant lab abnormalities, going to OR and other pertinent info. @ -Based on the patient's presentation and physical exam, I'm concerned for cardiopulmonary etiology for his current symptoms. Patient was initially placed in trauma bay 1. I discussed EKG results with Dr. Balbuena who is on-call for cardiology who was in agreement that it appears the patient has J-point elevation. No concern for acute ST segment elevation at this time. We will obtain cardiopulmonary labs, including chest x-ray, troponin. He will receive aspirin. Vital signs are remarkable for mild hypertension but otherwise within acceptable limits. He was in agreement this plan. Patient's labs are remarkable for an undetectable troponin. Patient does have an elevated creatinine of 1.40, which does appear relatively new or, but was present back in June 2022. Chest x-ray reveals no acute cardiopulmonary process. On reevaluation, patient is feeling improved. Patient does have a low sugar and he was given food which did improve his hypoglycemia secondary to his chronic diabetes. We did discuss his workup. He still states that he never had focal chest pain but describes it more as heart palpitations. Blood pressure is improved at this time without any intervention. He is asymptomatic. Due to his abnormal presentation, I did recommend a second troponin at the 3 hour madalyn which he did agree with. We discussed his EKG findings which were J-point elevation and no concern for ST segment abnormalities. Repeat troponin remains undetectable. Patient remains asymptomatic at this time. He will be discharged home at this time. He was in agreement this plan. Strict return precautions discussed. He has an appointment Dr. Puente on October 08 but I recommended calling him see if he can follow-up sooner. Discussed monitoring his blood pressures closely at home. I instructed the patient to follow up with their PCP in the next 1-3 days. I explained that the patient should return to the emergency department if they experience any worsening symptoms. Strict return precautions were discussed with the patient. The patient expressed understanding of these instructions. I answered all questions that the patient had. The patient was discharged home in good condition with their prescriptions and follow up information. Undiagnosed new problem with uncertain prognosis? @ -No Drug Therapy requiring intensive monitoring for toxicity (Heparin, Nitro, Insulin, Cardizem)? @ -No Were any procedures done? @ -No Diagnosis/symptom? @ -Heart palpitations Acute, or Chronic, or Acute on Chronic? @ -Acute Uncomplicated (without systemic symptoms) or Complicated (systemic symptoms)? @ -Uncomplicated Side effects of treatment? @ -none Exacerbation, Progression, or Severe Exacerbation] @ -no Poses a threat to life or bodily function? @ -no Diagnosis/symptom? @ -Hypertension, ckd Acute, or Chronic, or Acute on Chronic? @ -Acute on chronic Uncomplicated (without systemic symptoms) or Complicated (systemic symptoms)? @ -Uncomplicated Side effects of treatment? @ -none Exacerbation, Progression, or Severe Exacerbation] @ -no Poses a threat to life or bodily function? @ -no - Lab Data Result diagrams: 10/03/22 16:24 10/03/22 16:24 Lab Results 10/03/22 10/03/22 10/03/22 Range/Units 16:24 16:24 16:24 WBC 6.7 (3.8-10.6) k/uL RBC 4.14 L (4.30-5.90) m/uL Hgb 13.7 (13.0-17.5) gm/dL Hct 39.0 (39.0-53.0) % MCV 94.1 (80.0-100.0) fL MCH 33.1 (25.0-35.0) pg MCHC 35.1 (31.0-37.0) g/dL RDW 12.0 (11.5-15.5) % Plt Count 220 (150-450) k/uL MPV 7.9 Neutrophils % 59 % Lymphocytes % 32 % Monocytes % 5 % Eosinophils % 3 % Basophils % 0 % Neutrophils # 4.0 (1.3-7.7) k/uL Lymphocytes # 2.1 (1.0-4.8) k/uL Monocytes # 0.3 (0-1.0) k/uL Eosinophils # 0.2 (0-0.7) k/uL Basophils # 0.0 (0-0.2) k/uL PT 10.8 (9.0-12.0) sec INR 1.0 (<1.2) APTT 23.1 (22.0-30.0) sec Sodium 141 (137-145) mmol/L Potassium 4.2 (3.5-5.1) mmol/L Chloride 105 (98-107) mmol/L Carbon Dioxide 31 H (22-30) mmol/L Anion Gap 5 mmol/L BUN 16 (9-20) mg/dL Creatinine 1.40 H (0.66-1.25) mg/dL Est GFR (CKD-EPI)AfAm 70 (>60 ml/min/1.73 sqM) Est GFR (CKD-EPI)NonAf 61 (>60 ml/min/1.73 sqM) Glucose 120 H (74-99) mg/dL POC Glucose (mg/dL) (70-110) mg/dL POC Glu Therapeutic Sales Specialist ID Calcium 9.0 (8.4-10.2) mg/dL Magnesium 1.9 (1.6-2.3) mg/dL Total Bilirubin 0.8 (0.2-1.3) mg/dL AST 24 (17-59) U/L ALT 26 (4-49) U/L Alkaline Phosphatase 91 (38-126) U/L Troponin I (0.000-0.034) ng/mL Total Protein 6.9 (6.3-8.2) g/dL Albumin 4.1 (3.5-5.0) g/dL 10/03/22 10/03/22 10/03/22 Range/Units 16:24 18:29 19:07 WBC (3.8-10.6) k/uL RBC (4.30-5.90) m/uL Hgb (13.0-17.5) gm/dL Hct (39.0-53.0) % MCV (80.0-100.0) fL MCH (25.0-35.0) pg MCHC (31.0-37.0) g/dL RDW (11.5-15.5) % Plt Count (150-450) k/uL MPV Neutrophils % % Lymphocytes % % Monocytes % % Eosinophils % % Basophils % % Neutrophils # (1.3-7.7) k/uL Lymphocytes # (1.0-4.8) k/uL Monocytes # (0-1.0) k/uL Eosinophils # (0-0.7) k/uL Basophils # (0-0.2) k/uL PT (9.0-12.0) sec INR (<1.2) APTT (22.0-30.0) sec Sodium (137-145) mmol/L Potassium (3.5-5.1) mmol/L Chloride (98-107) mmol/L Carbon Dioxide (22-30) mmol/L Anion Gap mmol/L BUN (9-20) mg/dL Creatinine (0.66-1.25) mg/dL Est GFR (CKD-EPI)AfAm (>60 ml/min/1.73 sqM) Est GFR (CKD-EPI)NonAf (>60 ml/min/1.73 sqM) Glucose (74-99) mg/dL POC Glucose (mg/dL) 53 L 80 (70-110) mg/dL POC Glu Therapeutic Sales Specialist ID Iva Gage T Haggerty, Brooke Calcium (8.4-10.2) mg/dL Magnesium (1.6-2.3) mg/dL Total Bilirubin (0.2-1.3) mg/dL AST (17-59) U/L ALT (4-49) U/L Alkaline Phosphatase (38-126) U/L Troponin I <0.012 (0.000-0.034) ng/mL Total Protein (6.3-8.2) g/dL Albumin (3.5-5.0) g/dL 10/03/22 Range/Units 19:21 WBC (3.8-10.6) k/uL RBC (4.30-5.90) m/uL Hgb (13.0-17.5) gm/dL Hct (39.0-53.0) % MCV (80.0-100.0) fL MCH (25.0-35.0) pg MCHC (31.0-37.0) g/dL RDW (11.5-15.5) % Plt Count (150-450) k/uL MPV Neutrophils % % Lymphocytes % % Monocytes % % Eosinophils % % Basophils % % Neutrophils # (1.3-7.7) k/uL Lymphocytes # (1.0-4.8) k/uL Monocytes # (0-1.0) k/uL Eosinophils # (0-0.7) k/uL Basophils # (0-0.2) k/uL PT (9.0-12.0) sec INR (<1.2) APTT (22.0-30.0) sec Sodium (137-145) mmol/L Potassium (3.5-5.1) mmol/L Chloride (98-107) mmol/L Carbon Dioxide (22-30) mmol/L Anion Gap mmol/L BUN (9-20) mg/dL Creatinine (0.66-1.25) mg/dL Est GFR (CKD-EPI)AfAm (>60 ml/min/1.73 sqM) Est GFR (CKD-EPI)NonAf (>60 ml/min/1.73 sqM) Glucose (74-99) mg/dL POC Glucose (mg/dL) (70-110) mg/dL POC Glu Therapeutic Sales Specialist ID Calcium (8.4-10.2) mg/dL Magnesium (1.6-2.3) mg/dL Total Bilirubin (0.2-1.3) mg/dL AST (17-59) U/L ALT (4-49) U/L Alkaline Phosphatase (38-126) U/L Troponin I <0.012 (0.000-0.034) ng/mL Total Protein (6.3-8.2) g/dL Albumin (3.5-5.0) g/dL - EKG Data -: EKG Interpreted by Me EKG Comments: 12-lead Electrocardiogram Interpretation Note EKG was reviewed and interpreted by myself. 12-lead ECG performed at 1614 is interpreted by me as revealing sinus bradycardia at a rate of 57 beats per minute. Stafford is normal. HI interval is 149 ms, QRS duration is 100 ms, QTc is [address] segment slight elevations with J-point elevations in the precordial leads which does appear chronic. Seen on EKGs from 2017. R wave progression across the precordium was satisfactory. 12-lead Electrocardiogram Interpretation Note EKG was reviewed and interpreted by myself. 12-lead ECG performed at 1621 is interpreted by me as revealing normal sinus rhythm at a rate of 84 beats per minute. Stafford is normal. HI interval is 146 ms, QRS duration is 99 ms, QTc is 388 ms.. There were no acute ST or T wave abnormalities to suggest myocardial ischemia or injury. Patient does have J-point elevations in the precordial leads which appear to be chronic. R wave progression across the precordium was satisfactory. By my interpretation this EKG is non-diagnostic for acute ischemia. Disposition Clinical Impression: Heart palpitations, Hypertension, CKD (chronic kidney disease) Disposition: HOME SELF-CARE Condition: Good Instructions (If sedation given, give patient instructions): Heart Palpitations (ED) Is patient prescribed a controlled substance at d/c from ED?: No Referrals: Rubén Puente MD [Primary Care Provider] - 1-2 days Time of Disposition: 20:00
[2022-10-03 18:31] LABS: Glucose,Whole Blood 53 mg/dL (70-110)
[2022-10-03 19:08] LABS: Glucose,Whole Blood 80 mg/dL (70-110)
[2022-10-03 20:01] VITALS: BP 157/89; PULSE 64
== END 2022-10-03 20:24 | disposition home or self-care (01) ==
LOC: EC 16:04
DX: R00.2 Palpitations (principal); I12.9 Hypertensive chronic kidney disease with stage 1 through stage 4 chronic kidney disease, or unspecified chronic kidney disease; E11.22 Type 2 diabetes mellitus with diabetic chronic kidney disease; N18.9 Chronic kidney disease, unspecified; F17.200 Nicotine dependence, unspecified, uncomplicated; F12.90 Cannabis use, unspecified, uncomplicated; Z79.4 Long term (current) use of insulin; Z79.899 Other long term (current) drug therapy
CPT/HCPCS: 36415; 71046; 80053; 83735; 84484; 85025; 85610; 85730; 93005; 99285

== ENCOUNTER → 2023-06-13 | Outpatient (CLI) | payer OTHER ==
--- NOTE | 2023-06-13 23:13 | US ---
EXAMINATION TYPE: US kidneys/renal and bladder DATE OF EXAM: 06/13/2023 COMPARISON: US CLINICAL INDICATION: Male, 47 years old with history of N18.31 CHRONIC KIDNEY DISEASE, STAGE 3A; CKD stage 3 EXAM MEASUREMENTS: Right Kidney: 12.0 x 4.7 x 5.5 cm Left Kidney: 11.3 x 5.7 x 5.1 cm Right Kidney: There is some mild central prominence of the collecting system. Minimal inferior pole h ydronephrosis may be present. Left Kidney: Appeared wnl Bladder: wnl Bilateral Jets seen: No IMPRESSION: 1. Suggestion of minimal right inferior pole hydronephrosis. Follow-up can be performed.
== END | disposition home or self-care (01) ==
LOC: RADUSWWP 14:50
PROVIDERS: ATTEND Family Medicine
DX: N18.31 Chronic kidney disease, stage 3a (principal)
CPT/HCPCS: 76770

== ENCOUNTER → 2023-12-30 | Outpatient (CLI) | payer OTHER ==
[2023-12-30 10:01] LABS: Partial Thromboplastin Time 24.9 sec (22.0-30.0); Prothrombin Time 11.3 sec (10.0-12.5)
[2023-12-30 16:24] LABS: Basophils # (A) 0.02 X 10*3/uL (0.00-0.10); Basophils % (A) 0.4 %; Eosinophils # (A) 0.08 X 10*3/uL (0.04-0.35); Eosinophils % (A) 1.4 %; HCT 37.5 % (39.6-50.0); HGB 12.8 g/dL (13.0-17.0); MCH 33.8 pg (27.0-32.0); MCHC 34.1 g/dL (32.0-37.0); MCV 98.9 FL (80.0-97.0); Mean Platelet Volume 11.2 FL (9.5-12.2); Monocytes # (A) 0.36 X 10*3/uL (0.20-1.00); Monocytes % (A) 6.5 %; NRBC Per 100 WBC 0 X 10*3/uL (0.00-0.01); Neutrophils % (A) 73.5 %; Platelet Count 196 X 10*3/uL (140-440); RBC 3.79 X 10*6/uL (4.40-5.60); RDW 11.5 % (11.5-14.5); WBC 5.57 X 10*3/uL (4.50-10.00)
[2023-12-30 17:23] LABS: Blood Urea Nitrogen 16.6 mg/dL (9.0-27.0); Carbon Dioxide 27.4 mmol/L (21.6-31.8); Chloride 101 mmol/L (96-109); Potassium 4.6 mmol/L (3.5-5.5); Sodium 138 mmol/L (135-145)
== END | disposition home or self-care (01) ==
LOC: LABWHC1 08:29
PROVIDERS: ATTEND Internal Medicine Nephrology
DX: R80.9 Proteinuria, unspecified (principal)
CPT/HCPCS: 36415; 80051; 82565; 84520; 85025; 85610; 85730; 86850; 86900; 86901

== ENCOUNTER 2024-01-01 07:32 | Day surgery (SDC) | payer OTHER ==
[2024-01-01 08:32] VITALS: RESP 12; TEMP 97.9
[2024-01-01] MEDS: cloNIDine HCL 0.1 MG TAB PO STA (09:56)
[2024-01-01 10:40] VITALS: BP 152/98; PULSE 58
[2024-01-01] MEDS: DESMOPRESSIN ACETATE 20 MCG in SODIUM CHLORIDE 0.9% 50 ML IVPB ONE (11:02)
== END 2024-01-01 11:00 | disposition home or self-care (01) ==
LOC: RADPROMAIN 07:32
PROVIDERS: ATTEND Internal Medicine Nephrology
DX: Z53.8 Procedure and treatment not carried out for other reasons (principal); R80.9 Proteinuria, unspecified
CPT/HCPCS: 36415

== ENCOUNTER → 2024-03-11 | Outpatient (CLI) | payer OTHER | END | disposition home or self-care (01) | LOC: LABWHC1 08:44 | PROVIDERS: ATTEND Internal Medicine Nephrology | DX: Z53.9 Procedure and treatment not carried out, unspecified reason (principal) | CPT/HCPCS: 36415; 80051; 82565; 84520; 85025; 85610; 85730; 86850; 86900; 86901 ==

== ENCOUNTER 2024-03-13 07:50 | Day surgery (SDC) | payer OTHER ==
[2024-03-11 09:13] LABS: Basophils % (A) 0 %; Eosinophils # (A) 0.1 k/uL (0-0.7); Eosinophils % (A) 2 %; HCT 38.8 % (39.0-53.0); HGB 12.8 gm/dL (13.0-17.5); Lymphocytes # (A) 0.7 k/uL (1.0-4.8); Lymphocytes % (A) 9 %; MCH 34.1 pg (25.0-35.0); MCHC 33.1 g/dL (31.0-37.0); MCV 103.1 fL (80.0-100.0); Macrocytosis Slight; Mean Platelet Volume 7.8; Monocytes # (A) 0.2 k/uL (0-1.0); Monocytes % (A) 3 %; Neutrophils # (A) 6.5 k/uL (1.3-7.7); Neutrophils % (A) 85 %; Platelet Count 218 k/uL (150-450); RBC 3.76 m/uL (4.30-5.90); RDW 11.7 % (11.5-15.5); WBC 7.7 k/uL (3.8-10.6)
[2024-03-11 09:25] LABS: African American GFR (CKD) 64 (>60 ml/min/1.73 sqM); Anion Gap 0 mmol/L; Blood Urea Nitrogen 17 mg/dL (9-20); Carbon Dioxide 32 mmol/L (22-30); Chloride 104 mmol/L (98-107); Non-African American GFR(CKD) 56 (>60 ml/min/1.73 sqM); Potassium 5.6 mmol/L (3.5-5.1); Sodium 136 mmol/L (137-145)
[2024-03-11 09:33] LABS: Partial Thromboplastin Time 24.6 sec (22.0-30.0); Prothrombin Time 11.3 sec (10.0-12.5)
[2024-03-13] MEDS ORDERED: HYDROmorphone 0.5 MG/0.5 ML SYRINGE IVP PRN (08:23)
[2024-03-13] MEDS ORDERED: ALPRAZolam 0.5 MG TAB PO PRN (08:23)
[2024-03-13] MEDS ORDERED: DESMOPRESSIN ACETATE 20 MCG in SODIUM CHLORIDE 0.9% 50 ML IVPB STA (08:27)
[2024-03-13] MEDS ORDERED: hydrALAZINE HCL 20 MG/ML 1 ML VIAL IVP STA (08:48)
[2024-03-13 09:23] VITALS: BP 162/74; PULSE 63; RESP 18; TEMP 97.9
== END 2024-03-13 09:05 | disposition home or self-care (01) ==
LOC: RADPROMAIN 07:50
PROVIDERS: ATTEND Internal Medicine Nephrology
DX: R80.9 Proteinuria, unspecified
CPT/HCPCS: 36415; 80051; 82565; 84520; 85025; 85610; 85730; 86850; 86900; 86901

== ENCOUNTER → 2024-04-27 | Outpatient (CLI) | payer OTHER ==
[2024-04-27 15:51] LABS: Glucose 157 mg/dL (70-110)
[2024-04-27 16:21] LABS: Basophils % (A) 0 %; Eosinophils # (A) 0.1 k/uL (0-0.7); Eosinophils % (A) 1 %; HCT 39.9 % (39.0-53.0); HGB 13.6 gm/dL (13.0-17.5); Lymphocytes # (A) 1.8 k/uL (1.0-4.8); Lymphocytes % (A) 22 %; MCV 100.1 fL (80.0-100.0); Mean Platelet Volume 8.1; Monocytes # (A) 0.3 k/uL (0-1.0); Monocytes % (A) 4 %; Neutrophils % (A) 72 %; Platelet Count 194 k/uL (150-450); RBC 3.99 m/uL (4.30-5.90); RDW 11.3 % (11.5-15.5); WBC 8.4 k/uL (3.8-10.6)
[2024-04-27 16:29] LABS: African American GFR (CKD) 62 (>60 ml/min/1.73 sqM); Anion Gap 3 mmol/L; Blood Urea Nitrogen 15 mg/dL (9-20); Carbon Dioxide 29 mmol/L (22-30); Chloride 107 mmol/L (98-107); Non-African American GFR(CKD) 54 (>60 ml/min/1.73 sqM); Potassium 3.8 mmol/L (3.5-5.1); Sodium 139 mmol/L (137-145)
[2024-04-27 16:34] LABS: INR 1.1 (<1.2); Partial Thromboplastin Time 23.7 sec (22.0-30.0); Prothrombin Time 11.7 sec (10.0-12.5)
[2024-04-27 18:44] LABS: C-Peptide <0.02 ng/mL (0.81-3.85)
== END | disposition home or self-care (01) ==
LOC: LABWHC1 11:14
PROVIDERS: ATTEND Nurse Practitioner Gerontology
DX: E10.65 Type 1 diabetes mellitus with hyperglycemia (principal); R80.9 Proteinuria, unspecified
CPT/HCPCS: 36415; 80051; 82043; 82565; 82570; 82947; 83036; 84520; 84681; 85025; 85610; 85730; 86850; 86900; 86901

== ENCOUNTER 2024-04-29 07:27 | Day surgery (SDC) | payer OTHER ==
[2024-04-29] MEDS ORDERED: DESMOPRESSIN ACETATE 4 MCG/ML VIAL (MDV) IV ONE (08:05)
[2024-04-29 08:41] LABS: Glucose,Whole Blood 242 mg/dL (70-110)
[2024-04-29 08:53] VITALS: RESP 16; TEMP 98.2
[2024-04-29] MEDS: DESMOPRESSIN ACETATE 20 MCG in SODIUM CHLORIDE 0.9% 50 ML IVPB ONE (09:14)
[2024-04-29] MEDS: HYDROmorphone 0.5 MG/0.5 ML SYRINGE IVP STA (10:00)
--- NOTE | 2024-04-29 12:51 | CT ---
EXAMINATION TYPE: CT biopsy renal RT DATE OF EXAM: 04/29/2024 10:35 AM COMPARISON: None CLINICAL INDICATION:Male, 48 years old with history of R80.9 PROTEINURIA, UNSPECIFIED; right kidmey b x for proteinuria TECHNIQUE: CT guided percutaneous random kidney biopsy using coaxial method. One or more CT dose reduction strat egies were utilized during this examination. Total CT dose 662 mGycm. Total fluoroscopy time was [address] DLP: 662 mGycm, Automated exposure control for dose reduction was used. FINDINGS: The procedure was explained to the patient including risks of bleeding, bruising, infection, damage t o nearby organs and need for additional therapy including potential surgery. All questions were answ ered and consent was obtained. The previous studies were reviewed. The patient was placed on the CT couch in the supine position. The overlying skin was marked and prepped using sterile method. Timeout was taken per protocol. Follo wing administration of local anesthesia a 17 gauge coaxial needle was introduced on the right kidney. The coaxial needle tip was directed into the kidney cortex with CT guidance. Multiple 18 gauge coa xial biopsies were then obtained. Following the procedure the needle was removed and sterile dress ing was applied to the percutaneous site. Post biopsy imaging demonstrated small hematoma. Patient w as taken for postprocedure observation in stable condition. IMPRESSIONS: Status post percutaneous random right kidney biopsy as described above. Pathology results pending. [facility], , 04/29/2024 12:48 PM
[2024-04-29 14:34] VITALS: BP 164/82; PULSE 58
== END 2024-04-29 14:34 | disposition home or self-care (01) ==
LOC: RADPROMAIN 07:27
PROVIDERS: ATTEND Internal Medicine Nephrology
DX: R80.9 Proteinuria, unspecified (principal)
CPT/HCPCS: 96365; 96374; 50200; 77012; J2597; J1171

== ENCOUNTER 2024-05-11 15:14 | Emergency (ER) | payer OTHER ==
[2024-05-11 15:21] VITALS: RESP 18
[2024-05-11] MEDS: MORPHINE SULFATE 4 MG/ML SYRINGE IM STA (15:31)
[2024-05-11] MEDS: KETOROLAC 15 MG/ML 1 ML VIAL IM STA (15:36)
[2024-05-11] MEDS: ACETAMINOPHEN TAB 500 MG TAB PO STA (15:40)
[2024-05-11] MEDS: IBUPROFEN 800 MG TAB PO STA (15:40)
--- NOTE | 2024-05-11 15:42 | ED ---
Upper Extremity HPI - General Chief Complaint: Extremity Injury, Upper Stated Complaint: R Wrist Injury Time Seen by Provider: 05/11/24 15:23 Source: patient, RN notes reviewed Mode of arrival: ambulatory Limitations: no limitations - History of Present Illness Initial Comments: This is a 48-year-old male who presents to the emergency department for a right wrist injury. Patient was going down the stairs when he fell, and went to catch himself with his right hand. States that he landed with all of the pressure on his right wrist. Denies sustaining any other injuries or hitting his head. He has since had pain over the right wrist and is having difficulty moving it. MD Complaint: Injury to:: right, wrist - Related Data Home Medications Medication Instructions Recorded Confirmed Gabapentin 300 mg PO QID 06/11/22 04/22/24 Insulin Regular, Human [Novolin R] See Protocol SQ TID-W/MEALS PRN 06/11/22 04/22/24 Insulin Glargine,Hum.rec.anlog 30 unit SQ DAILY 10/03/22 04/22/24 [Lantus Solostar Pen] hydrALAZINE HCL 25 mg PO DIRECTED 04/22/24 04/22/24 Previous Rx's Medication Instructions Recorded Atorvastatin [Lipitor] 80 mg PO DAILY 30 Days #30 tab 10/25/21 lisinopriL 40 mg PO DAILY 30 Days #30 tab 10/25/21 Allergies Allergy/AdvReac Type Severity Reaction Status Date / Time No Known Allergies Allergy Verified 05/11/24 15:21 Review of Systems ROS Statement: Those systems with pertinent positive or pertinent negative responses have been documented in the HPI. ROS Other: All systems not noted in ROS Statement are negative. Past Medical History Past Medical History: Diabetes Mellitus, Hyperlipidemia, Hypertension, Renal Disease Additional Past Medical History / Comment(s): neuropathy, heart dysrythmia (unsure what kind), type one diabetic, nnephrotic syndrom age 11, benign HTN with CKD, Stage 3b kidney disease, proteinuria History of Any Multi-Drug Resistant Organisms: None Reported Past Surgical History: No Surgical Hx Reported Additional Past Surgical History / Comment(s): nephrotic syndrome - kidney biopsy done as a child- treated with steriods Past Anesthesia/Blood Transfusion Reactions: No Reported Reaction Past Psychological History: No Psychological Hx Reported Smoking Status: Former smoker Past Alcohol Use History: Rare Past Drug Use History: Marijuana - Past Family History Father Family Medical History: No Reported History General Exam Limitations: no limitations General appearance: alert, in no apparent distress Head exam: Present: atraumatic, normocephalic, normal inspection Respiratory exam: Present: normal lung sounds bilaterally. Absent: respiratory distress, wheezes, rales, rhonchi, stridor Cardiovascular Exam: Present: regular rate, normal rhythm, normal heart sounds. Absent: systolic murmur, diastolic murmur, rubs, gallop, clicks Extremities exam: Present: other (Tenderness and swelling over the dorsal aspect of the right wrist. No snuffbox tenderness. Range of motion limited by pain. 2+ radial pulses) Neurological exam: Present: alert, oriented X3, CN II-XII intact Psychiatric exam: Present: normal affect, normal mood Skin exam: Present: warm, dry, intact, normal color. Absent: rash Course Vital Signs 05/11/24 05/11/24 15:18 16:27 Temperature 98.6 F 98.1 F Pulse Rate 98 76 Respiratory 18 18 Rate Blood Pressure 146/81 136/76 O2 Sat by Pulse 100 95 Oximetry Medical Decision Making - Medical Decision Making This is a 48-year-old male who presents to the emergency department for a right wrist injury. Was pt. sent in by a medical professional or institution? @ -No Did you speak to anyone other than the patient for history? @ -No Did you review nursing and triage notes? @ -Yes, and I agree, it is accurate with regards to the patient's symptoms. Were old charts reviewed? @ -No Differential Diagnosis? @ -Differential Musculoskeletal Muscular strain, contusion, ligament sprain, fracture, arthritis, septic arthritis, bursitis, cellulitis, muscle spasm, nerve compression, DVT, arterial occlusion, herpes zoster, electrolyte abnormality, tumor.... This is not meant to be in all inclusive list EKG interpreted by me (3pts min.)? @ -Not obtained X-rays interpreted by me (1pt min.)? @ -X-ray of the right wrist obtained. My interpretation identifies no acute fractures. CT interpreted by me (1pt min.)? @ -Not obtained U/S interpreted by me (1pt. min.)? @ -Not obtained What testing was considered but not performed? (CT, X-rays, U/S, labs)? Why? @ -None What meds were considered but not given? Why? @ -None Did you discuss the management of the patient with other professionals? @ -No Did you reconcile home meds? @ -No Was smoking cessation discussed for >3mins.? @ -I discussed smoking cessation for greater than 3 minutes. The risk of smoking were discussed with the patient including but not limited to risks of cancer, stroke, coronary artery disease and COPD. Also discussed with patient were multiple methods of quitting smoking. Lastly we discussed the financial cost of smoking. Was critical care preformed (if so, how long)? @ -No Were there social determinants of health that impacted care today? How? (Homelessness, low income, unemployed, alcoholism, drug addiction, transportation, low edu. Level, literacy, decrease access to med. care, half-way, rehab)? @ -No Was there de-escalation of care discussed even if they declined? (Discuss DNR or withdrawal of care, Hospice)? @ -No What co-morbidities impacted this encounter? (DM, HTN, Smoking, COPD, CAD, Cancer, CVA, Hep., AIDS, mental health diagnosis, sleep apnea, morbid obesity)? @ -Smoking Was patient admitted / discharged? @ -Discharged. X-ray of the right wrist obtained revealing no acute fractures. Pain treated in the emergency department. Advised that this is likely related to a sprain. His wrist was bandaged with an Ladarius wrap. Advised using Ladarius wraps or an [id number] wrist brace as needed for support. Also advised ibuprofen and Tylenol as well as ice and elevation. Patient discharged home in stable condition. Case discussed with ED attending Dr. Cortes. Return precautions reviewed in depth, the patient is instructed to return to the emergency department with any new, worsening, or concerning symptoms. Patient verbalized understanding. Undiagnosed new problem with uncertain prognosis? @ -None Drug Therapy requiring intensive monitoring for toxicity (Heparin, Nitro, Insulin, Cardizem)? @ -None Were any procedures done? @ -None Diagnosis/symptom? @ -Right wrist sprain Acute, or Chronic, or Acute on Chronic? @ -Acute Uncomplicated (without systemic symptoms) or Complicated (systemic symptoms)? @ -Uncomplicated Side effects of treatment? @ -None Exacerbation, Progression, or Severe Exacerbation] @ -Not applicable Poses a threat to life or bodily function? @ -No - Radiology Data Radiology results: report reviewed, image reviewed Disposition Clinical Impression: Right wrist sprain, Nicotine dependence Disposition: HOME SELF-CARE Instructions (If sedation given, give patient instructions): Wrist Sprain (ED) Additional Instructions: Return to the emergency department with any new, worsening, or concerning symptoms. Alternate with ibuprofen and Tylenol as needed for pain relief. Apply ice and elevate the wrist as needed. You can also use a wrist brace or [id number] Ladarius bandage. Follow up with your primary care provider in 1-2 days. Is patient prescribed a controlled substance at d/c from ED?: No Referrals: Rubén Puente MD [Primary Care Provider] - 1-2 days Time of Disposition: 16:17
--- NOTE | 2024-05-11 16:00 | XR ---
Right wrist. HISTORY: Pain following fall. COMPARISON: 04/17/2022. TECHNIQUE: 4 views the right wrist are obtained. FINDINGS: There is no fracture, dislocation, intraosseous, intra-articular soft tissue abnormality. IMPRESSION: No significant abnormality seen. No evidence of acute trauma. [facility] , 05/11/2024 3:58 PM
[2024-05-11] MEDS: IBUPROFEN 600 MG STARTER PACK 4 TAB BTL PO STA (16:23)
[2024-05-11 16:28] VITALS: BP 136/76; PULSE 76; TEMP 98.1
== END 2024-05-11 16:30 | disposition home or self-care (01) ==
LOC: EC 15:14
DX: S63.501A Unspecified sprain of right wrist, initial encounter (principal); Z87.891 Personal history of nicotine dependence; W19.XXXA Unspecified fall, initial encounter
CPT/HCPCS: 73110; 99283; 99406; 96372; J2270

== ENCOUNTER 2024-05-27 16:17 | Emergency (ER) | payer OTHER ==
--- NOTE | 2024-05-27 16:35 | ED ---
General Adult HPI - General Chief complaint: Upper Respiratory Infection Stated complaint: cough, sob Time Seen by Provider: 05/27/24 16:19 Source: EMS Mode of arrival: EMS - History of Present Illness Initial comments: This patient is 48-year-old man presenting to have evaluation of cough and bilateral rib pains. Patient states he sometimes feels short of breath if he has a coughing spell. Patient states symptoms started approximately 5 days ago with some congestion and cough. He has had some subjective fever and chills. Cough is nonproductive. -: days(s) Location: chest Quality: dull Consistency: intermittent Improves with: none Worsens with: other (Cough) Associated Symptoms: cough Treatments Prior to Arrival: none - Related Data Home Medications Medication Instructions Recorded Confirmed Gabapentin 300 mg PO QID 06/11/22 05/27/24 Insulin Glargine,Hum.rec.anlog 18 unit SQ DAILY 10/03/22 05/27/24 [Lantus Solostar Pen] hydrALAZINE HCL 25 mg PO TID PRN 04/22/24 05/27/24 Ergocalciferol [Vitamin D2 (1250 1,250 mcg PO MO 05/27/24 05/27/24 Mcg = 70379 Iu)] Glucagon [Gvoke Pfs 1-Pack Syringe] 1 mg SQ ONCE PRN 05/27/24 05/27/24 Insulin Aspart [Insulin Aspart See Protocol SQ AC-TID 05/27/24 05/27/24 Flexpen] Previous Rx's Medication Instructions Recorded Atorvastatin [Lipitor] 80 mg PO DAILY 30 Days #30 tab 10/25/21 lisinopriL 40 mg PO DAILY 30 Days #30 tab 10/25/21 Allergies Allergy/AdvReac Type Severity Reaction Status Date / Time No Known Allergies Allergy Verified 05/27/24 17:37 Review of Systems ROS Statement: Those systems with pertinent positive or pertinent negative responses have been documented in the HPI. ROS Other: All systems not noted in ROS Statement are negative. Constitutional: Reports: fever, chills. Denies: weakness ENT: Reports: congestion Respiratory: Reports: as per HPI, cough. Denies: dyspnea, wheezes, hemoptysis Cardiovascular: Reports: as per HPI, chest pain. Denies: palpitations, orthopnea, edema, syncope Gastrointestinal: Denies: abdominal pain, nausea, vomiting Genitourinary: Denies: dysuria, hematuria Musculoskeletal: Denies: back pain Skin: Denies: rash Neurological: Denies: headache, weakness Past Medical History Past Medical History: Diabetes Mellitus, Hyperlipidemia, Hypertension, Renal Disease Additional Past Medical History / Comment(s): neuropathy, heart dysrythmia (unsure what kind), type one diabetic, nnephrotic syndrom age 11, benign HTN with CKD, Stage 3b kidney disease, proteinuria History of Any Multi-Drug Resistant Organisms: None Reported Past Surgical History: No Surgical Hx Reported Additional Past Surgical History / Comment(s): nephrotic syndrome - kidney biopsy done as a child- treated with steriods Past Anesthesia/Blood Transfusion Reactions: No Reported Reaction Past Psychological History: No Psychological Hx Reported Smoking Status: Former smoker Past Alcohol Use History: Rare Past Drug Use History: Marijuana - Past Family History Father Family Medical History: No Reported History General Exam General appearance: alert, in no apparent distress Head exam: Present: atraumatic, normocephalic Eye exam: Present: normal appearance. Absent: scleral icterus, conjunctival injection ENT exam: Present: normal oropharynx Neck exam: Present: normal inspection Respiratory exam: Present: normal lung sounds bilaterally, other (Intermittent cough during exam). Absent: respiratory distress, wheezes, rales, rhonchi, stridor, accessory muscle use Cardiovascular Exam: Present: regular rate, normal rhythm, normal heart sounds. Absent: systolic murmur, diastolic murmur, rubs, gallop GI/Abdominal exam: Present: soft. Absent: distended, tenderness, guarding, rebound, rigid, mass Extremities exam: Present: normal inspection, normal capillary refill. Absent: pedal edema, calf tenderness Back exam: Present: normal inspection. Absent: CVA tenderness (R), CVA tenderness (L) Neurological exam: Present: alert Skin exam: Present: warm, dry, intact, normal color. Absent: rash Course Vital Signs 05/27/24 16:19 Temperature 98.8 F Pulse Rate 71 Respiratory 20 Rate Blood Pressure 176/90 O2 Sat by Pulse 98 Oximetry EKG Findings - EKG Results: EKG: interpreted by ERMD, sinus rhythm (Rate 85 bpm), normal axis, normal ST/T - Blocks, [place], Hypertrophy, ST Abn: Repolarization changes or abnormalities: early repolarization due to [facility] Medical Decision Making - Medical Decision Making Was pt. sent in by a medical professional or institution (OFELIA Trivedi, ENGINEERING PROGRAM MANAGER, urgent care, hospital, or care home...) When possible be specific @ -Oh Did you speak to anyone other than the patient for history (EMS, parent, family, police, friend...)? What history was obtained from this source @ -[No] Did you review nursing and triage notes (agree or disagree)? Why? @ -[I reviewed and agree with nursing and triage notes] Were old charts reviewed (outside hosp., previous admission, EMS record, old EKG, old radiological studies, urgent care reports/EKG's, care home records)? Report findings @ -[No old charts were reviewed] Differential Diagnosis (chest pain, altered mental status, abdominal pain women, abdominal pain men, vaginal bleeding, weakness, fever, dyspnea, syncope, headache, dizziness, GI bleed, back pain, seizure, CVA, palpatations, mental health, musculoskeletal)? @ -[not applicable] EKG interpreted by me (3pts min.). @ -[As above] X-rays interpreted by me (1pt min.). @ -[None done] CT interpreted by me (1pt min.). @ -[None done] U/S interpreted by me (1pt. min.). @ -[None done] What testing was considered but not performed or refused? (CT, X-rays, U/S, labs)? Why? @ -[None] What meds were considered but not given or refused? Why? @ -[None] Did you discuss the management of the patient with other professionals (professionals i.e. OFELIA Trivedi, ENGINEERING PROGRAM MANAGER, lab, RT, psych nurse, health and social care teacher, machine buffer, teacher, artillery officer, case briefer)? Give summary @ -[No] Was smoking cessation discussed for >3mins.? @ -[No] Was critical care preformed (if so, how long)? @ -[No] Were there social determinants of health that impacted care today? How? (Homelessness, low income, unemployed, alcoholism, drug addiction, transportation, low edu. Level, literacy, decrease access to med. care, [facility], rehab)? @ -[No] Was there de-escalation of care discussed even if they declined (Discuss DNR or withdrawal of care, Hospice)? DNR status @ -[No] What co-morbidities impacted this encounter? (DM, HTN, Smoking, COPD, CAD, Cancer, CVA, ARF, Chemo, Hep., AIDS, mental health diagnosis, sleep apnea, morbid obesity)? @ -[None] Was patient admitted / discharged? Hospital course, mention meds given and route, prescriptions, significant lab abnormalities, going to OR and other pertinent info. @ -[hospital course] Undiagnosed new problem with uncertain prognosis? @ -[No] Drug Therapy requiring intensive monitoring for toxicity (Heparin, Nitro, Insulin, Cardizem)? @ -[No] Were any procedures done? @ -[No] Diagnosis/symptom? @ -[default] Acute, or Chronic, or Acute on Chronic? @ -[default] Uncomplicated (without systemic symptoms) or Complicated (systemic symptoms)? @ -[default] Side effects of treatment? @ -[No] Exacerbation, Progression, or Severe Exacerbation? @ -[No] Poses a threat to life or bodily function? How? (Chest pain, [place], [place], pneumonia, PE, COPD, DKA, ARF, appy, cholecystitis, CVA, Diverticulitis, Homicidal, Suicidal, threat to staff... and all critical care pts) @ -[No] All treatments are based on ideal body weight as in ED triage - Lab Data Lab Results 05/27/24 Range/Units 17:03 Influenza Type A (PCR) Not Detected (Not Detectd) Influenza Type B (PCR) Not Detected (Not Detectd) RSV (PCR) Detected A (Not Detectd) SARS-CoV-2 (PCR) Not Detected (Not Detectd) Disposition Clinical Impression: RSV (acute bronchiolitis due to respiratory syncytial virus) Disposition: HOME SELF-CARE Condition: Good Instructions (If sedation given, give patient instructions): Respiratory Syncytial Virus (ED) Is patient prescribed a controlled substance at d/c from ED?: No Referrals: Rubén Puente MD [Primary Care Provider] - 1-2 days
--- NOTE | 2024-05-27 17:33 | XR ---
EXAMINATION TYPE: XR chest 2V DATE OF EXAM: 05/27/2024 5:07 PM COMPARISON: Chest radiographs from 10/03/2022 CLINICAL INDICATION: Male, 48 years old with history of cough; TECHNIQUE: XR chest 2V Frontal and lateral views of the chest. FINDINGS: Lungs/Pleura: There is no evidence of pleural effusion, focal consolidation, or pneumothorax. Pulmonary vascularity: Unremarkable. Heart/mediastinum: Cardiomediastinal silhouette is unremarkable. Musculoskeletal: No acute osseous pathology. IMPRESSION: No acute cardiopulmonary disease/process. [facility], , 05/27/2024 5:31 PM
[2024-05-27 19:35] VITALS: BP 146/78; PULSE 73; RESP 18; TEMP 98.9
== END 2024-05-27 19:01 | disposition home or self-care (01) ==
LOC: EC 16:17
DX: J21.0 Acute bronchiolitis due to respiratory syncytial virus (principal); Z87.891 Personal history of nicotine dependence
CPT/HCPCS: 71046; 87636; 99285